=== PATIENT | female | born 1945 | race Caucasian/White ===

== ENCOUNTER → 2018-01-21 12:27 | Outpatient (CLI) | payer MEDICARE, SELFPAY ==
--- NOTE | 2018-01-21 12:31 | RAD_ITS ---
STUDY: X-RAY CHEST REASON FOR EXAM: Female, 72 years old. Anterior right chest breast discomfort. TECHNIQUE: PA and lateral views of the chest. COMPARISON: None. FINDINGS: The lungs are clear and expanded. There is no demonstrated pleural abnormality. Normal size heart. Normal mediastinum and alicia. Normal visualized pulmonary arteries. Normal visualized aortic arch and descending thoracic aorta. Normal visualized thoracic spine. Normal visualized ribs, clavicles, and shoulders. There is no demonstrated abnormality of the visualized soft tissue structures of the upper abdomen. RAD/Chest PA and Lateral IMPRESSION: No demonstrated acute cardiopulmonary process. Electronically Signed: Claire Monahan MD at 15:54 EDT Tel , Service support ,
== END ==
PROVIDERS: Family Provider Family Medicine; PCP Family Medicine; Visit Provider Nurse Practitioner Family
DX: R07.81 Pleurodynia (principal); R06.00 Dyspnea, unspecified
CPT/HCPCS: 71046

== ENCOUNTER → 2018-12-01 09:24 | Outpatient (CLI) | payer MEDICARE, SELFPAY ==
[2018-11-06 15:06] VITALS: BMI 27.7
--- NOTE | 2018-12-01 09:35 | RAD_ITS ---
STUDY: X-RAY - LEFT HAND REASON FOR EXAM: Female, 73 years old. Pain. TECHNIQUE: 2 view(s) of the hand. COMPARISON: None. FINDINGS: Normal radiocarpal articulation. Normal distal radioulnar joint. Normal visualized carpal bones. Normal carpal articulations Normal carpometacarpal articulation of the thumb. Normal second through fifth carpometacarpal joints. Normal metacarpi. Normal metacarpophalangeal joint of the thumb. Normal interphalangeal joint of the thumb. Normal proximal and distal phalanges of the thumb. Normal metacarpophalangeal joints of the second through fifth fingers. There is diffuse articular joint space narrowing of the proximal and distal interphalangeal joints of the second through fifth fingers, but without erosive changes or periarticular soft tissue swelling. Normal phalanges of the second through fifth fingers. The soft tissue structures are unremarkable. RAD/Hand 2 Views IMPRESSION: Joint space narrowing of the proximal and distal interphalangeal joint suggestive of osteoarthritis. Electronically Signed: Andrew Gee MD at 14:34 EST , Service support ,
--- NOTE | 2018-12-01 09:37 | RAD_ITS ---
STUDY: X-RAY - RIGHT HAND REASON FOR EXAM: Female, 73 years old. Pain. No known injury. TECHNIQUE: AP and lateral view(s) of the hand. COMPARISON: None. FINDINGS: Normal radiocarpal articulation. Normal distal radioulnar joint. Normal visualized carpal bones. Normal carpal articulations Normal carpometacarpal articulation of the thumb. Normal second through fifth carpometacarpal joints. Normal metacarpi. Normal metacarpophalangeal joint of the thumb. Normal interphalangeal joint of the thumb. Normal proximal and distal phalanges of the thumb. Normal metacarpophalangeal joints of the second through fifth fingers. There is diffuse articular joint space narrowing of the proximal and distal interphalangeal joints of the second through fifth fingers, but without erosive changes or periarticular soft tissue swelling. Normal phalanges of the second through fifth fingers. The soft tissue structures are unremarkable. RAD/Hand 2 Views IMPRESSION: Joint space narrowing of the proximal and distal interphalangeal joint suggestive of osteoarthritis. Electronically Signed: Andrew Gee MD at 14:34 EST , Service support ,
[2018-12-01 12:52] LABS: Cholesterol 193 mg/dL (200); High Density Lipoprotein 61 mg/dL; Triglycerides 80 mg/dL; Very Low Density Lipoprotein 16 mg/dL (5-40)
== END ==
PROVIDERS: Family Provider Family Medicine; PCP Family Medicine; Referring Provider Family Medicine; Visit Provider Family Medicine
DX: E78.5 Hyperlipidemia, unspecified (principal); M79.645 Pain in left finger(s); M79.644 Pain in right finger(s)
CPT/HCPCS: 36415; 73120; 80061

== ENCOUNTER 2019-03-12 13:00 | Outpatient (RCR) | payer MEDICARE, SELFPAY ==
[2019-02-24 15:37] VITALS: BMI 26.9
--- NOTE | 2019-02-27 13:45 | HP.PTEVAL_ITS ---
Patient's Visit Information DARA QUESADA is a 74 year old F referred to Physical Therapy by Aguila Gonzalez DO with a diagnosis of BPPV. Date of Evaluation: 02/27/19 Physical Therapist: Rey Dumont DPT, OCS, CSCS - Visit Plan Frequency: 1x/Week Duration: 4-6 Weeks Plan: weekly as needed x 2-4 for ensure symptoms resolving while weans meclizine, psoitional if needed adn progress habituation/return to head movement ex. - Subjective Findings: Dizzy since last Saturday. Meclizine kicked in Saturday. Worked at [employer] Saturday adn was fine. Went home 4:00ish and got in tub and washed hair and dried hair and felt a little funny dizzy. Leaned over to dry hair and fell over forward. Room was spinning. got her into bed then ceiling fan moved. nauseous. Happened with movement for 2 days and saw doctor on Saturday slightly better but not great. Sleeps OK, not spinning in bed anymore. Feeels a little light headed overall but has been in bed all weak. No appetite. Basic ADLs are OK but careful. Washed hair today. Stilla voiding going out. Has avoided working in [employer]. 80% better overall. - Objective Walks normal but hesitant to move head, trasnfers normal. c/s aROM WNL and painfree. Balance is pretty good for age but hesitant. Oculomotor is unremarkable: no nystagmus with gaze or head shake. pursuit and saccades are normal. - head thrust. normal convergence. - skew eye deviation. MSQ is normal [id number] up from L knee and head turns and nods whcih give quick 2 seconds dizzy of 3/10 - Balance Scores Functional Gait Assessment Score: 26 % Disability: 13.3400 CATSIB Score (Max score 120 seconds): 95 - Goals Goal 1:: Abolish dizzy ness Goal Time Frame: 2-4 Weeks Goal 2:: Pateint back to 100% activities without symptoms. Goal Time Frame: 4-6 Weeks Goal 3:: Grocery shop and flower garden normally Goal Time Frame: 2-4 Weeks - Rehabilitation Potential Physical Therapy Diagnosis: resolving BPPV Rehabilitation Potential: Fair - Anticipated Interventions Patient/Client Instruction: Educate patient on: Condition, Plan of Care For the Purpose of:: To increase tolerance to activity/condition/position Comment: vestibular exercises adn return to function/confidence. For the Purpose of:: To increase tolerance to activity/condition/position Thank you for the opportunity to evaluate your patient. For Medicare and Medicare HMO plans, please review the plan of care and approve it. It will need to be FAXED BACK to us at [phone] for Medicare purposes. For Medicare only, by signing this I certify the plan of care. Please let me know if there are questions or concerns regarding this plan of care. Physician Signature: Date:
--- NOTE | 2019-03-12 12:57 | HP.PTDCSUM ---
HP - PT D/C Summary It has been my pleasure to treat DARA QUESADA under orders from Aguila Gonzalez DO, for the diagnosis of BPPV for a total of 3 visit(s). Discharge Date: 03/12/19 Please see the following information for a summary of their discharge status. - Subjective Subjective: Getting better. Not as goofy as I used to be. Saw dr. Gonzalez at concert and feeling adn looking better. No more meclizine. Much better overall. Worked out in garden today. Slight dizzyness opening eyes in shower. Doing eye exercises without a problem. No dizzy spells. activities are normal. - Overall Improvement % Improvement: 100 - Objective Objective/Function: No dizzyness created today with VOR, MSQ, and - B hallpike adn roll tests. Walks wella dn feeling good. - Goals Goal 1:: Abolish dizzy ness Goal Progress: Progressing Goal 2:: Pateint back to 100% activities without symptoms. Goal Progress: Goal Met Goal 3:: Grocery shop and flower garden normally Goal Progress: Goal Met - Plan Plan: D/c - D/C Information Discharge Comments: Doing well, no problems. Will contact doctor if dizzyness returns. If there are questions or concerns regarding this patient's physical therapy, please feel free to call me at [phone]. Thank you for the referral of this patient. Sincerely, Rey Dumont, DPT, OCS, CSCS
== END 2019-03-12 19:00 | disposition home or self-care (01) ==
LOC: PT 13:00
PROVIDERS: Family Provider Family Medicine; PCP Family Medicine; Referring Provider Family Medicine; Visit Provider Family Medicine
DX: H81.10 Benign paroxysmal vertigo, unspecified ear (principal)
CPT/HCPCS: 97162; 97530

== ENCOUNTER → 2020-06-23 | Outpatient (CLI) | payer MEDICARE, SELFPAY ==
[2020-06-23 09:43] VITALS: BMI 25.8
--- NOTE | 2020-06-23 10:34 | RAD_ITS ---
STUDY: X-RAY - RIGHT KNEE REASON FOR EXAM: Female, 75 years old. right knee pain, recent fall TECHNIQUE: 4 view(s) of the knee. COMPARISON: None. FINDINGS: Normal visualized distal femur. Normal visualized proximal tibia and fibula. Normal proximal tibiofibular articulation. There are mild degenerative changes with joint space narrowing of the medial knee compartment. Normal lateral femorotibial compartment. Normal patellofemoral articulation. The soft tissue structures are unremarkable. RAD/Knee 4 or More Views IMPRESSION: Mild degenerative changes or joint space narrowing of the medial knee compartment. There is no evidence of fracture, dislocation, free intra-articular calcifications, or suprapatellar effusion. Electronically Signed: Charanjit Abel MD at 22:47 EDT , Service support ,
== END | disposition home or self-care (01) ==
LOC: MTRAD 10:34
PROVIDERS: PCP Family Medicine; Referring Provider Nurse Practitioner Family; Visit Provider Nurse Practitioner Family
DX: M25.561 Pain in right knee (principal)
CPT/HCPCS: 73564

== ENCOUNTER 2020-07-06 09:00 | Outpatient (RCR) | payer MEDICARE, SELFPAY ==
[2020-06-25 10:37] VITALS: BMI 26.9
--- NOTE | 2020-06-29 09:27 | HP.PTEVAL_ITS ---
Patient's Visit Information DARA QUESADA is a 75 year old F referred to Physical Therapy by BINDU Patrick with a diagnosis of BPV. Date of Evaluation: 06/29/20 Physical Therapist: Rey Dumont DPT, OCS, CSCS - Visit Plan Frequency: 1x/Week Duration: 2-4 Weeks Plan: weekly as needed 2-4 weeks for positional treatments and progressions of acitvity. - Subjective Dizzyness returned(had this years ago) a week ago. Had knee pain and woke up in am feeling dizzy upon sitting up, room spun transiently. Had knee checked out and x ray and did OK. Later that day leaned over to squirt trash can and got very dizzy and fell. Lasted several minutes. Then went to bed. [facility] and given BD exercises adn slowly improving. 80% better. Last spinning was last night at supper doing BD exercises. Avoids activities because of this. Reads but very little else. Hpouse cleaning has not been done. Not employed. Sleeps well. Hobbies include crafting cards and stamping and work in [employer] wh[employer]alyteh she cannot do. R knee hurts and hard to get off floor anyway. Fell one time slipping on kitchen floor wetness. Cancelled trip to [place] due to dizzyness. - Pain R knee Pain Intensity (Out of 10): 2 Pain Intensity Range: 2, 7 Comment: Dr. Gonzalez for knee - Objective Walks slow and hesitant but I. Trasnfers I. cervical AROM is WNL and painfree but hesitant to move. - R Hallpike. + L hallpike slight dizzyness and slight appearing up torsional nystagmus. Treated with Hammad then nauseous and did not wish to reattempt. - Balance Scores Functional Gait Assessment Score: 23 % Disability: 23.3400 - Goals Goal 1:: Pt feel dizzyness abolished and 99% better. Goal Time Frame: 2-4 Weeks Goal 2:: Pt return to wrok in [employer] withotu hesitation Goal Time Frame: 2-4 Weeks Goal 3:: FGA to show improvement in fucntion. Goal Time Frame: 2-4 Weeks - Rehabilitation Potential Physical Therapy Diagnosis: L post canal BPPV Rehabilitation Potential: Fair - Anticipated Interventions Patient/Client Instruction: Educate patient on: Condition, Plan of Care For the Purpose of:: To increase tolerance to activity/condition/position Therapeutic Exercise to Include: Gait and locomotor training Comment: Positional For the Purpose of:: To increase tolerance to activity/condition/position Thank you for the opportunity to evaluate your patient. For Medicare and Medicare HMO plans, please review the plan of care and approve it. It will need to be FAXED BACK to us at [phone] for Medicare purposes. For Medicare only, by signing this I certify the plan of care. Please let me know if there are questions or concerns regarding this plan of ca re. Physician Signature: Date:
--- NOTE | 2020-09-13 15:24 | HP.PT.NRP ---
DARA QUESADA was seen in my office for initial evaluation on 06/29/20. The following Plan of Care was established for this patient: Initial Frequency: 1x/Week Initial Duration: 2-4 Weeks Patient/Client Instruction: Educate patient on: Condition, Plan of Care For the Purpose of:: To increase tolerance to activity/condition/position Therapeutic Exercise to Include: Gait and locomotor training For the Purpose of:: To increase tolerance to activity/condition/position This patient was last seen in our office 07/06/20. Pertinent comments regarding their Physical therapy will appear below: Pt seen two visits and was 80% better at last session. He cancelled his follow up. At this point, it has been over two months and I will discontinue from my care due to nonattendance. At this point I will be discontinuing this patient from physical therapy. I would be happy to see this patient again in the future if found appropriate by the physician. Thank you! Rey Dumont, DPT, OCS, CSCS
== END 2020-07-06 19:00 | disposition home or self-care (01) ==
LOC: PT 09:00
PROVIDERS: PCP Family Medicine; Referring Provider Physician Assistant; Visit Provider Physician Assistant
DX: H81.10 Benign paroxysmal vertigo, unspecified ear (principal)
CPT/HCPCS: 97161; 97530

== ENCOUNTER 2020-12-28 23:24 | Emergency (ER) | payer MEDICARE, SELFPAY ==
[2020-06-25 10:37] VITALS: BMI 26.9
[2020-12-28 23:25] VITALS: BP 150/95; PULSE 87; RESP 16; TEMP 36.6; O2SAT 98; BMI 26.5
--- NOTE | 2020-12-28 23:33 | ED.DCSUM_ITS ---
History of Present Illness Chief Complaint: Chest Pain Informant: Patient Narrative: 75-year-old female presenting with chest pain which is present for 7 days but constant for the last 3 days. She describes it as retrosternal and radiating to her neck and her left shoulder. She denies cardiac history. Patient states she feels a little bit lightheaded and short of breath now. Patient states she recovered from COVID-19 that she had about a month ago. She denies fever, chills. She has nausea without vomiting. She states she has no significant medical history and only takes medication for arthritis and insomnia. She states she has been having difficulty sleeping even with Ambien. - Past Medical History (1) Benign paroxysmal vertigo Status: Chronic (2) Hyperlipemia Status: Chronic (3) Osteopenia Status: Chronic (4) Arthritis Status: Chronic Past Medical History - Allergies and Home Meds Allergies/Adverse Reactions: Allergies aspirin Allergy (Severe, Verified 12/28/20 23:29) Stomach Pain atorvastatin [From Lipitor] Allergy (Severe, Verified 12/28/20 23:29) Joint Pain chlorpheniramine [From Isoclor] Allergy (Severe, Verified 12/28/20 23:29) Heart Races codeine Allergy (Severe, Verified 12/28/20 23:29) Heart Races esomeprazole [From Nexium] Allergy (Severe, Verified 12/28/20 23:29) Joint Pain guaifenesin [From Isoclor] Allergy (Severe, Verified 12/28/20 23:29) Heart Races ibuprofen [From Motrin] Allergy (Severe, Verified 12/28/20 23:29) Heart Races morphine Allergy (Severe, Verified 12/28/20 23:29) Rash naproxen [From Naprosyn] Allergy (Severe, Verified 12/28/20 23:29) Stomach Pain prednisone Allergy (Severe, Verified 12/28/20 23:29) stomach pain propoxyphene [From Darvon] Allergy (Severe, Verified 12/28/20 23:29) Other Heart Races pseudoephedrine [From Isoclor] Allergy (Severe, Verified 12/28/20 23:29) Heart Races sulindac [From Clinoril] Allergy (Severe, Verified 12/28/20 23:29) Rash Penicillins Allergy (Intermediate, Verified 12/28/20 23:29) Rash Sulfa (Sulfonamide Antibiotics) Allergy (Intermediate, Verified 12/28/20 23:29) Rash Keflex Allergy (Severe, Uncoded 12/28/20 23:29) heart races Primary Care Physician: Aguila Gonzalez DO [Primary Care Provider] - Prior records reviewed: Yes Past Medical History: - - Reviewed in problem list Lives: Spouse/ Significant Other Smoking Status: Never smoker Alcohol: None Drugs: None Review of Systems General: Denies: Chills, Fever, Sweats Eyes: Denies: Visual changes - bilaterally, Diplopia ENT: Denies: Rhinorrhea, Sore throat Cardiovascular: Reports: Chest pain. Denies: Palpitations, Heart racing Respiratory: Reports: Dyspnea, Cough Gastrointestinal: Reports: Nausea. Denies: Abdominal pain, Vomiting Genitourinary: Denies: Dysuria, Hematuria, Frequency Musculoskeletal: Denies: Back pain, Extremity Pain Skin: Denies: Rash, Wounds Neurological: Denies: Headache, Weakness, Numbness Physical Exam Vital Signs/Narrative: Vital Signs Temp Pulse Resp BP Pulse Ox 12/28/20 23:25 97.9 F 87 16 150/95 H 98 Inital Vital Signs reviewed: Yes General: Well nourished, No Acute Distress Head: Atraumatic Eyes: Perrl, EOMI, Pale conjunctiva ENT: Moist mucous membranes, No rhinorrhea Cardiovascular: Regular rate, Regular rhythm Abdomen: Soft, Nontender, Nondistended Extremities: Nontender, No edema Skin: Normal color, No rash. Negative for: Cyanosis, Diaphoresis Neurological: Alert, Oriented x3, Cranial nerves II-XII grossly intact Psychological: Normal affect, Normal Mood Diagnostic/Tx/Re-eval Clinical Impression(s) from Imaging Studies Chest X-Ray 12/28/20 23:33 IMPRESSION: Normal x-ray examination of the chest. Electronically Signed: Dylon Hamilton DO at 0:09 EST Tel , Service support , Chest CTA 12/29/20 00:14 IMPRESSION: Normal CTA chest examination, without a demonstrated pulmonary embolism or arterial dissection. Lungs are clear. Mild COPD. Electronically Signed: Dylon Hamilton DO at 0:58 EST Tel , Service support , Laboratory Data 12/28/20 12/28/20 12/28/20 23:45 23:45 23:45 WBC 6.8 RBC 4.28 Hgb 13.4 Hct 39.7 MCV 92.8 MCH 31.3 MCHC 33.8 RDW Std Deviation 42.3 RDW Coeff of Vanda 12.3 Plt Count 254 MPV 9.2 Immature Gran % (Auto) 0.600 Neut % (Auto) 46.7 L Lymph % (Auto) 42.4 H [place] % (Auto) 8.2 Eos % (Auto) 1.5 Baso % (Auto) 0.6 Absolute Neuts (auto) 3.2 Absolute Lymphs (auto) 2.88 Nucleated RBC % 0 D-Dimer Quant (PE/DVT) 0.84 H* Sodium 141 Potassium 3.6 Chloride 109 H Carbon Dioxide 27.0 Anion Gap 5 BUN 14 Creatinine 0.95 Estim Creat Clear Calc 48.64 Est GFR (MDRD) Af Amer 74 Est GFR (MDRD) Non-Af 61 BUN/Creatinine Ratio 14.8 Glucose 99 Calcium 9.0 Troponin I < 0.015 - Medical Decision Making 75-year-old female presenting with chest pain which is been constant for 3 days. She notes that it started about 7 days ago. Today she feels like she has shortness of breath. Patient states she had Covid about a month ago. Denies cardiac history. Patient had EKG performed on arrival which is sinus rhythm with slight sinus arrhythmia without ST elevations or depressions as interpreted by myself. Chest x-ray is interpreted by myself shows no acute cardiopulmonary process. Patient's troponin is negative. Given that she has had 3 days of constant pain I do not believe this is cardiac. She did have an elevated D- dimer at 0.84 it had follow-up CTA of the chest which did not identify any pulmonary emboli, acute infection, dissection. Patient CBC shows a white blood cell count of 6.6, hemoglobin 13.4, platelets 254. GFR and electrolytes unremarkable. Patient has multiple medicine allergies but states that she wants to try Naprosyn. She states has had this in the past and had stomach pain. She does not want to try anything narcotic. Patient will be discharged home with a prescription for Naprosyn. Chest pain 1. Chest pain ED Disposition - Plan for ED Patient: Disposition: Home or Assisted Living Instructions: ED Chest Pain, Uncertain Cause Prescriptions: Naproxen [Naprosyn] 500 mg PO BID PRN #20 tab Prescription Printed Referrals: Aguila Gonzalez DO [Primary Care Provider] -
--- NOTE | 2020-12-28 23:33 | EKG12_ITS ---
Test Reason : DIZZY Blood Pressure : / mmHG Vent. Rate : 083 BPM Atrial Rate : 083 BPM P-R Int : 156 ms QRS Dur : 084 ms QT Int : 382 ms P-R-T Axes : 056 023 050 degrees QTc Int : 448 ms Normal sinus rhythm with sinus arrhythmia Normal ECG Confirmed by CAITLIN FYR, SETH ([id number]), editor greeting card ALONA WEST ([id number]) on 01/02/2021 2:35:16 PM Referred By: JERRELL Confirmed By:SETH TUCKER MD
--- NOTE | 2020-12-28 23:33 | RAD_ITS ---
STUDY: X-RAY CHEST REASON FOR EXAM: Female, 75 years old. chest pain TECHNIQUE: Single AP portable view of the chest. COMPARISON: 01/21/2018 FINDINGS: The lungs are clear and expanded. There is no demonstrated pleural abnormality. Normal size heart. Normal mediastinum and alicia. Normal visualized pulmonary arteries. Normal visualized aortic arch and descending thoracic aorta. Normal visualized thoracic spine. Normal visualized ribs, clavicles, and shoulders. There is no demonstrated abnormality of the visualized soft tissue structures of the upper abdomen. RAD/Chest 1 View (Portable) IMPRESSION: Normal x-ray examination of the chest. Electronically Signed: Dylon Hamilton DO at 0:09 EST Tel , Service support ,
[2020-12-28 23:50] VITALS: BP 155/94; PULSE 73; RESP 18; O2SAT 98
[2020-12-28 23:52] LABS: Absolute Lymphocyte Count 2.88 X10^3/uL (0.83-4.51); Absolute Neutrophil Count 3.2 X10^3/uL (2.0-7.7); Basophil# 0.04 X10^3/uL; Basophil% 0.6 % (0-1); Eosinophils% 1.5 % (0-5); Hematocrit 39.7 % (37-47); Hemoglobin 13.4 g/dL (12.0-15.0); Lymphocyte # 2.88 X10^3/ul (4.0); Lymphocyte % 42.4 % (19-41); Mean Corp Hgb Conc 33.8 g/dL (32-36); Mean Corpuscular Hgb 31.3 pg (27.0-32.0); Mean Corpuscular Volume 92.8 fL (81-99); Mean Platelet Vol. 9.2 fl (6.2-12.0); Monocyte# 0.56 X10^3/uL; Monocyte% 8.2 % (0-10); NRBC Flagged by Analyzer 0 % (0-5); Neutrophil # 3.18 X10^3/uL (2.7-7.7); Neutrophil % 46.7 % (47-70); Platelet Count 254 K/mm3 (150-450); RBC Distribution Width CV 12.3 % (11.6-14.6); RBC Distribution Width SD 42.3 fl (35.1-43.9); Red Blood Count 4.28 M/mm3 (4.2-5.4); White Blood Count 6.8 K/mm3 (4.4-11.0)
[2020-12-29 00:09] LABS: Anion Gap 5 (5-15); BUN 14 mg/dL (7-18); BUN/Creat Ratio 14.8 RATIO (10-20); Chloride 109 mmol/L (98-107); Creatinine, Serum 0.95 mg/dL (0.55-1.02); EST Glomerular Filtration Rate 61 mL/min (>60); Est Glom Filt Rate - Afr Amer 74 mL/min (>60); Estimated Creatinine Clearance 48.64 ml/min; Glucose 99 mg/dL (74-106); Potassium 3.6 mmol/L (3.5-5.1); Sodium Level 141 mmol/L (136-145)
[2020-12-29 00:12] LABS: D-Dimer Quantitative (DVT/PE) 0.84 FEU/ug/m (0.27-0.49)
--- NOTE | 2020-12-29 00:14 | CT_ITS ---
STUDY: CTA CHEST REASON FOR EXAM: Female, 75 years old. chest pain RADIATION DOSAGE (If Supplied By Facility): CTDIvol = ( 13.68 ) mGy, DLP = ( 304.25 ) mGycm TECHNIQUE: The examination was performed with the intravenous administration of IV 75mL Isovue-370. Post-processing of the angiographic images was performed, with multiplanar reformation and 3D reconstruction. Individualized dose optimization techniques were used for this CT. COMPARISON: None. FINDINGS: Normal enhancement of the main pulmonary artery and right and left pulmonary arteries. Normal enhancement of the bilateral peripheral pulmonary arteries. There is no demonstrated pulmonary embolism. Normal thoracic aorta and visualized great vessels. There is no demonstrated aortic dissection. Normal heart and pericardium. Normal mediastinum. Normal hilar regions. Normal visualized trachea and bronchi. The lungs are hyper expanded, with flattening of the hemidiaphragms. Normal pulmonary parenchyma. Normal pleura. Normal chest wall structures. Normal osseous structures. Normal visualized upper abdomen. CT/CTA Chest W/WO Contrast IMPRESSION: Normal CTA chest examination, without a demonstrated pulmonary embolism or arterial dissection. Lungs are clear. Mild COPD. Electronically Signed: Dylon Hamilton DO at 0:58 EST Tel , Service support ,
[2020-12-29 02:19] VITALS: BP 159/85; PULSE 61; RESP 16; O2SAT 96
[2020-12-29 03:04] VITALS: BP 147/69; PULSE 64; RESP 16
[2020-12-29 03:05] VITALS: BP 147/69; PULSE 64; RESP 16
== END 2020-12-29 03:05 | disposition home or self-care (01) ==
PROVIDERS: Emergency Provider Student in an Organized Health Care Education/Training Program; PCP Family Medicine
DX: R07.9 Chest pain, unspecified (principal); E78.5 Hyperlipidemia, unspecified; M19.90 Unspecified osteoarthritis, unspecified site; Z86.16 Personal history of COVID-19
CPT/HCPCS: 71045; 71275; 80048; 84484; 85025; 85379; 93005; 99284; Q9967; A4216

== ENCOUNTER → 2021-01-03 14:24 | Outpatient (CLI) | payer MEDICARE, SELFPAY ==
[2021-01-03 15:50] LABS: ALB/GLOB Ratio 1.1 RATIO (0.9-2.4); AST(SGOT) 12 U/L (15-37); Alanine Aminotransfer ALT/SGPT 21 U/L (13-56); Albumin, Serum 3.7 g/dL (3.2-5.0); Alkaline Phosphatase 68 U/L (45-117); Anion Gap 5 (5-15); BUN 18 mg/dL (7-18); BUN/Creat Ratio 19.8 RATIO (10-20); Calcium,Total 9.3 mg/dL (8.5-10.1); Chloride 104 mmol/L (98-107); Creatinine, Serum 0.91 mg/dL (0.55-1.02); EST Glomerular Filtration Rate 64 mL/min (>60); Est Glom Filt Rate - Afr Amer 78 mL/min (>60); Globulin 3.4 g/dL (2.2-4.2); Glucose 99 mg/dL (74-106); Protein, Total 7.1 g/dL (6.4-8.2); Sodium Level 139 mmol/L (136-145)
[2021-01-03 15:52] LABS: Hemoglobin 14.1 g/dL (12.0-15.0); Mean Corp Hgb Conc 33.6 g/dL (32-36); Mean Corpuscular Hgb 31.5 pg (27.0-32.0); Platelet Count 278 K/mm3 (150-450); RBC Distribution Width CV 12.3 % (11.6-14.6); RBC Distribution Width SD 42.7 fl (35.1-43.9); Red Blood Count 4.47 M/mm3 (4.2-5.4); White Blood Count 7.6 K/mm3 (4.4-11.0)
[2021-01-03 15:53] LABS: Erythrocyte Sedimentation Rate 6 mm/hr (0-30)
== END ==
PROVIDERS: PCP Family Medicine; Referring Provider Family Medicine; Visit Provider Family Medicine
DX: H81.10 Benign paroxysmal vertigo, unspecified ear (principal); M25.50 Pain in unspecified joint; R60.9 Edema, unspecified
CPT/HCPCS: 36415; 80053; 85027; 85652

== ENCOUNTER → 2022-10-08 | Outpatient (CLI) | payer MEDICARE, SELFPAY ==
--- NOTE | 2022-10-08 14:07 | CT_ITS ---
STUDY: CT MAXILLOFACIAL SINUSES REASON FOR EXAM: Female, 77 years old. Facial pain and swelling after fall RADIATION DOSAGE (If Supplied By Facility): CTDIvol = ( 29.38 ) mGy, DLP = ( 562.15 ) mGycm TECHNIQUE: The patient was scanned in a multi detector CT scanner. High resolution axial imaging was performed without the administration of intravenous contrast material. Sagittal and coronal images were reconstructed. Individualized dose optimization techniques were used for this CT. COMPARISON: None. FINDINGS: FRONTAL SINUSES: Normal aeration, without mucosal inflammatory disease. ETHMOIDAL SINUSES: Normal aeration, without mucosal inflammatory disease. MAXILLARY SINUSES: Normal aeration, without mucosal inflammatory disease. SPHENOIDAL SINUSES: There is a 4 mm sphenoid sinus mucosal retention cyst. There is patency of the bilateral maxillary infundibuli with normal uncinate processes, ethmoid bullae, and hiatus semilunaris. Normal bilateral middle turbinates. Normal bilateral inferior turbinates. There is a right-sided nasal spur with minimal deviation. There is patency of the bilateral nasal airways. The visualized bilateral orbital contents are normal. There is visualized degenerative change of the cervical spine otherwise normal-appearing osseous structures.. CT/Sinus/Facial Bone IMPRESSION: Her millimeter sphenoid sinus mucosal retention cyst, otherwise Normal CT examination of the maxillofacial sinuses. Electronically Signed: Claire Monahan MD at 15:16 EST ,
--- NOTE | 2022-10-08 14:07 | CT_ITS ---
STUDY: CT BRAIN WITH AND WITHOUT CONTRAST REASON FOR EXAM: Female, 77 years old. Headaches after head trauma/fall RADIATION DOSAGE (If Supplied By Facility): CTDIvol = ( 44.99 ) mGy, DLP = ( 1580.97 ) mGycm TECHNIQUE: Transaxial CT imaging of the brain was performed pre and post contrast administration. The examination was performed with intravenous administration of 50 CC ISOVUE 300. Individualized dose optimization techniques were used for this CT. COMPARISON: None. FINDINGS: Normal soft tissue structures. Normal calvarium. There is mild cerebral atrophy with widening of the extra-axial spaces and ventricular dilatation. There are few areas of decreased attenuation within the white matter tracts of the supratentorial brain, consistent with microvascular disease changes. Normal basal ganglia and thalami. Normal brainstem. Visualized [place]-cisterna magna. Normal cerebellum. Contrast images demonstrate a cystic structure within the left side transverse sinus suggesting a probable focus of arachnoid cyst. There is no intracranial hemorrhage. There are no findings of an acute ischemic infarction. Normal visualized paranasal sinuses. CT/Brain/Head W/WO Contrast IMPRESSION: Atrophy no visualized acute hemorrhage infarct or edema or evidence of enhancing mass or extra-axial fluid collection. Electronically Signed: Claire Monahan MD at 15:01 EST Reading Location ID and State: [facility] / [place] Tel , Service support ,
[2022-10-08 14:56] LABS: CREATININE FINGERSTICK < 0.9 mg/dL (0.55-1.02); EGFR FINGERSTICK > 60.0000 mL/min (>60)
== END | disposition home or self-care (01) ==
PROVIDERS: PCP Family Medicine; Referring Provider Physician Assistant; Visit Provider Physician Assistant
DX: R51.9 Headache, unspecified (principal); R22.0 Localized swelling, mass and lump, head
CPT/HCPCS: 70470; 70486

== ENCOUNTER → 2022-11-28 | Outpatient (CLI) | payer MEDICARE, SELFPAY ==
[2022-11-28 15:00] LABS: Absolute Lymphocyte Count 2.23 X10^3/uL (0.83-4.51); Absolute Neutrophil Count 2.7 X10^3/uL (2.0-7.7); Basophil# 0.05 X10^3/uL; Basophil% 0.9 % (0-1); Eosinophil# 0.13 X10^3/uL; Eosinophils% 2.3 % (0-5); Hematocrit 39.4 % (37-47); Hemoglobin 13.2 g/dL (12.0-15.0); Lymphocyte # 2.23 X10^3/ul (0.83-4.51); Lymphocyte % 39.9 % (19-41); Mean Corp Hgb Conc 33.5 g/dL (32-36); Mean Corpuscular Hgb 32.6 pg (27.0-32.0); Mean Corpuscular Volume 97.3 fL (81-99); Mean Platelet Vol. 9.6 fl (6.2-12.0); Monocyte# 0.48 X10^3/uL; Monocyte% 8.6 % (0-10); NRBC Flagged by Analyzer 0 % (0-5); Neutrophil # 2.68 X10^3/uL (2.7-7.7); Neutrophil % 47.9 % (47-70); Platelet Count 274 K/mm3 (150-450); RBC Distribution Width CV 12.3 % (11.6-14.6); Red Blood Count 4.05 M/mm3 (4.2-5.4); White Blood Count 5.6 K/mm3 (4.4-11.0)
[2022-11-28 16:14] LABS: ALB/GLOB Ratio 1.1 RATIO (0.9-2.4); AST(SGOT) 15 U/L (15-37); Alanine Aminotransfer ALT/SGPT 15 U/L (13-56); Albumin, Serum 3.5 g/dL (3.2-5.0); Alkaline Phosphatase 68 U/L (45-117); Anion Gap 8 (5-15); BUN 14 mg/dL (7-18); BUN/Creat Ratio 15.1 RATIO (10-20); Calcium,Total 9.1 mg/dL (8.5-10.1); Chloride 107 mmol/L (98-107); Cholesterol 221 mg/dL (200); Creatinine, Serum 0.93 mg/dL (0.55-1.02); EST Glomerular Filtration Rate 62 mL/min (>60); Est Glom Filt Rate - Afr Amer 75 mL/min (>60); Globulin 3.2 g/dL (2.2-4.2); Glucose 99 mg/dL (74-106); High Density Lipoprotein 60 mg/dL; Potassium 3.9 mmol/L (3.5-5.1); Protein, Total 6.7 g/dL (6.4-8.2); Sodium Level 142 mmol/L (136-145); Triglycerides 170 mg/dL; Very Low Density Lipoprotein 34 mg/dL (5-40)
== END | disposition home or self-care (01) ==
PROVIDERS: PCP Family Medicine; Referring Provider Family Medicine; Visit Provider Family Medicine
DX: Z00.00 Encounter for general adult medical examination without abnormal findings (principal); H81.10 Benign paroxysmal vertigo, unspecified ear; E78.5 Hyperlipidemia, unspecified
CPT/HCPCS: 36415; 80053; 80061; 85025

== ENCOUNTER → 2023-01-08 | Outpatient (CLI) | payer MEDICARE, SELFPAY ==
--- NOTE | 2023-01-08 12:53 | BI_ITS ---
MAMMOGRAPHY - BILATERAL SCREENING 3-D TOMOSYNTHESIS REASON FOR EXAM: Female, 77 years old. Routine screening PERTINENT HISTORY: No significant family history. TECHNIQUE: 2-D mammograms and 3-D Tomosynthesis of the breast (s) were performed. CAD was performed. COMPARISON: 10/09/2019 FINDINGS: The breast composition is heterogeneously dense that can obscure small breast masses. Scattered benign calcifications are seen. No dense spiculated masses or suspicious microcalcifications are identified. No architectural distortion is identified. There is no skin thickening or retraction. There has been no significant change since the prior study. BI/SCRN MAMM (CAD)W/TAYLER BILAT IMPRESSION: No mammographic signs of malignancy. Routine yearly mammograms recommended. ASSESSMENT CATEGORY: BIRADS Category 2: Benign. A letter regarding these results will be sent to the patient by the facility within 30 days. FOLLOW UP RECOMMENDATION: Yearly follow up mammogram recommended. (A) Approximately 10% of breast cancers are not detected by mammography. A normal mammogram should not delay biopsy of a clinically suspicious abnormality. Electronically Signed: Gaetano Schulte MD at 14:25 EDT ,
--- NOTE | 2023-01-08 13:00 | BD_ITS ---
STUDY: DUAL ENERGY X-RAY ABSORPTIOMETRY / DXA REASON FOR EXAM: Female, 77 years old. Screening TECHNIQUE: Bone Mineral Density (BMD) measurements of lumbar spine and bilateral hips were obtained. COMPARISON: None. FINDINGS: Lumbar Spine (L1-L4): g/cm2 (0.770) / T-score (-2.3) / Z-score (0.2) Findings are suggestive of osteopenia with a high fracture risk. Left Femur Total: g/cm2 (0.805) / T-score (-1.1) / Z-score (0.8) Left Femoral Neck: g/cm2 (0.688) / T-score (-1.5) / Z-score (0.7) Right Femur Total: g/cm2 (0.805) / T-score (-1.1) / Z-score (0.8) Right Femoral Neck: g/cm2 (0.694) / T-score (-1.4) / Z-score (0.8) BD/Dexa Bone Density Study IMPRESSION: The patient is considered osteopenic as outlined below according to World Jani Organization (WHO) criteria with a high fracture risk. Reference Information: The T-score is the number of standard deviations above or below the standard which is normal for young adults at their peak bone mineral density. The World Health Organization (WHO) interprets the T-scores as follows: Above -1 Normal bone density Between -1 and -2.5 Osteopenia Equal to / or below -2.5 Osteoporosis As a practical clinical guideline, osteopenia may be graded as follows: Mild -1 through -1.5 Moderate -1.6 through -2.0 Severe -2.1 through -2.4 The Z-score is the number of standard deviations above or below age-matched controls. A Z-score of less than -1.5 would be considered abnormal. References: 1. NIH Osteoporosis and Related Bone Diseases www osteo.org 2. International Society for Clinical Densitometry www iscd.org 3. National Osteoporosis Foundation www nof.org Electronically Signed: Andrew Gee MD at 11:02 EDT ,
== END | disposition home or self-care (01) ==
LOC: OPBD 12:50
PROVIDERS: PCP Family Medicine; Visit Provider Family Medicine
DX: Z12.31 Encounter for screening mammogram for malignant neoplasm of breast (principal); Z78.0 Asymptomatic menopausal state
CPT/HCPCS: 77063; 77067; 77080

== ENCOUNTER → 2023-12-03 | Outpatient (CLI) | payer MEDICARE, SELFPAY ==
[2023-12-03 12:16] LABS: Absolute Lymphocyte Count 2.04 X10^3/uL (0.83-4.51); Absolute Neutrophil Count 2.5 X10^3/uL (2.0-7.7); Basophil# 0.05 X10^3/uL; Basophil% 0.9 % (0-1); Eosinophil# 0.14 X10^3/uL; Eosinophils% 2.5 % (0-5); Hematocrit 38.9 % (37-47); Hemoglobin 12.7 g/dL (12.0-15.0); Lymphocyte # 2.04 X10^3/ul (0.83-4.51); Lymphocyte % 36.8 % (19-41); Mean Corp Hgb Conc 32.6 g/dL (32-36); Mean Corpuscular Hgb 31.4 pg (27.0-32.0); Mean Platelet Vol. 10.3 fl (6.2-12.0); Monocyte# 0.74 X10^3/uL; Monocyte% 13.4 % (0-10); NRBC Flagged by Analyzer 0 % (0-5); Neutrophil # 2.54 X10^3/uL (2.7-7.7); Neutrophil % 45.9 % (47-70); Platelet Count 256 K/mm3 (150-450); RBC Distribution Width CV 12.5 % (11.6-14.6); RBC Distribution Width SD 44.4 fl (35.1-43.9); Red Blood Count 4.05 M/mm3 (4.2-5.4); White Blood Count 5.5 K/mm3 (4.4-11.0)
--- OUTSIDE RECORDS SUMMARY | 2023-12-03 12:30 | XMS RPT_ITS | CCD ---
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 Role Phone KEYONNA LIRIANO DO Primary Care Physician Problems Problem Classification Problem Date Documented Da te Episodic/Chronic E Codes: Fall (1 source) Fall on same level; Translations: [Fall on same level, unspecified, initial encounter] Episodic Fracture of lower limb (1 source) Closed fracture of lateral malleolus; Translations: [Displaced fracture of lateral malleolus of right fibula, initial encounter for closed fracture] Episodic Results Test Name Value Interpretation Reference Range Facil ity Encounters Encounter Date Encounter Type Care Provider Facility Start: 03-01-2022 End: 04-03-[address] JULIANNE MCKENZIE DO [facility] Social History Date Type Detail Facility Tobacco smoking status No Smoking Status Entered [facility] Sex Assigned At [facility] Functional Status Date Assessment Result Facility 03-01-2022 Functional Status Objective: Vitals: HR: 94 O2 sat: 98% BP: 124/82 Gait: Antalgic gait with flat foot gait pattern on the R Weight bearing status: WBAT: Joint Mobility: R foot toe ROM grossly restricted as compared bilaterally. Demonstrates limited toe dexterity. Effusion: min to no deann effusion. Mild effusion R foot toes grossly. Foot: Mild callus formation is observed on the plantar aspect of the R foot. No excess warmth, redness or signs if infection present. [facility] Evaluation + Plan note Note Date & Type Note Facility Evaluation + Plan note No data available for this section [facility] Hospital Discharge instructions Note Date & Type Note Facility Hospital Discharge instructions No data available for this section [facility] Progress note Note Date & Type Note Facility Progress note No data available for this section [facility] Summary Purpose Family History No Family History Records Found Advance Directives No Advanced Directives Records Found Additional Source Comments INFORMATION SOURCE (unrecogn ized section and content) Care Team (unrecognized sect ion and content) Personnel Name: KEYONNA LIRIANO DO Address: [facility] [address] FOR RECORDS PERTAINING TO PATIENTS WHO ARE OR HAVE BEEN ENROLLED IN A CHEMICAL DEPENDENCY/SUBSTANCEABUSE PROGRAM, SOME INFORMATION MAY BE OMITTED. This clinical summary was aggregated from multiple sources. Caution should be exercised in using it in the provision of clinical care. This summary normalizes information from multiple sources, and as a consequence, information in this document may materially change the coding, format and clinical context of patient data. In addition, data may be omitted in some cases. CLINICAL DECISIONS SHOULD BE BASED ON THE PRIMARY CLINICAL RECORDS. [facility] [address] [facility]. provides no warranty or guarantee of the accuracy or completeness of information in this document.
[2023-12-03 12:50] LABS: ALB/GLOB Ratio 1.1 RATIO (0.9-2.4); AST(SGOT) 14 U/L (15-37); Alanine Aminotransfer ALT/SGPT 21 U/L (13-56); Albumin, Serum 3.5 g/dL (3.2-5.0); Alkaline Phosphatase 63 U/L (45-117); Anion Gap 2 (5-15); BUN 17 mg/dL (7-18); BUN/Creat Ratio 20.3 RATIO (10-20); Calcium,Total 9.3 mg/dL (8.5-10.1); Chloride 105 mmol/L (98-107); Creatinine, Serum 0.84 mg/dL (0.55-1.02); EST Glomerular Filtration Rate 70 mL/min (>60); Est Glom Filt Rate - Afr Amer 85 mL/min (>60); Globulin 3.2 g/dL (2.2-4.2); Glucose 99 mg/dL (74-106); Potassium 3.9 mmol/L (3.5-5.1); Protein, Total 6.7 g/dL (6.4-8.2); Sodium Level 135 mmol/L (136-145)
== END | disposition home or self-care (01) ==
LOC: BIMLAB 10:38
PROVIDERS: PCP Family Medicine; Referring Provider Family Medicine; Visit Provider Family Medicine
DX: Z00.00 Encounter for general adult medical examination without abnormal findings (principal); H81.10 Benign paroxysmal vertigo, unspecified ear
CPT/HCPCS: 36415; 80053; 85025

== ENCOUNTER → 2024-01-14 | Outpatient (CLI) | payer MEDICARE, SELFPAY ==
--- NOTE | 2024-01-14 12:08 | BI_ITS ---
MAMMOGRAPHY - BILATERAL SCREENING REASON FOR EXAM: Female, 78 years old. Routine annual screening examination. PERTINENT HISTORY: Non-contributory. TECHNIQUE: Digital bilateral breast tayler (3D mammographic acquisition) in the CC and MLO projections. 2-D mediolateral oblique (MLO) and craniocaudad (CC) views of both breasts were obtained. CAD: Full Field Digital Mammography with Computer Added Detection was performed. COMPARISON: Comparison is made with prior study dated January 08, 2023. FINDINGS: Breast Composition: The breasts are heterogeneously dense, which may obscure small masses. There are no dominant masses or suspicious calcifications. Stable benign-appearing bilateral axillary lymph nodes. No other significant abnormalities are identified. There has been no significant change since the prior study. BI/SCRN MAMM (CAD)W/TAYLER BILAT IMPRESSION: Stable bilateral screening mammogram. Yearly follow-up mammogram recommended. (A) ASSESSMENT CATEGORY: BIRADS Category 2: Benign. A letter regarding these results will be sent to the patient by the facility within 30 days. Approximately 10% of breast cancers are not detected by mammography. A normal mammogram should not delay biopsy of a clinically suspicious abnormality. [id number] Electronically Signed: Andrew Gee MD at 13:24 EDT ,
== END | disposition home or self-care (01) ==
LOC: OPBI 12:08
PROVIDERS: PCP Family Medicine; Referring Provider Family Medicine; Visit Provider Family Medicine
DX: Z12.31 Encounter for screening mammogram for malignant neoplasm of breast (principal)
CPT/HCPCS: 77063; 77067

== ENCOUNTER → 2025-04-13 | Outpatient (CLI) | payer MEDICARE, SELFPAY ==
--- NOTE | 2025-04-13 13:04 | BI_ITS ---
EXAM: SCRN MAMM (CAD)W/TAYLER BILAT DATE: 04/13/2025 CLINICAL HISTORY: F, Age 80 y/o , SCREENING BREAST CANCER RISK ASSESSMENT: Na TECHNIQUE: Bilateral screening digital breast tomosynthesis with 2D and 3D images. Computer aided detection. COMPARISON: Prior exam(s) were compared FINDINGS: TISSUE DENSITY: The breast tissue is heterogeneously dense, which may obscure small masses. Bilateral Breast Mammographic Findings: No suspicious masses, calcifications or other abnormalities are identified. BI/SCRN MAMM (CAD)W/TAYLER BILAT IMPRESSION: No mammographic evidence of malignancy in either breast. OVERALL FINAL ASSESSMENT BI-RADS 1: NEGATIVE. RECOMMEND ANNUAL MAMMOGRAPHIC SCREENING. RECOMMENDATION: Routine annual follow-up in 1 Year A letter with findings and recommendations will be mailed to the patient. Reading Location: [id number]
== END | disposition home or self-care (01) ==
LOC: OPBD 13:02
PROVIDERS: PCP Family Medicine; Referring Provider Family Medicine; Visit Provider Family Medicine
DX: Z12.31 Encounter for screening mammogram for malignant neoplasm of breast (principal)
CPT/HCPCS: 77063; 77067

== ENCOUNTER → 2025-04-21 | Outpatient (CLI) | payer MEDICARE, SELFPAY ==
--- NOTE | 2025-04-21 09:50 | BD_ITS ---
PROCEDURE: DEXA BONE DENSITY STUDY 04/21/2025 REASON FOR EXAM: OSTEOPOROSIS F, age 80 y/o . Postmenopausal. TECHNIQUE: DEXA BONE DENSITY STUDY COMPARISON: Prior study dated January 08, 2023. FINDINGS: BMD and T-SCORES Lumbar spine: 0.822 g/cm2, T-score -1.8 Levels: L1 through L4 Change from prior: Improvement of 6.7%. Left femoral neck: 0.657 g/cm2, T-score -1.7 Femoral neck comparison data not recommended for monitoring change. Left total hip: 0.790 g/cm2, T-score -1.2 Change from prior: Loss of 1.8%. Right femoral neck: 0.649 g/cm2, T-score -1.8 Femoral neck comparison data not recommended for monitoring change. Right total hip: 0.763 g/cm2, T-score -1.5 Change from prior: Loss of 5.1%. The World Health Organization has defined the following categories based on bone density: Normal bone density: T-score equal to or greater than -1.0 Osteopenia: T-score between -1.0 and -2.5 Osteoporosis: T-score equal to or less than -2.5 The patient does meet the pharmacological treatment recommendations for prevention of osteoporosis. BD/Dexa Bone Density Study IMPRESSION: OSTEOPENIA. Recommend follow-up as clinically warranted. Reading Location: [id number]
--- OUTSIDE RECORDS SUMMARY | 2025-04-21 20:35 | XMS RPT_ITS | CCD ---
Author Organization [facility] Care Team Providers Care Patient Service Representative Name Role Phone KEYONNA GONZALEZ DO Primary Care Physician Dr. Keyonna Gonzalez Primary Care Provider 1(330 ) Dr. Keyonna Gonzalez Referring Provider 1(330) BINDU Boucher Attending Provider Unavailab Dr. Keyonna Wells Attending Provider [phone] Dr. Keyonna Gonzalez Primary Care Provider 1(330 ) Dr. Keyonna Gonzalez Referring Provider [phone] BINDU Castaneda Attending Provider Dr. Keyonna Gonzalez Attending Provider [phone] Dr. Keyonna Gonzalez DO Primary Care Provider Dr. Keyonna Gonzalez DO Attending Provider 1(330 ) Dr. Keyonna Gonzalez DO Referring Provider 1(330 ) Keyonna Gonzalez Primary Care Unavailable Carlos, Keyonna Bajwa Referring Unavailable Gregorio Castaneda Attending Unavailable Carlos, Keyonna R Primary Care Unavailable Brown, Keyonna R Referring Unavailable Marisa Pollock Attending Unavailable Carlos, Keyonna R Primary Care Unavailable Brown, Keyonna R Referring Unavailable Lexie Severino Attending Unavail able Carlos, Keyonna R Primary Care Unavailable Brown, Keyonna R Referring Unavailable Brown, Keyonna R Attending Unavailable Brown, Keyonna R Primary Care Unavailable Brown, Keyonna R Referring Unavailable Brown, Keyonna R Attending Unavailable Brown, Keyonna R Primary Care Unavailable Brown, Keyonna R Referring Unavailable Brown, Keyonna R Attending Unavailable Gregorio Castaneda Attending Unavailable Brown, Keyonna R Primary Care Unavailable Brown, Keyonna R Referring Unavailable Allergies Allergy Classification Reported Allergen(s) Allergy Type Date of Onset Reaction(s) Facility (5 sources) Aspirin Drug Allergy 09-26-20 Stomach Pain [facility] (5 sources) atorvastatin Drug Allergy 09-26-20 Joint Pain [facility] (5 sources) Cephalexin Drug Allergy 09-26-20 Other [facility] Comment on above: RACING HEART (5 sources) Chlorpheniramine Drug Allergy 09-26-20 Heart Races [facility] (5 sources) Codeine Drug Allergy 09-26-20 22 Heart [facility] (5 sources) Esomeprazole Drug Allergy 09-26-20 [facility] (5 sources) guaiFENesin Drug Allergy 09-26-20 22 [facility] (5 sources) Ibuprofen Drug Allergy 09-26-20 [facility] (5 sources) Morphine Drug Allergy 09-26-20 [facility] (5 sources) Naproxen Drug Allergy 09-26-20 Stomach Pain [facility] (5 sources) Penicillins Allergy to substance 09-26-20 [facility] (5 sources) predniSONE Drug Allergy 09-26-20 stomach [facility] (5 sources) Propoxyphene Drug Allergy 09-26-20 [facility] Comment on above: Heart Races (5 sources) Pseudoephedrine Drug Allergy 09-26-20 [facility] (5 sources) Sulfonamides (Antibiotic) Allergy to substance 09-26-20 [facility] (5 sources) Sulindac Drug Allergy 09-26-20 22 [facility] (1 source) Aspirin Drug Allergy 03-23-20 [facility] Rep[facility] (1 source) atorvastatin Drug Allergy 03-23-20 [facility] (1 source) Cephalexin Drug Allergy 03-23-20 25 [facility] (1 source) Chlorpheniramine Drug Allergy 03-23-20 25 [facility] (1 source) Codeine Drug Allergy 03-23-20 25 [facility] (1 source) Esomeprazole Drug Allergy 03-23-20 25 [facility] (1 source) guaiFENesin Drug Allergy 03-23-20 25 [facility] (1 source) Ibuprofen Drug Allergy 03-23-20 [facility] (1 source) Morphine Drug Allergy 03-23-20 [facility] (1 source) Naproxen Drug Allergy 03-23-20 [facility] (1 source) Penicillins Drug allergy (disorder) 03-23-20 [facility] (1 source) predniSONE Drug Allergy 03-23-20 [facility] (1 source) Propoxyphene Drug Allergy 03-23-20 [facility] (1 source) Pseudoephedrine Drug Allergy 03-23-20 [facility] (1 source) Sulfonamides (Antibiotic) Drug allergy (disorder) 03-23-20 [facility] (1 source) Sulindac Drug Allergy 03-23-20 [facility] Repository Medications Current Medications Medication Drug Class(es) Dates Sig (Normalized) Sig (Original) 0.05 ml aflibercept 40 mg/ml injection (2 sources) Vascular Endothelial Growth Factor Inhibitor Start: 09-18-2024 Aflibercept (Eylea) 2 mg/0.05 mL solution Active 2 mg INTRAVIT every 6 weeks September 18, 2024 1:00am benzonatate 100 mg oral capsule (5 sources) Non-narcotic Antitussive Start: 07-27-2024 take 2 capsules by mouth three times daily as needed for cough Benzonatate 100 mg capsule Active 200 mg PO THREE TIMES A DAY as needed for cough July 27, 2024 12:00am Start: 09-27-2023 End: 12-03-2023 take 2 capsules by mouth three times daily as needed for cough Benzonatate 100 mg capsule Discontinued 200 mg PO THREE TIMES A DAY as needed for cough September 27, 2023 1:00am December 03, 2023 10:50am Start: 09-27-2023 End: 12-03-2023 take 200 mg by mouth three times daily Benzonatate Discontinued 200 MG PO THREE TIMES A DAY September 27, 2023 1:00am December 03, 2023 10:50am cholecalciferol 0.125 mg oral capsule (2 sources) Vitamin D Start: 06-29-2024 take 1 capsule by mouth once daily Cholecalciferol (Vitamin D3) 125 mcg (5,000 unit) capsule Active 125 ug PO DAILY June 29, 2024 12:00am Multivitamin (Multiple Vitamins) tablet (5 sources) Start: 01-21-2018 Multivitamin ( Multiple Vitamins) tablet Active 1 {tbl} PO EVERY MORNING January 21, 2018 12:00am Start: 01-21-2018 take 1 tablet by alma th once daily in the morning Multivitamin (Multiple Vitamins) tablet Active 1 TABLET PO EVERY MORNING January 21, 2018 12:00am Start: 01-21-2018 take 1 tablet by alma th once daily in the morning Multivitamin (Multiple Vitamins) tablet Active 1 TABLET PO EVERY MORNING January 20, 2018 11:00pm promethazine hydrochloride 50 mg oral tablet (7 sources) Phenothiazine Start: 09-18-2024 take 1 tablet by mouth three times daily as needed Promethazine 50 mg tablet Active 50 mg PO THREE TIMES A DAY as needed for motion sickness September 18, 2024 1:00am Start: 06-25-2020 End: 09-27-2023 take 1 tablet by mouth three times daily as needed for nausea and vomiting Promethazine 25 mg tablet Discontinued 25 mg PO THREE TIMES A DAY as needed for nausea and vomiting June 25, 2020 12:00am September 27, 2023 3:07pm tiZANidine 2 mg oral capsule (7 sources) Central alpha-2 Adrenergic Agonist Start: 06-29-2024 take 1 mg by mouth every eight hours as needed Tizanidine 2 mg capsule Active 1 mg PO Q8H as needed June 29, 2024 12:00am Start: 06-23-2020 End: 09-27-2023 take 1 tablet by mouth at bedtime as needed Tizanidine 2 mg tablet Discontinued 2 mg PO AT BEDTIME as needed for muscle spasticity June 23, 2020 12:00am September 27, 2023 3:07pm zinc gluconate 100 mg oral tablet (2 sources) Start: 06-29-2024 Zinc Gluconate 100 mg tablet Active PO June 29, 2024 12:00am Completed/Discontinued Medications Medication Drug Class(es) Dates Sig (Normalized) Sig (Original) alendronic acid 70 mg oral tablet (17 sources) Bisphosphonate Start: 01-17-2023 End: 03-18-2025 take 1 tablet by mouth every week Alendronate (Fosamax) 70 mg tablet Discontinued 70 mg PO EVERY WEEK October 30, 2023 9:30am December 03, 2023 11:33am azithromycin 250 mg oral tablet (3 sources) Macrolide Antimicrobial Start: 09-27-2023 End: 12-03-2023 take 2-5 tablets by mouth once daily Azithromycin 250 mg tablet Discontinued 0 PO .COMPLEX 6 September 27, 2023 1:00am December 03, 2023 10:50am take 500 mg today (day 1), then 250 mg for 4 days (days 2-5) PO celecoxib 200 mg oral capsule (20 sources) Nonsteroidal Anti-inflammatory Drug Start: 01-21-2018 End: 03-16-2025 take 1 capsule by mouth once daily Celecoxib 200 mg capsule Discontinued 200 mg PO DAILY December 25, 2024 4:08pm March 16, 2025 8:31am citalopram 20 mg oral tablet (20 sources) Serotonin Reuptake Inhibitor Start: 04-16-2019 End: 03-23-2025 take 1 tablet by mouth once daily Citalopram 20 mg tablet Discontinued 20 mg PO DAILY January 17, 2023 4:17pm December 03, 2023 11:33am Start: 01-21-2018 End: 11-06-2018 take 1 tablet by mouth once daily Citalopram 20 mg tablet Discontinued 20 mg PO daily January 21, 2018 12:00am November 06, 2018 4:05pm doxycycline monohydrate 100 mg oral capsule (6 sources) Tetracycline-class Drug Start: 09-18-2024 End: 09-28-2024 take 1 capsule by mouth twice daily Doxycycline Monohydrate 100 mg capsule Discontinued 100 mg PO TWICE A DAY 16 08September 18, 2024 1:00am September 27, 2024 1:00am September 28, 2024 1:08am Start: 07-18-2024 End: 07-25-2024 take 1 capsule by mouth twice daily Doxycycline Monohydrate 100 mg capsule Discontinued 100 mg PO TWICE A DAY 14 July 18, 2024 12:00am July 24, 2024 12:00am July 25, 2024 12:12am Start: 04-17-2024 End: 06-29-2024 take 1 capsule by mouth every twelve hours Doxycycline Hyclate 100 mg capsule Discontinued 100 mg PO Q12H April 17, 2024 12:00am June 29, 2024 1:22pm meclizine hydrochloride 12.5 mg oral tablet (10 sources) Antiemetic Start: 06-23-2020 End: 01-03-2021 take 1 tablet by mouth twice daily as needed for dizziness Meclizine 12.5 mg tablet Discontinued 12.5 mg PO TWICE A DAY as needed for dizziness June 23, 2020 12:00am January 03, 2021 3:03pm Start: 02-23-2019 End: 06-23-2020 take 1 tablet by mouth three times daily Meclizine 25 mg tablet Discontinued 25 mg PO THREE TIMES A DAY February 23, 2019 12:00am June 23, 2020 9:41am naproxen 500 mg oral tablet (5 sources) Nonsteroidal Anti-inflammatory Drug Start: 12-29-2020 End: 01-03-2021 take 1 tablet by mouth twice daily as needed Naproxen 500 MG tablet Discontinued 500 mg PO TWICE DAILY NEEDED December 29, 2020 1:00am January 03, 2021 3:02pm predniSONE 10 mg oral tablet (2 sources) Start: 06-29-2024 End: 07-11-2024 Prednisone 10 mg tablet Discontinued 10 mg PO .COMPLEX 30 June 29, 2024 12:00am July 10, 2024 12:00am July 11, 2024 12:09am Take 4 pills for 3 days, 3 pills for 3 days, 2 pills for 3 days, take 1 pill for 3 days 72 hr scopolamine 0.0139 mg/hr transdermal system (19 sources) Anticholinergic Start: 12-14-2021 End: 09-27-2023 Scopolamine Base 1 mg over 3 days patch 3 day Discontinued 1 NMA TD Every 3 Days as needed for motion sickness November 21, 2022 11:20am September 27, 2023 3:07pm Start: 12-14-2021 End: 09-27-2023 Scopolamine Base Discontinue d 1 PATCH TD Every 3 Days November 21, 2022 11:20am September 27, 2023 3:07pm Start: 11-06-2018 End: 02-24-2019 Scopolamine Base 1 mg over 3 days patch 3 day Discontinued 1 NMA TD Every 3 Days as needed for motion sickness November 13, 2018 9:26am February 24, 2019 3:37pm Start: 11-06-2018 End: 02-24-2019 Scopolamine Base Discontinue d 1 PATCH TD Every 3 Days 4 November 13, 2018 9:26am February 24, 2019 3:37pm sucralfate 1000 mg oral tablet (5 sources) Aluminum Complex Start: 01-03-2021 End: 09-27-2023 take 1 tablet by mouth at bedtime Sucralfate (Carafate) 1 gram tablet Discontinued 1 g PO before meals and at bedtime January 03, 2021 1:00am September 27, 2023 3:07pm traMADol hydrochloride 50 mg oral tablet (5 sources) Opioid Agonist Start: 01-21-2018 End: 02-06-2018 take 1 tablet by mouth every twelve hours as needed for pain Tramadol 50 mg tablet Discontinued 50 mg PO Q12H as needed for pain January 21, 2018 12:00am February 06, 2018 2:42pm zolpidem tartrate 10 mg oral tablet (10 sources) gamma-Aminobuty chaz Acid-ergic Agonist Start: 12-22-2020 End: 09-27-2023 take 1 tablet by mouth at bedtime Zolpidem (Ambien) 10 mg tablet Discontinued 10 mg PO AT BEDTIME December 22, 2020 1:00am September 27, 2023 3:07pm Start: 11-06-2018 End: 02-24-2019 take 1 tablet by mouth at bedtime Zolpidem (Ambien) 10 mg tablet Discontinued 10 mg PO AT BEDTIME November 06, 2018 1:00am February 24, 2019 3:37pm Problems Active Problems Problem Classification Problem Date Documented Da te Episodic/Chronic Acute bronchitis (4 sources) Acute bronchitis; Translations: [Acute bronchitis, unspecified] 09-28-2023 Episodic Adjustment disorders (6 sources) Reactive depression (situational); Translations: [Adjustment disorder with depressed mood] 11-28-2022 Chronic Conditions associated with dizziness or vertigo (7 sources) Benign paroxysmal positional vertigo; Translations: [Benign paroxysmal vertigo, unspecified ear] 12-28-2020 Episodic Disorders of lipid metabolism (7 sources) Hyperlipidemia; Translations: [Hyperlipidemia, unspecified] 12-28-2020 Chronic E Codes: Fall (3 sources) Fall on same level; Translations: [Fall on same level, unspecified, initial encounter] Episodic Fracture of lower limb (1 source) Closed fracture of lateral malleolus; Translations: [Displaced fracture of lateral malleolus of right fibula, initial encounter for closed fracture] Episodic Gastritis and duodenitis (6 sources) Bile-induced gastritis; Translations: [Other gastritis without bleeding] 01-03-2021 Episodic Headache; including migraine (2 sources) Headache; Translations: [Daily headache] Episodic Immunizations and screening for infectious disease (2 sources) Encounter for immunization; Translations: [Need for prophylactic vaccination and inoculation against influenza] Episodic Osteoarthritis (9 sources) Arthritis; Translations: [Unspecified osteoarthritis, unspecified site] Onset: 03-23-2025 01-21-2018 Chronic Osteoporosis (2 sources) Age-related osteoporosis without current pathological fracture; Translations: [Age-related osteoporosis without current pathological fracture] Onset: 03-23-2025 Chronic Other and unspecified benign neoplasm (2 sources) Melanocytic nevi, unspecified; Translations: [Benign neoplasm of skin, site unspecified] Episodic Other bone disease and musculoskeletal deformities (7 sources) Osteopenia; Translations: [Other specified disorders of bone density and structure, unspecified site] 01-21-2018 Episodic Other bone disease and musculoskeletal deformities (1 source) Other specified disorders of bone density and structure, unspecified site; Translations: [Disorder of bone and cartilage, unspecified] 11-28-2022 Episodic Other infections; including parasitic (5 sources) Late effects of other and unspecified infectious and parasitic diseases; 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-2021 Chronic Other screening for suspected conditions (not mental disorders or infectious disease) (1 source) Encounter for screening mammogram for malignant neoplasm of breast; Translations: [Encounter for screening mammogram for malignant neoplasm of breast] Onset: 04-19-2025 Episodic Other upper respiratory infections (2 sources) Sinusitis; Translations: [Chronic sinusitis, unspecified] 09-18-2024 Chronic Other upper respiratory infections (2 sources) Acute sinusitis; Translations: [Acute sinusitis, unspecified] 09-18-2024 Episodic Residual codes; unclassified (5 sources) History of clinical finding in subject; Translations: [Personal history of other specified conditions] 11-06-2018 Episodic Residual codes; unclassified (1 source) Asymptomatic menopausal state; Translations: [Asymptomatic menopausal state] Onset: 04-15-2025 Episodic Retinal detachments; defects; vascular occlusion; and retinopathy (2 sources) Degenerative disorder of macula ; Translations: [Unspecified macular degeneration] 03-24-2025 Chronic Unclassified (1 source) Low back pain, unspecified; Translations: [Low back pain, unspecified] Onset: 03-23-2025 Past or Other Problems Problem Classification Problem Date Documented Da te Episodic/Chronic Spondylosis; intervertebral disc disorders; other back problems (3 sources) Low back pain; Translations: [Lumbar back pain] Onset: 06-29-2024 09-18-2024 Episodic Unclassified (5 sources) History of normal colonoscopy 05-18-2022 Comment on above: Has had 2 ( 2002 ,16 04) Results Test Name Value Interpretation Reference Range Facility Breast imaging reportOrdered By: Brooke Farmer on 04-13-2025 Study report [facility] Imaging Services [address] [place] [address] SCRN MAMM (CAD)W/TAYLER BILAT MR#: [id number] Acct: [id number] Name: DARA QUESADA Rep #: [id number] : 1945 F 80 From: Steven Blum MD PCP: Dr. Keyonna Gonzalez DO Status: RE G CLI Study:SCRN MAMM (CAD)W/TAYLER BILAT Date of Exa m: 04/13/25 Exam# [id number] Ordering Dr: Do teresa Gonzalez DO EXAM: SCRN MAMM (CAD)W/TAYLER BILAT DATE: 04/13/2025 CLINICAL HISTORY: F, Age 80 y/o , SCREENING BREAST CANCER RISK ASSESSMENT: Na TECHNIQUE: Bilateral screening digital breast tomosynthesis with 2D and 3D images. Computeraided detection. COMPARISON: Prior exam(s) were compared FINDINGS: TISSUE DENSITY: The breast tissue is heterogeneously dense, which may obscure small masses. Bilateral Breast Mammographic Findings: No suspicious masses, calcifications or other abnormalities are identified. BI/SCRN MAMM (CAD)W/TAYLER BILAT IMPRESSION: No mammographic evidence of malignancy in either breast. OVERALL FINAL ASSESSMENT BI-RADS 1: NEGATIVE. RECOMMEND ANNUAL MAMMOGRAPHIC SCREENING. RECOMMENDATION: Routine annual follow-up in 1 Year A letter with findings and recommendations will be mailed to the patient. Reading Location: [id number] CC: Dr. Keyonna Gonzalez DO ~ Type Cutter: Signed [facility] SCRN MAMM (CAD)W/TAYLER BILATo n 04-13-2025 SCRN MAMM (CAD)W/TAYLER BILAT [facility] Imaging Services [address] [place], [place] [id number] SCRN MAMM (CAD)W/TAYLER BILAT MR#: [id number] Acct: [id number] Name: DARA QUESADA Rep #: [id number] : 1945 F 80 From: Brooke Steele i, MD PCP: Dr. Keyonna Gonzalez DO Status: REG CLI Study: SCRN MAMM (CAD)W/TAYLER BILAT Date of Exam: 03/28 05/21 Exam# [id number] Ordering Dr: Keyonna Gonzalez DO EXAM: SCRN MAMM (CAD)W/TAYLER BILAT DATE: 04/13/2025 CLINICAL HISTORY: F, Age 80 y/o , SCREENING BREAST CANCER RISK ASSESSMENT: Na TECHNIQUE: Bilateral screening digital breast tomosynthesis with 2D and 3D images. Computer aided detection. COMPARISON: Prior exam(s) were compared FINDINGS: TISSUE DENSITY: The breast tissue is heterogeneously dense, which may obscure small masses. Bilateral Breast Mammographic Findings: No suspicious masses, calcifications or other abnormalities are identified. BI/SCRN MAMM (CAD)W/TAYLER BILAT IMPRESSION: No mammographic evidence of malignancy in either breast. OVERALL FINAL ASSESSMENT BI-RADS 1: NEGATIVE. RECOMMEND ANNUAL MAMMOGRAPHIC SCREENING. RECOMMENDATION: Routine annual follow-up in 1 Year A letter with findings and recommendations will be mailed to the patient. Reading Location: [facility] CC: Dr. Keyonna Gonzalez DO Type Cutter: Signed Normal [facility] Internal Medicine Office Vis iton 03-23-2025 Internal Medicine Office Visit [facility] [place] [address] OFFICE VISIT Date of Service: 03/23/25 MR#: [id number] Acct: [id number] Name: DARA QUESADA Rep #: [id number] : 1945 Provider: Dr. Keyonna gamboa, DO Age/Sex: 80/F Location: [facility] [place] Status: Signed Intake Vital Signs 09/18/24 16:04 03/23/25 16:15 Height 5 ft 6 in 5 ft 6 in Weight: 167 lb 6 oz 166 lb 4 oz BMI 27.0 26.8 BP 126/80 H 118/78 Blood Pressure Location Lt brachial Rt brachial Position Sitting Sitting Respiration 18 16 Pulse 87 91 Pulse Source Monitor Monitor Temp 98.4 F 96.7 F L Temp Source Oral Temporal Pulse Oximetry (%) 97 95 Oxygen Delivery Method room air room air Intake Visit Reasons: fu Chief Complaint: fu Pediatric Genetic Counselor Required: No Accompanied by: Self Is patient in pain?: No Allergies aspirin Allergy (Severe, Verified 03/23/25 16:10) Stomach Pain atorvastatin (From Lipitor) Allergy (Severe, Verified 03/23/25 16:10) Joint Pain chlorpheniramine (From Isoclor) Allergy (Severe, Verified 03/23/25 16:10) Heart Races codeine Allergy (Severe, Verified 03/23/25 16:10) Heart Races esomeprazole (From Nexium) Allergy (Severe, Verified 03/23/25 16:10) Joint Pain guaifenesin (From Isoclor) Allergy (Severe, Verified 03/23/25 16:10) Heart Races ibuprofen (From Motrin) Allergy (Severe, Verified 03/23/25 16:10) Heart Races morphine Allergy (Severe, Verified 03/23/25 16:10) Rash naproxen (From Naprosyn) Allergy (Severe, Verified 03/23/25 16:10) Stomach Pain propoxyphene (From Darvon) Allergy (Severe, Verified 03/23/25 16:10) Other pseudoephedrine (From Isoclor) Allergy (Severe, Verified 03/23/25 16:10) Heart Races sulindac (From Clinoril) Allergy (Severe, Verified 03/23/25 16:10) Rash Penicillins Allergy (Intermediate, Verified 03/23/25 16:10) Rash Sulfa (Sulfonamide Antibiotics) Allergy (Intermediate, Verified 03/23/25 16:10) Rash cephalexin (From Keflex) Adverse Reaction (Severe, Verified 03/23/25 16:10) Other prednisone Adverse Reaction (Severe, Verified 03/23/25 16:10) stomach pain Medications ???Medication ???Instructions ???Recorded ???Confirmed ???Type multivitamin (Multiple Vitamins 1 tab PO QAM 01/21/18 03/23/25 His tory tablet) cholecalciferol (vitamin D3) 125 125 mcg PO DAILY 06/29/24 03/23/25 History mcg (5,000 unit) capsule tizanidine 2 mg capsule 1 mg PO Q8H PRN 06/29/24 03/23/25 History zinc gluconate 100 mg tablet PO 06/29/24 03/23/25 History benzonatate 100 mg capsule 200 mg (2 x 100 mg) PO TID PRN 03/23/25 Rx cough #30 caps aflibercept 2 mg/0.05 mL 2 mg intravitreal Q6W 09/18/24 History intravitreal solution for injection (Eylea) promethazine 50 mg tablet 50 mg PO TID PRN motion sickness 1 11/18/23 03/23/25 Rx #30 tabs celecoxib 200 mg capsule 200 mg PO DAILY #30 caps 03/16/25 03/23/25 Rx alendronate 70 mg tablet (Fosamax) 70 mg PO QWEEK #12 tabs 03/18/25 03/23/25 Rx citalopram 20 mg tablet 20 mg PO DAILY #90 tabs 03/23/25 0 03/23/25 Rx Have you fallen in the past year?: No PFSH Medical History Macular degeneration Situational depression Acute bronchitis Acute sinusitis Lumbar pain Sinus infection Vertigo Cataract Hyperlipemia Osteopenia Arthritis Surgical History History of cholecystectomy History of back surgery History of normal colonoscopy History of right knee surgery History of oophorectomy Family History Mother Arthritis Anxiety Heart disease Hypertension Hyperlipidemia CVA (cerebral vascular accident) Stomach ulcer Brother Cancer Stomach ulcer Social History Smoking Status: Former smoker alcohol intake: current alcohol intake frequency: a few times a week substance use type: does not use what type of physical activity do you participate in: none HPI HPI Chief Complaint: fu Details: DARA QUESADA, is a 80 F who presents to the office today for follow-up exam. She is having some trouble with loose stools and excessive gas. She has significant macular degeneration and is getting injections for that but she still has a lot of difficulty with her eyesight and especially with depth perception. ROS Const Constitutional: No body ache, excessive sweating, fatigue, fever(s), frequent falls, headache(s), snoring, weakness, weight change, sleep problems or change in appetite Eyes Eyes: No blurry vision, change in vision, eye pain or Light sensitivity ENT ENT: No abnormal hearing, ear or mastoid pain, tinnitus, nasal congestion, headache(s), neck pain or sore throat (more content not included)... Normal [facility] Urgent Care Visit Reporton 1 11-18-2023 Urgent Care Visit Report [facility] [address], [address] [place] [address] OFFICE VISIT Date of Service: 09/18/24 MR#: [id number] Acct: [id number] Name: DARA QUESADA Rep #: [id number] : 1945 Provider: BINDU Antonio Age/Sex: 79/F Location: [facility] [place] Status: Signed Intake Vital Signs 12/03/23 09:53 09/18/24 16:04 Height 5 ft 5.5 in 5 ft 6 in Weight: 167 lb 6 oz BMI 27.0 BP 126/80 H Blood Pressure Location Lt brachial Position Sitting Respiration 18 Pulse 87 Pulse Source Monitor Temp 98.4 F Temp Source Oral Pulse Oximetry (%) 97 Oxygen Delivery Method room air Intake Visit Reasons: DIZZY, EAR PAIN , HEADACHE Chief Complaint: Vertigo/headache Pediatric Genetic Counselor Required: No Is patient in pain?: Yes Allergies aspirin Allergy (Severe, Verified 09/18/24 16:06) Stomach Pain atorvastatin (From Lipitor) Allergy (Severe, Verified 09/18/24 16:06) Joint Pain chlorpheniramine (From Isoclor) Allergy (Severe, Verified 09/18/24 16:06) Heart Races codeine Allergy (Severe, Verified 09/18/24 16:06) Heart Races esomeprazole (From Nexium) Allergy (Severe, Verified 09/18/24 16:06) Joint Pain guaifenesin (From Isoclor) Allergy (Severe, Verified 09/18/24 16:06) Heart Races ibuprofen (From Motrin) Allergy (Severe, Verified 09/18/24 16:06) Heart Races morphine Allergy (Severe, Verified 09/18/24 16:06) Rash naproxen (From Naprosyn) Allergy (Severe, Verified 09/18/24 16:06) Stomach Pain propoxyphene (From Darvon) Allergy (Severe, Verified 09/18/24 16:06) Other pseudoephedrine (From Isoclor) Allergy (Severe, Verified 09/18/24 16:06) Heart Races sulindac (From Clinoril) Allergy (Severe, Verified 09/18/24 16:06) Rash Penicillins Allergy (Intermediate, Verified 09/18/24 16:06) Rash Sulfa (Sulfonamide Antibiotics) Allergy (Intermediate, Verified 09/18/24 16:06) Rash cephalexin (From Keflex) Adverse Reaction (Severe, Verified 09/18/24 16:06) Other prednisone Adverse Reaction (Severe, Verified 09/18/24 16:06) stomach pain Medications ???Medication ???Instructions ???Recorded ???Confirmed ???Type multivitamin (Multiple Vitamins 1 tab PO QAM 01/21/18 09/18/24 History tablet) alendronate 70 mg tablet (Fosamax) 70 mg PO QWEEK #12 tabs 12/03/23 09/18/24 Rx citalopram 20 mg tablet 20 mg PO DAILY #90 tabs 12/03/23 09/18/24 Rx celecoxib 200 mg capsule 200 mg PO DAILY #30 caps 03/12/24 09/18/24 Rx cholecalciferol (vitamin D3) 125 125 mcg PO DAILY 06/29/24 09/18/24 History mcg (5,000 unit) capsule tizanidine 2 mg capsule 1 mg PO Q8H PRN 06/29/24 09/18/24 History zinc gluconate 100 mg tablet PO 06/29/24 09/18/24 History benzonatate 100 mg capsule 200 mg (2 x 100 mg) PO TID PRN 07/27/24 09/18/24 Rx cough #30 caps aflibercept 2 mg/0.05 mL 2 mg intravitreal Q6W 09/18/24 09/18/24 History intravitreal solution for injection (Eylea) doxycycline monohydrate 100 mg 100 mg PO BID 10 days #20 caps 09/18/24 09/18/24 Rx capsule promethazine 50 mg tablet 50 mg PO TID PRN motion sickness 09/18/24 09/18/24 Rx #30 tabs Have you fallen in the past year?: Yes Nurse's Note: Headache x1 1/2 weeks and became dizzy upon turning in bed two nights ago. Has tried exercises that was previously taught in vestibular training but has not alleviated vertigo. Previously seen ENT for and attributed vertigo at that time to an infection. [facility] Medical History (Updated 09/18/24 @ 17:18 by Gregorio RUANO, PA) Macular degeneration Situational depression Acute bronchitis Acute sinusitis Lumbar pain Sinus infection Vertigo Cataract Hyperlipemia Osteopenia Arthritis Surgical History History of cholecystectomy History of back surgery History of normal colonoscopy History of right knee surgery History of oophorectomy Family History Mother Arthritis Anxiety Heart disease Hypertension Hyperlipidemia CVA (cerebral vascular accident) Stomach ulcer Brother Cancer Stomach ulcer Social History Smoking Status: Former smoker alcohol intake: current alcohol intake frequency: a few times a week substance use type: does not use what type of physical activity do you participate in: none HPI HPI Chief Complaint: Vertigo/headache Details: DARA QUESADA, is a 79 F who presents to the office today for complaint of sinus congestion, headache and dizziness. Patient states that she started with the sinus congestion and headache 1 week ago with a dizziness over the past 2 days. Patient does state having a history of vertigo with similar symptoms. She denies syncopal or near syncopal episodes. No vomiting or diarrhea. No feeling of worst headache (more content not included)... Normal [facility] Urgent Care Visit Reporton 0 07-27-2024 Urgent Care Visit Report [facility] [address], [address] [place] [address] OFFICE VISIT Date of Service: 07/27/24 MR#: [id number] Acct: [id number] Name: DARA QUESADA Rep #: [id number] : 1945 Provider: BINDU Antonio Age/Sex: 79/F Location: [facility] [place] Status: Signed Intake Vital Signs 12/03/23 09:53 07/27/24 16:30 Height 5 ft 5.5 in BP 126/82 H Blood Pressure Location Lt brachial Position Sitting Respiration 16 Pulse 82 Pulse Source NIBP Temp 98.4 F Temp Source Temporal Pulse Oximetry (%) 95 Oxygen Delivery Method room air Intake Visit Reasons: COUGH/R EAR COMPLAINT Chief Complaint: cough, right ear pain, face pain Pediatric Genetic Counselor Required: No Is patient in pain?: Yes Allergies aspirin Allergy (Severe, Verified 07/27/24 16:30) Stomach Pain atorvastatin (From Lipitor) Allergy (Severe, Verified 07/27/24 16:30) Joint Pain chlorpheniramine (From Isoclor) Allergy (Severe, Verified 07/27/24 16:30) Heart Races codeine Allergy (Severe, Verified 07/27/24 16:30) Heart Races esomeprazole (From Nexium) Allergy (Severe, Verified 07/27/24 16:30) Joint Pain guaifenesin (From Isoclor) Allergy (Severe, Verified 07/27/24 16:30) Heart Races ibuprofen (From Motrin) Allergy (Severe, Verified 07/27/24 16:30) Heart Races morphine Allergy (Severe, Verified 07/27/24 16:30) Rash naproxen (From Naprosyn) Allergy (Severe, Verified 07/27/24 16:30) Stomach Pain propoxyphene (From Darvon) Allergy (Severe, Verified 07/27/24 16:30) Other pseudoephedrine (From Isoclor) Allergy (Severe, Verified 07/27/24 16:30) Heart Races sulindac (From Clinoril) Allergy (Severe, Verified 07/27/24 16:30) Rash Penicillins Allergy (Intermediate, Verified 07/27/24 16:30) Rash Sulfa (Sulfonamide Antibiotics) Allergy (Intermediate, Verified 07/27/24 16:30) Rash cephalexin (From Keflex) Adverse Reaction (Severe, Verified 07/27/24 16:30) Other prednisone Adverse Reaction (Severe, Verified 07/27/24 16:30) stomach pain Is last menstrual period known: No Post menopausal: Yes Patient : No Have you fallen in the past year?: No Nurse's Note: cough, right ear pain, face pain x 1 week. finished Doxy for cough. states greatly improved but persists. decreased mucus since ATB. cannot take steroid due to severe abd pain PFSH Medical History Cataract Hyperlipemia Osteopenia Arthritis Surgical History History of cholecystectomy History of back surgery History of normal colonoscopy History of right knee surgery History of oophorectomy Family History Mother Arthritis Anxiety Heart disease Hypertension Hyperlipidemia CVA (cerebral vascular accident) Stomach ulcer Brother Cancer Stomach ulcer Social History Smoking Status: Former smoker alcohol intake: current alcohol intake frequency: a few times a week substance use type: does not use what type of physical activity do you participate in: none HPI HPI Chief Complaint: cough, right ear pain, face pain Details: DARA QUESADA, is a 79 F who presents to the office today for complaint of ongoing cough. Patient states that she also has slight right ear pain and sinus pressure. Patient was here recently and placed on doxycycline however states that her cough has not improved. She states that her other symptoms of fatigue, body aches have improved however the sinus pain and mucus production have not. She does state that she was unable to take the steroid as prescribed due to abdominal discomfort. She denies any recent fever, chills or sweats. No nausea, vomiting or diarrhea. No other associated symptoms or alleviating/aggravat ing factors. ROS Const Constitutional: Positive for other (ROS negative x6 except what was placed in HPI) Exam Const General: cooperative and healthy appearing [facility] Head: normal to inspection Ears: hearing grossly normal bilaterally, TM's normal bilaterally and EAC's normal Nose: nasal discharge purulent Face and sinus: sinus tenderness frontal and maxillary Mouth: oral mucosae normal Throat: abnormal tonsil bilaterally erythema and hypertrophy 1+ and postnasal drainage Resp Effort Inspection: normal respiratory effort Auscultation: Bilateral: Clear to Auscultation Cardio Rate: regular rate Neuro General: patient alert and CN's II-XI intact bilaterally Psych Appearance: grossly normal Mental Status: mental status grossly normal Results POC SARS AG POC SARS AG Positive Last Edit by Margie Oneill on 07/27/24 16:37 Coding Level of Care Code Off vis,est,level 3 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 Normal [facility] Urgent Care Visit Reporton 0 07-18-2024 Urgent Care Visit Report [facility] [address], [address] [place] [address] OFFICE VISIT Date of Service: 07/18/24 MR#: [id number] Acct: [id number] Name: DARA QUESADA Rep #: [id number] : 1945 Provider: LASHAWN Pollock Age/Sex: 79/F Location: [facility] [place] Status: Signed Intake Vital Signs 12/03/23 09:53 07/18/24 12:12 Height 5 ft 5.5 in BP 132/80 H Blood Pressure Location Lt brachial Position Sitting Respiration 18 Pulse 88 Pulse Source NIBP Temp 98.2 F Temp Source Temporal Pulse Oximetry (%) 96 Oxygen Delivery Method room air Intake Visit Reasons: Cough Chief Complaint: cough, STEEL, drainage, yellow mucus Pediatric Genetic Counselor Required: No Is patient in pain?: No Allergies aspirin Allergy (Severe, Verified 07/18/24 12:29) Stomach Pain atorvastatin (From Lipitor) Allergy (Severe, Verified 07/18/24 12:29) Joint Pain chlorpheniramine (From Isoclor) Allergy (Severe, Verified 07/18/24 12:29) Heart Races codeine Allergy (Severe, Verified 07/18/24 12:29) Heart Races esomeprazole (From Nexium) Allergy (Severe, Verified 07/18/24 12:29) Joint Pain guaifenesin (From Isoclor) Allergy (Severe, Verified 07/18/24 12:29) Heart Races ibuprofen (From Motrin) Allergy (Severe, Verified 07/18/24 12:29) Heart Races morphine Allergy (Severe, Verified 07/18/24 12:29) Rash naproxen (From Naprosyn) Allergy (Severe, Verified 07/18/24 12:29) Stomach Pain propoxyphene (From Darvon) Allergy (Severe, Verified 07/18/24 12:29) Other pseudoephedrine (From Isoclor) Allergy (Severe, Verified 07/18/24 12:29) Heart Races sulindac (From Clinoril) Allergy (Severe, Verified 07/18/24 12:29) Rash Penicillins Allergy (Intermediate, Verified 07/18/24 12:29) Rash Sulfa (Sulfonamide Antibiotics) Allergy (Intermediate, Verified 07/18/24 12:29) Rash cephalexin (From Keflex) Adverse Reaction (Severe, Verified 07/18/24 12:29) Other prednisone Adverse Reaction (Severe, Verified 07/18/24 12:29) stomach pain Medications ???Medication ???Instructions ???Recorded ???Confirmed ???Type multivitamin (Multiple Vitamins 1 tab PO QAM 01/21/18 06/29/24 History tablet) alendronate 70 mg tablet (Fosamax) 70 mg PO QWEEK #12 tabs 12/03/23 06/29/24 Rx citalopram 20 mg tablet 20 mg PO DAILY #90 tabs 12/03/23 06/29/24 Rx celecoxib 200 mg capsule 200 mg PO DAILY #30 caps 03/12/24 06/29/24 Rx cholecalciferol (vitamin D3) 125 125 mcg PO DAILY 06/29/24 06/29/24 History mcg (5,000 unit) capsule tizanidine 2 mg capsule 1 mg PO Q8H PRN 06/29/24 06/29/24 History zinc gluconate 100 mg tablet PO 06/29/24 06/29/24 History doxycycline monohydrate 100 mg 100 mg PO BID 7 days #14 caps 07/18/24 07/18/24 Rx capsule Is last menstrual period known: No Post menopausal: Yes Patient : No Have you fallen in the past year?: No Nurse's Note: cough, STEEL, drainage, yellow mucus x 9 days. denies fever PFSH Medical History Cataract Hyperlipemia Osteopenia Arthritis Surgical History History of cholecystectomy History of back surgery History of normal colonoscopy History of right knee surgery History of oophorectomy Family History Mother Arthritis Anxiety Heart disease Hypertension Hyperlipidemia CVA (cerebral vascular accident) Stomach ulcer Brother Cancer Stomach ulcer Social History Smoking Status: Former smoker alcohol intake: current alcohol intake frequency: a few times a week substance use type: does not use what type of physical activity do you participate in: none HPI HPI Chief Complaint: cough, STEEL, drainage, yellow mucus Details: DARA QUESADA, is a 79 F who presents to the office today for cough -recent travel to [place] last wk -sx started 1 wk ago on -cough wet and dry- phlegm yellow to green -ears feel clogged, no runny nose or congestion -headache -denies sob, cp or myalgias -no fever or chills -tried so far Nyquil, benadryl, nightime and daytime gel caps -lots of water -tx prednisone- day for back spasms ROS Const Constitutional: Positive for other (ROS negative x6 except what was placed in HPI) Exam Const General: cooperative, comfortable and no acute distress Orientation: alert, awake and oriented x3 HENNJ Head: normal to inspection and normocephalic Ears: hearing grossly normal bilaterally, external ears normal and TM's normal bilaterally Nose: external nose normal and other (+ congestion and rhinorrhea. Mild erythema and swelling) Face and sinus: normal facial exam, face symmetric and sinus tenderness maxillary Mouth: oral mucosae normal, li (more content not included)... Normal [facility] Office Visit Reporton 2023 Office Visit Report [facility] [address] [place] [address] OFFICE VISIT Date of Service: 06/29/24 MR#: [id number] Acct: [id number] Patient: DARA QUESADA Rep #: [id number] : 1945 Provider: BINDU Carbajal Age/Sex: 79/F Location: [facility] [place] Status: Signed Intake Vital Signs 12/03/23 09:53 06/29/24 13:20 Height 5 ft 5.5 in BP 138/72 H Blood Pressure Location Lt brachial Position Sitting Respiration 17 Pulse 53 L Pulse Source NIBP Temp 98.7 F Temp Source Temporal Pulse Oximetry (%) 98 Oxygen Delivery Method room air Intake Visit Reasons: R SIDE BACK PAIN/MUSCLE TAQUERIA Chief Complaint: right low back pain Pediatric Genetic Counselor Required: No Is patient in pain?: Yes Allergies aspirin Allergy (Severe, Verified 06/29/24 13:20) Stomach Pain atorvastatin (From Lipitor) Allergy (Severe, Verified 06/29/24 13:20) Joint Pain chlorpheniramine (From Isoclor) Allergy (Severe, Verified 06/29/24 13:20) Heart Races codeine Allergy (Severe, Verified 06/29/24 13:20) Heart Races esomeprazole (From Nexium) Allergy (Severe, Verified 06/29/24 13:20) Joint Pain guaifenesin (From Isoclor) Allergy (Severe, Verified 06/29/24 13:20) Heart Races ibuprofen (From Motrin) Allergy (Severe, Verified 06/29/24 13:20) Heart Races morphine Allergy (Severe, Verified 06/29/24 13:20) Rash naproxen (From Naprosyn) Allergy (Severe, Verified 06/29/24 13:20) Stomach Pain prednisone Allergy (Severe, Verified 06/29/24 13:20) stomach pain propoxyphene (From Darvon) Allergy (Severe, Verified 06/29/24 13:20) Other pseudoephedrine (From Isoclor) Allergy (Severe, Verified 06/29/24 13:20) Heart Races sulindac (From Clinoril) Allergy (Severe, Verified 06/29/24 13:20) Rash Penicillins Allergy (Intermediate, Verified 06/29/24 13:20) Rash Sulfa (Sulfonamide Antibiotics) Allergy (Intermediate, Verified 06/29/24 13:20) Rash cephalexin (From Keflex) Adverse Reaction (Severe, Verified 06/29/24 13:20) Other Medications ???Medication ???Instructions ???Recorded ???Confirmed ???Type multivitamin (Multiple Vitamins 1 tab PO QAM 01/21/18 06/29/24 History tablet) alendronate 70 mg tablet (Fosamax) 70 mg PO QWEEK #12 tabs 12/03/23 06/29/24 Rx citalopram 20 mg tablet 20 mg PO DAILY #90 tabs 12/03/23 06/29/24 Rx celecoxib 200 mg capsule 200 mg PO DAILY #30 caps 03/12/24 06/29/24 Rx cholecalciferol (vitamin D3) 125 125 mcg PO DAILY 06/29/24 06/29/24 History mcg (5,000 unit) capsule prednisone 10 mg tablet 10 mg PO .COMPLEX 12 days #30 tabs 06/29/24 06/29/24 Rx tizanidine 2 mg capsule 1 mg PO Q8H PRN 06/29/24 06/29/24 History zinc gluconate 100 mg tablet PO 06/29/24 06/29/24 History Is last menstrual period known: No Post menopausal: Yes Patient : No Have you fallen in the past year?: No Nurse's Note: right low back pain x 4 days worsening. hx back issues, has tried her typical regimen without relief. has been working in [employer] beds x 4 days per . denies change in B/B, denies radiation into buttock/legs PFSH Medical History Cataract Hyperlipemia Osteopenia Arthritis Surgical History History of cholecystectomy History of back surgery History of normal colonoscopy History of right knee surgery History of oophorectomy Family History Mother Arthritis Anxiety Heart disease Hypertension Hyperlipidemia CVA (cerebral vascular accident) Stomach ulcer Brother Cancer Stomach ulcer Social History Smoking Status: Former smoker alcohol intake: current alcohol intake frequency: a few times a week substance use type: does not use what type of physical activity do you participate in: none HPI HPI Chief Complaint: right low back pain Details: DARA QUESADA, is a 79 F who presents to the office today for right low back pain that is spasming for approximately 1 week. Patient has been outside doing yard work and back pain has worsened. She thinks she pulled something while moving a piece of furniture a few days ago. She has tried [id number] medication without any relief. She has been using a TENS unit without any relief. ROS Const Constitutional: Positive for other (ROS negative x 6 except what is described above) Exam Const General: cooperative, no acute distress and well developed Orientation: alert, awake and oriented x3 HENMT Head: normocephalic and atraumatic Mouth: moist mucous membranes Eyes General: appearance normal, both eyes and all related structures Conjunctivae: conjunctivae normal Pupils: PERRL EOM: EOM intact bilaterally Neck Neck: normal visual inspection and no lymphadenopathy (more content not included)... Normal [facility] Absolute lymphocyte countOrd ered By: Keyonna Gonzalez on 12-03-2023 Lymphocytes Auto (Unsp spec) [#/Vol] 2.04 10*3/uL 0.83-4.51 [facility] Automated lymphocyte count a s percentage of total leukocytesOrdered By: Keyonna Gonzalez on 12-03-2023 Lymphocytes/100 WBC Auto (Unsp spec) 36.8 % 19-41 [facility] Basophil percentageOrdered B y: Keyonna Gonzalez on 12-03-2023 Basophils/100 WBC (Bld) 0.9 % 0-1 [facility] Bilirubin [Mass/Vol] 0.60 mg/dL 0.20-1.00 [facility] Comment on above: For patients on eltr ombopag therapy, use of Dimension [place] TBIL is not recommended. Chloride [Moles/Vol] 105 mmol/L 98-107 [facility] Eosinophils/100 WBC (Bld) 2.5 % 0-5 [facility] Glucose [Mass/Vol] 99 mg/dL 74-106 [facility] Hemoglobin (Bld) [Mass/Vol] 12.7 g/dL 12.0-15.0 [facility] Monocytes/100 WBC (Bld) 13.4 % 0-10 [facility] Neutrophils (Bld) [#/Vol] 2.5 10*3/uL 2.0-7.7 [facility] Neutrophils/100 WBC (Bld) 45.9 % 47-70 [facility] Potassium [Moles/Vol] 3.9 mmol/L 3.5-5.1 [facility] Protein [Mass/Vol] 6.7 g/dL 6.4-8.2 [facility] Sodium [Moles/Vol] 135 mmol/L 136-145 [facility] WBC (Bld) [#/Vol] 5.5 10*3/uL 4.4-11.0 [facility] Determination of erythrocyte mean corpuscular volume (MCV)Ordered By: Keyonna Gonzalez on 12-03-2023 MCV (RBC) [Entitic vol] 96.0 fL 81-99 [facility] Erythrocyte distribution wid th ratioOrdered By: Keyonna Gonzalez on 12-03-2023 Erythrocyte distribution width (RBC) [Ratio] 12.5 % 11.6-14.6 [facility] Erythrocyte distribution wid th standard deviationOrdered By: Keyonna Gonzalez on 12-03-2023 Erythrocyte distribution width (RBC) [Entitic vol] 44.4 fL 35.1-43.9 [facility] Hematocrit Auto (Bld) [Volum e fraction]Ordered By: Keyonna Gonzalez on 12-03-2023 Hematocrit (Bld) [Volume fraction] 38.9 % 37-47 [facility] Immature granulocytes/100 WB C Auto (Bld)Ordered By: Keyonna Gonzalez on 12-03-2023 Immature granulocytes/100 WBC (Bld) 0.500 % 0.0-0.9 [facility] Comment on above: IG% - Immature Granu locytes (promyelocytes, myelocytes and metamyelocytes) > 1% indicates that a LEFT SHIFT is Present. Laboratory - Chemistry and C hemistry - challengeOrdered By: Keyonna Gonzalez on 12-03-2023 Albumin/Globulin [Mass ratio] 1.1 {ratio} 0.9-2.4 [facility] ALP [Catalytic activity/Vol] 63 U/L 45-117 [facility] ALT [Catalytic activity/Vol] 21 U/L 13-56 [facility] CO2 [Moles/Vol] 28.0 mmol/L 21.0-32.0 [facility] Globulin (S) [Mass/Vol] 3.2 g/dL 2.2-4.2 [facility] Urea nitrogen/Creatinine [Mass ratio] 20.3 mg/mg 10-20 [facility] Laboratory - Hematology and Cell countsOrdered By: Keyonna Gonzalez on 12-03-2023 MCH (RBC) [Entitic mass] 31.4 pg 27.0-32.0 [facility] MCHC (RBC) [Mass/Vol] 32.6 g/dL 32-36 [facility] Nucleated RBC/100 WBC (Bld) [Ratio] 0 % 0-5 [facility] Platelet mean volume (Bld) [Entitic vol] 10.3 fL 6.2-12.0 [facility] Platelets (Bld) [#/Vol] 256 10*3/uL 150-450 [facility] No Panel InformationOrdered By: Keyonna Gonzalez on 12-03-2023 Estimated GFR (MDRD) Amer 85 mL/min >60 [facility] Comment on above: GFR Calc Estimated GFR (MDRD) Non-Af Amer 70 mL/min >60 [facility] Comment on above: Non- GFR Calc RBC Auto (Bld) [#/Vol]Ordere d By: Keyonna Gonzalez on 12-03-2023 RBC (Bld) [#/Vol] 4.05 10*6/uL 4.2-5.4 [facility] Serum or plasma calcium cam urement (mass/volume)Ordered By: Keyonna Gonzalez on 12-03-2023 Calcium [Mass/Vol] 9.3 mg/dL 8.5-10.1 [facility] Serum or plasma creatinine m easurement (mass/volume)Ordered By: Keyonna Gonzalez on 12-03-2023 Creatinine [Mass/Vol] 0.84 mg/dL 0.55-1.02 [facility] Comment on above: The validity of the calculated GFR & GFRAA in patients over 70 years has not been determined. Clinical correlation is essential. Serum or plasma urea nitroge n measurement (mass/volume)Ordered By: Keyonna Gonzalez on 12-03-2023 Urea nitrogen [Mass/Vol] 17 mg/dL 7-18 [facility] Thin prep Papanicolaou smear with manual screeningOrdered By: Keyonna Gonzalez on 12-03-2023 Thin prep Papanicolaou smear with manual screening 3.5 g/dL 3.2-5.0 [facility] Thin prep Papanicolaou smear with manual screening 14 U/L 15-37 [facility] Thin prep Papanicolaou smear with manual screening 2 5-15 [facility] Absolute lymphocyte countOrd ered By: Dr. Gonzalez on 11-28-2022 Lymphocytes Auto (Unsp spec) [#/Vol] 2.23 10*3/uL 0.83-4.51 [facility] Basophil percentageOrdered B y: Dr. Gonzalez on 11-28-2022 Basophils/100 WBC (Bld) 0.9 % 0-1 [facility] Bilirubin [Mass/Vol] 0.60 mg/dL 0.20-1.00 [facility] Comment on above: For patients on eltr ombopag therapy, use of Dimension [place] TBIL is not recommended. Chloride [Moles/Vol] 107 mmol/L 98-107 [facility] Cholesterol [Mass/Vol] 221 mg/dL <200 [facility] Comment on above: <200 mg/dL Desirable 200-240 mg/dL Borderline >240 mg/dL High Risk Eosinophils/100 WBC (Bld) 2.3 % 0-5 [facility] Glucose [Mass/Vol] 99 mg/dL 74-106 [facility] Neutrophils (Bld) [#/Vol] 2.7 10*3/uL 2.0-7.7 [facility] [facility] Neutrophils/100 WBC (Bld) 47.9 % 47-70 [facility] Potassium [Moles/Vol] 3.9 mmol/L 3.5-5.1 [facility] Protein [Mass/Vol] 6.7 g/dL 6.4-8.2 [facility] Sodium [Moles/Vol] 142 mmol/L 136-145 [facility] Triglyceride [Mass/Vol] 170 mg/dL <199 [facility] Comment on above: The drugs N-Acetylcy steine and Metamizole may falsely depress this assay.Serum Triglycerides Reference Interval Normal <150 mg/dL Borderline high 150 - 199 mg/dL High 200 - 499 mg/dL Very High > or = 500 mg/dL WBC (Bld) [#/Vol] 5.6 10*3/uL 4.4-11.0 [facility] Blood erythrocytes count (nu mber/volume)Ordered By: Dr. Gonzalez on 11-28-2022 RBC (Bld) [#/Vol] 4.05 10*6/uL 4.2-5.4 [facility] Blood hemoglobin measurement (mass/volume)Ordered By: Dr. Gonzalez on 11-28-2022 Hemoglobin (Bld) [Mass/Vol] 13.2 g/dL 12.0-15.0 [facility] Blood lymphocytes/100 leukoc ytesOrdered By: Dr. Gonzalez on 11-28-2022 Lymphocytes/100 WBC (Bld) 39.9 % 19-41 [facility] Blood monocytes/100 leukocyt esOrdered By: Dr. Gonzalez on 11-28-2022 Monocytes/100 WBC (Bld) 8.6 % 0-10 [facility] Blood platelet mean volumeOr dered By: Dr. Gonzlaez on 11-28-2022 Platelet mean volume (Bld) [Entitic vol] 9.6 fL 6.2-12.0 [facility] Determination of erythrocyte mean corpuscular volume (MCV)Ordered By: Dr. Gonzalez on 11-28-2022 MCV (RBC) [Entitic vol] 97.3 fL 81-99 [facility] Hematocrit Auto (Bld) [Volum e fraction]Ordered By: Dr. Gonzalez on 11-28-2022 Hematocrit (Bld) [Volume fraction] 39.4 % 37-47 [facility] Laboratory - Chemistry and C hemistry - challengeOrdered By: Dr. Gonzalez on 11-28-2022 ALP [Catalytic activity/Vol] 68 U/L 45-117 [facility] ALT [Catalytic activity/Vol] 15 U/L 13-56 [facility] CO2 [Moles/Vol] 27.0 mmol/L 21.0-32.0 [facility] Globulin (S) [Mass/Vol] 3.2 g/dL 2.2-4.2 [facility] Urea nitrogen/Creatinine [Mass ratio] 15.1 mg/mg 10-20 [facility] Laboratory - Hematology and Cell countsOrdered By: Dr. Gonzalez on 11-28-2022 Erythrocyte distribution width (RBC) [Entitic vol] 44.0 fL 35.1-43.9 [facility] Erythrocyte distribution width (RBC) [Ratio] 12.3 % 11.6-14.6 [facility] Immature granulocytes/100 WBC (Bld) 0.400 % 0.0-0.9 [facility] Comment on above: IG% - Immature Granu locytes (promyelocytes, myelocytes and metamyelocytes) > 1% indicates that a LEFT SHIFT is Present. MCH (RBC) [Entitic mass] 32.6 pg 27.0-32.0 [facility] Nucleated RBC/100 WBC (Bld) [Ratio] 0 % 0-5 [facility] MCHC Auto (RBC) [Mass/Vol]Or dered By: Dr. Gonzalez on 11-28-2022 MCHC (RBC) [Mass/Vol] 33.5 g/dL 32-36 [facility] No Panel InformationOrdered By: Dr. Gonzalez on 11-28-2022 Estimated GFR (MDRD) Amer 75 mL/min >60 [facility] Comment on above: GFR Calc Estimated GFR (MDRD) Non-Af Amer 62 mL/min >60 [facility] Comment on above: Non- GFR Calc Platelets bldOrdered By: Dr. Gonzalez on 11-28-2022 Platelets (Bld) [#/Vol] 274 10*3/uL 150-450 [facility] Serum or plasma albumin cam urement (mass/volume)Ordered By: Dr. Gonzalez on 11-28-2022 Albumin [Mass/Vol] 3.5 g/dL 3.2-5.0 [facility] Serum or plasma albumin/glob ulin mass ratioOrdered By: Dr. Gonzalez on 11-28-2022 Albumin/Globulin [Mass ratio] 1.1 {ratio} 0.9-2.4 [facility] Serum or plasma calcium cam urement (mass/volume)Ordered By: Dr. Gonzalez on 11-28-2022 Calcium [Mass/Vol] 9.1 mg/dL 8.5-10.1 [facility] Serum or plasma cholesterol in HDL measurement (mass/volume)Ordered By: Dr. Gonzalez on 11-28-2022 Cholesterol in HDL [Mass/Vol] 60 mg/dL >40 [facility] Comment on above: The drugs N-Acetylcy steine and Metamizole may falsely depress this assay. Reference Range HDL <40 mg/dL Low HDL Cholesterol HDL >or= 60 mg/dL High HDL Cholesterol Serum or plasma cholesterol in VLDL measurement (mass/volume)Ordered By: Dr. Gonzalez on 11-28-2022 Cholesterol in VLDL [Mass/Vol] 34 mg/dL 5-40 [facility] Serum or plasma creatinine m easurement (mass/volume)Ordered By: Dr. Gonzalez on 11-28-2022 Creatinine [Mass/Vol] 0.93 mg/dL 0.55-1.02 [facility] Comment on above: The validity of the calculated GFR & GFRAA in patients over 70 years has not been determined. Clinical correlation is essential. Serum or plasma low density lipoprotein (LDL) cholesterol measurement (mass/volume)Ordered By: Dr. Gonzalez on 11-28-2022 Cholesterol in LDL [Mass/Vol] 127 mg/dL 0-130 [facility] Serum or plasma urea nitroge n measurement (mass/volume)Ordered By: Dr. Gonzalez on 11-28-2022 Urea nitrogen [Mass/Vol] 14 mg/dL 7-18 [facility] Thin prep Papanicolaou smear with manual screeningOrdered By: Dr. Gonzalez on 11-28-2022 Thin prep Papanicolaou smear with manual screening 15 U/L 15-37 [facility] Thin prep Papanicolaou smear with manual screening 8 5-15 [facility] Basophil percentageOrdered B y: Araceli Boucher on 10-08-2022 Basophil percentage < 0.9 mg/dL 0.55-1.02 [facility] No Panel InformationOrdered By: Araceli Boucher on 10-08-2022 Bedside Estimated GFR (eGFR) > 60.0000 mL/min >60 [facility] BD BONE DENSITY DEXA AXIAL S KELETONon 10-09-2019 BD BONE DENSITY DEXA AXIAL SKELETON ORIGINAL BONE DENSITOMETRY 10/09/2019 10:40 AM CLINICAL STATEMENT: SCREENING 74 years Female. COMPARISON: None T Score Left Femoral Neck: -1.4 BMD (g/cm2) Left Femoral Neck: 0.697 T Score Left Hip: -1.4 BMD (g/cm2) Left Hip: 0.773 T Score Lumbar Spine L1-L4: na BMD (g/cm2) Lumbar Spine L1-L4: na T Score Right Femoral Neck: na BMD (g/cm2) Right Femoral Neck: na T Score Right Hip: na BMD (g/cm2) Right Hip: na T Score 33% Left Radius: -0.5 BMD (g/cm2) Left 33% Radius: 0.654 T Score 33% Right Radius: na BMD (g/cm2) Right 33% Radius: na COMMENTS: CONCLUSION: The patient is considered osteopenic based on the following: Left femoral neck T score of -1.4. and Left total hip T score of -1.4. and Lumbar spine T score of na. BMD Change from previous Hip: -6.4 % BMD Change from previous Left Radius: -4.6 % *By the World Health Organization standards: Osteopenia is present when the bone mineral density is greater than 1 standard deviation (SD) but less than 2.5 SDs below a young normal sex matched population. Osteoporosis is present when the bone mineral density is equal to or greater than 2.5 SDs below a young normal sex matched population. Interpreted By: Neel Mcnamara Preliminary Report By: Neel Mcnamara Electronically Signed By: Neel Mcnamara Dictated Date: 10/09/2019 12:28:53 PM Prelim Date: 10/09/2019 12:28:53 PM Sign Date: 10/09/2019 12:35:39 PM Ordering Provider:Phoebe Cooper [facility] ([place]) MA MAMMOGRAM SCREENING BILAT ERAL W/TOMOon 10-09-2019 MA MAMMOGRAM SCREENING BILATERAL W/TAYLER ORIGINAL FROM: [facility] [address] [place], [place] [address] PROCEDURE FOR: DARA QUESADA [address] [place] [id number] Home: PID#: [id number] Exam#: [id number] : 1945 Age: 74 TO: PHOEBE CEBALLOS MD [address] [facility] [address] [place] [address] #[id number] BILATERAL DIGITAL SCREENING MAMMOGRAM 3D/2D WITH CAD WITH MEDIOLATERAL OBLIQUE CRANIOCAUDAL: 10/09/2019 Comparison is made to exams dated: 10/03/2016 mammogram and 05/13/2014 mammogram - [facility]. The tissue of both breasts is heterogeneously dense. Current study was also evaluated with a Computer Aided Detection (CAD) system. No significant masses, calcifications, or other findings are seen in either breast. There has been no significant interval change. IMPRESSION: NEGATIVE There is no mammographic evidence of malignancy. A 1 year screening mammogram is recommended.( 020) Carlos Arthur M.D., Afia. tbp/penrad: 9 16:18:41 copy to: KEYONNA GONZALEZ DO, ph: [phone], fax: [phone] [employer] Agent(s): RT LUI (R) (M) (CT), [facility] letter sent: Normal BI-RADS 1&2 Mammogram BI-RADS: 1 Negative Normal [facility] ([place]) Vital Signs Date Time Vital Sign Value Performing Clinician Faci lity 03-23-2025 16:15-0400 Body height 167.[address] Keyonna Gonzalez DO Work Phone: [facility] 03-23-2025 16:15-0400 Body mass index (BMI) [Ratio] 26.8 kg/m2 Dr. Keyonna Gonzalez DO Work Phone: [facility] 03-23-2025 16:15-0400 Body temperature 96.7 [degF] Dr. Keyonna Gonzalez DO Work Phone: [facility] 03-23-2025 16:15-0400 Body weight 75.[address] Keyonna Gonzalez DO Work Phone: [facility] 03-23-2025 16:15-0400 Diastolic blood pressure 78 mm[Hg] Dr. Keyonna Gonzalez DO Work Phone: [facility] 03-23-2025 16:15-0400 Heart rate 91 /min Dr. Keyonna Gonzalez DO Work Phone: [facility] 03-23-2025 16:15-0400 Respiratory rate 16 /min Dr. Keyonna Gonzalez DO Work Phone: [facility] 03-23-2025 16:15-0400 SaO2% (BldA) [Mass fraction] 95 % Dr. Keyonna Gonzalez DO Work Phone: [facility] 03-23-2025 16:15-0400 Systolic blood pressure 118 mm[Hg] Dr. Keyonna Gonzalez DO Work Phone: [facility] 12-03-2023 09:53-0500 Body height 166.[address] Keyonna Gonzalez Work Phone: [facility] 12-03-2023 09:53-0500 Body mass index (BMI) [Ratio] 28.5 kg/m2 Dr. Keyonna Gonzalez Work Phone: [facility] 12-03-2023 09:53-0500 Body temperature 97.9 [degF] Dr. Keyonna Gonzalez Work Phone: [facility] 12-03-2023 09:53-0500 Body weight 78.[address] Keyonna Gonzalez Work Phone: [facility] 12-03-2023 09:53-0500 Diastolic blood pressure 82 mm[Hg] Dr. Keyonna Gonzalez Work Phone: [facility] 12-03-2023 09:53-0500 Heart rate 83 /min Dr. Keyonna Gonzalez Work Phone: [facility] 12-03-2023 09:53-0500 Respiratory rate 16 /min Dr. Keyonna Gonzalez Work Phone: [facility] 12-03-2023 09:53-0500 SaO2% (BldA) [Mass fraction] 98 % Dr. Keyonna Gonzalez Work Phone: [facility] 12-03-2023 09:53-0500 Systolic blood pressure 128 mm[Hg] Dr. Keyonna Gonzalez Work Phone: [facility] 09-27-2023 14:22-0500 Body mass index (BMI) [Ratio] 27.6 kg/m2 Dr. Keyonna Gonzalez Work Phone: [facility] 09-27-2023 14:22-0500 Body temperature 98.6 [degF] Dr. Keyonna Gonzalez Work Phone: [facility] 09-27-2023 14:22-0500 Body weight 76.[address] Keyonna Gonzalez Work Phone: [facility] 09-27-2023 14:22-0500 Diastolic blood pressure 83 mm[Hg] Dr. Keyonna Gonzalez Work Phone: [facility] 09-27-2023 14:22-0500 Heart rate 79 /min Dr. Keyonna Gonzalez Work Phone: [facility] 09-27-2023 14:22-0500 Respiratory rate 16 /min Dr. Keyonna Gonzalez Work Phone: [facility] 09-27-2023 14:22-0500 SaO2% (BldA) [Mass fraction] 94 % Dr. Keyonna Gonzalez Work Phone: [facility] 09-27-2023 14:22-0500 Systolic blood pressure 139 mm[Hg] Dr. Keyonna Gonzalez Work Phone: [facility] 11-28-2022 13:26-0500 Body height 167.[address] Keyonna Gonzalez Work Phone: [facility] 11-28-2022 13:26-0500 Body mass index (BMI) [Ratio] 28 kg/m2 Dr. Keyonna Gonzalez Work Phone: [facility] 11-28-2022 13:26-0500 Body temperature 96.3 [degF] Dr. Keyonna Gonzalez Work Phone: [facility] 11-28-2022 13:26-0500 Body weight 78.[address] Keyonna Gonzalez Work Phone: [facility] 11-28-2022 13:26-0500 Diastolic blood pressure 70 mm[Hg] Dr. Keyonna Gonzalez Work Phone: [facility] 11-28-2022 13:26-0500 Heart rate 86 /min Dr. Keyonna Gonzalez Work Phone: [facility] 11-28-2022 13:26-0500 Respiratory rate 16 /min Dr. Keyonna Gonzalez Work Phone: [facility] 11-28-2022 13:26-0500 SaO2% (BldA) [Mass fraction] 95 % Dr. Keyonna Gonzalez Work Phone: [facility] 11-28-2022 13:26-0500 Systolic blood pressure 110 mm[Hg] Dr. Keyonna Gonzalez Work Phone: [facility] 09-26-2022 12:57-0500 Body height 167.[address] Keyonna Gonzalez Work Phone: [facility] Work Phone: 09-26-2022 12:57-0500 Body mass index (BMI) [Ratio] 28 kg/m2 Dr. Keyonna Gonzalez Work Phone: [facility] 09-26-2022 12:57-0500 Body temperature 96.7 [degF] Dr. Keyonna Gonzalez Work Phone: [facility] 09-26-2022 12:57-0500 Body weight 78.[address] Keyonna Gonzalez Work Phone: [facility] 09-26-2022 12:57-0500 Diastolic blood pressure 92 mm[Hg] Dr. Keyonna Gonzalez Work Phone: [facility] 09-26-2022 12:57-0500 Heart rate 74 /min Dr. Keyonna Gonzalez Work Phone: [facility] 09-26-2022 12:57-0500 Inhaled oxygen flow rate 97 L/min Dr. Keyonna Gonzalez Work Phone: [facility] 09-26-2022 12:57-0500 Respiratory rate 18 /min Dr. Keyonna Gonzalez Work Phone: [facility] 09-26-2022 12:57-0500 SaO2% (BldA) [Mass fraction] 97 % Dr. Keyonna Gonzalez Work Phone: [facility] 09-26-2022 12:57-0500 Systolic blood pressure 134 mm[Hg] Dr. Keyonna Gonzalez Work Phone: [facility] Encounters Encounter Date Encounter Type Care Provider Facility Start: 04-21-2025 ambulatory Keyonna Gonzalez Facilit y:[facility] Start: 04-13-2025 End: 04-13-[address] Keyonna Gonzalez DO Work Phone: [facility] Work Phone: Start: 04-13-2025 End: 04-13-[address] Keyonna Bajwa DO -Outpatient Bone Densitometry Work Phone: Start: 04-13-2025 End: 04-13-2025 ambulatory Keyonna Gonzalez Facility:[facility] Start: 03-23-2025 End: 03-23-[address] Keyonna Bajwa DO -[facility] Work Phone: Start: 03-23-2025 End: 03-23-[address] Keyonna Gonzalez DO Work Phone: [facility] Work Phone: Start: 09-18-2024 End: 09-18-2024 ambulatory Gregorio RUANO Facility:[facility] Start: 07-27-2024 End: 07-27-2024 ambulatory Keyonna Gonzalez Facility:[facility] Start: 07-18-2024 End: 07-18-2024 ambulatory Keyonna Gonzalez Facility:[facility] Start: 06-29-2024 End: 06-29-2024 ambulatory Keyonna Gonzalez Facility:[facility] Start: 01-14-2024 End: 01-14-[address] Keyonna Gonzalez Work Phone: [facility] Work Phone: Start: 01-14-2024 End: 01-14-[address] Keyonna Gonzalez Work Phone: [facility]-Outpatient Breast Imaging Work Phone: Start: 12-03-2023 End: 12-03-[address] Keyonna Gonzalez Work Phone: [facility] Work Phone: Start: 09-27-2023 End: 09-27-[address] Keyonna Gonzalez Work Phone: [facility] Work Phone: Start: 11-28-2022 End: 11-28-[address] Keyonna Gonzalez Work Phone: [facility] Work Phone: Start: 11-28-2022 End: 11-28-[address] Keyonna Gonzalez Work Phone: [facility] Start: 10-08-2022 End: 10-08-[address] Keyonna Gonzalez Work Phone: [facility] Work Phone: Start: 10-08-2022 End: 10-08-[address] Keyonna Gonzalez Work Phone: [facility] Start: 09-26-2022 End: 09-26-[address] Keyonna Gonzalez Work Phone: [facility] Internal Medicine Start: 03-01-2022 End: 04-03-[address] JULIANNE MCKENZIE DO [facility] Procedures Date Procedure Procedure Detail Performing Clinician Start: 04-13-2025 Screening mammography Kilo Gonzalez DO Work Phone: Start: 01-14-2024 Screening mammography Kilo Gonzalez Work Phone: Start: 10-08-[address] Kasia Gonzalez Work Phone: Start: 10-08-2022 CT of head without contrast Dr. Keyonna Gonzalez Work Phone: Plan of Treatment Date Care Activity Detail Author Start: 04-21-2025 DXA Bone [Mass/Area] Bone density [facility] Start: 09-26-2022 Patient referral [facility] Work Phone: CBC W Auto Different ial panel - Blood [facility] Comprehensive metabo lic 2000 panel - Serum or Plasma [facility] DXA Bone [Mass/Area] Bone density [facility] DXA Bone [Mass/Area] Bone density [facility] MG Breast - bilateral Screening [facility] MG Breast - bilateral Screening [facility] Patient referral [facility] Work Phone: Immunizations Immunization Date Immunization Notes Care Provider Fa cility 11-21-2022 Ector (Moderna) Dr. Keyonna Gonzalez Work Phone: [facility] 09-26-2022 influenza, injectabl e, quadrivalent, preservative free Dr. Keyonna Gonzalez Work Phone: [facility] 09-26-2022 influenza, seasonal, injectable Dr. Keyonna Gonzalez Work Phone: [facility] 09-04-2021 Ector (Moderna) Dr. Keyonna Gonzalez Work Phone: [facility] 09-04-2021 influenza, injectabl e, quadrivalent, preservative free Dr. Keyonna Gonzalez Work Phone: [facility] 09-04-2021 influenza, seasonal, injectable Dr. Keyonna Gonzalez Work Phone: [facility] 02-21-2021 Ector (Moderna) Dr. Keyonna Gonzalez Work Phone: [facility] 01-24-2021 Covid (Moderna) Dr. Keyonna Gonzalez Work Phone: [facility] 09-01-2020 influenza, injectabl e, quadrivalent, preservative free Dr. Keyonna Gonzalez Work Phone: [facility] 09-01-2020 influenza, seasonal, injectable Dr. Keyonna Gonzalez Work Phone: [facility] 09-21-2019 influenza, injectabl e, quadrivalent, preservative free Dr. Keyonna Gonzalez Work Phone: [facility] 09-21-2019 influenza, seasonal, injectable Dr. Keyonna Gonzalez Work Phone: [facility] 09-21-2019 pneumococcal polysaccharide vaccine, [address] Keyonna Gonzalez Work Phone: [facility] 08-29-2018 influenza, injectabl e, quadrivalent, preservative free Dr. Keyonna Gonzalez Work Phone: [facility] 08-29-2018 influenza, seasonal, injectable Dr. Keyonna Gonzalez Work Phone: [facility] 08-29-2018 pneumococcal conjuga te vaccine, [address] Keyonna Gonzalez Work Phone: [facility] Payers Date Payer Category Payer Private Health Insurance [facility] [id number] 2024 Self-pay [id number] Medicare MEDICARE PART A B [id number] Unknown [facility] [id number] Unknown [id number] Unknown [id number] Unknown [id number] Unknown [id number] Unknown [id number] Unknown [id number] Unknown [id number] Social History Date Type Detail Facility Tobacco smoking status No Smoking Status Entered [facility] Start: 1945 Sex Assigned At Female A [facility] Start: 09-26-2022 End: 12-03-2023 Tobacco smoking status NCIS Unknown if ever smoked [facility] Start: 12-28-2020 None [facility] Start: 12-28-2020 Spouse/ Signif icant Other [facility] Start: 12-03-2023 Tobacco smoking status NHIS Ex-smoker (finding) [facility] Functional Status Date Assessment Result Facility 03-01-2022 [...] warmth, redness or signs if infection present. [facility] Evaluation note 03-23-2025 Note Date & Type Note Facility 03-23-2025 Evaluation note Diagnosis Onset Date Resolution Macular degeneration of both eyes acute March 23, 2025 4 :05pm Reflux gastritis acute February 4:05pm Arthritis chronic March 23, 2025 4:05pm Hyperlipemia chronic March 23 4:05pm Osteopenia chronic March 23, 2025 4:05pm [facility] Work Phone: Evaluation + Plan note Note Date & Type Note Facility Evaluation + Plan note No data available for this section [facility] Evaluation note Note Date & Type Note Facility Evaluation note Diagnosis Onset Date Change in mole noneactive Influenza vaccine administered noneactive Headache noneactive Fall noneactive [facility] Work Phone: Evaluation note Note Date & Type Note Facility Evaluation note Diagnosis Onset Date Change in mole noneactive Influenza vaccine administered noneactive Headache noneactive Fall noneactive Physical exam, annual acute Situational depression acute Osteopenia chronic [facility] Work Phone: Evaluation note Note Date & Type Note Facility Evaluation note Diagnosis Onset Date Acute bronchitis acute Physical exam, annual acute Situational depression acute Arthritis chronic [facility] Work Phone: Evaluation note Note Date & Type Note Facility Evaluation note Diagnosis Onset Date Resolution Arthritis chronic March 23, 2025 4:05pm Hyperlipemia chronic March 23 4:05pm Osteopenia chronic March 23, 2025 4:05pm [facility] Work Phone: Hospital Discharge instructions Note Date & Type Note Facility Hospital Discharge instructions No data available for this section [facility] Progress note Note Date & Type Note Facility Progress note No data available for this section [facility] Reason for referral (narrative) Note Date & Type Note Facility Reason for referral (narrative) No reason for referral information available [facility] Work Phone: Summary Purpose Family History No Family History Records Found Relationship Condition Age at Onset Recorded Date/T mercy mother Arthritis Unknown Anxiety Unknown Cardiac disease Unknown Hypertension Unknown Hyperlipidemia Unknown Cerebrovascular accident (CVA) Unknown Gastric ulcer Unknown brother Malignant neoplasm Unknown Advance Directives No Advanced Directives Records Found Advance Directive Response Recorded Date/ Time Living Will Yes December 28, 2020 11:50pm Power of Trap Puller Yes December 28 11:50pm Advance Directive Response Recorded Date/ Time Living Will Yes December 29, 2020 12:50am Power of Trap Puller Yes December 29 12:50am Chief Complaint and Reason for Visit Chief Complaint POST FALL HEADACHES FACIAL PAIN HEADACHES Reason for Visit Change in mole Influenza vaccine administered Headache Fall Chief Complaint POST FALL HEADACHES FACIAL PAIN HEADACHES GENERAL CHK UP Reason for Visit Change in mole Influenza vaccine administered Headache Fall Physical exam, annual Situational depression Osteopenia Chief Complaint SORE THROAT, COUGH, HEADACHE MED FU SCREENING Reason for Visit Acute bronchitis Physical exam, annual Situational depression Arthritis Chief Complaint Admit Date fu March 23, 2025 4:05p m Reason for Visit Admit Date Arthritis March 23, 2025 4:05p m Hyperlipemia March 23, 2025 4:05p m Osteopenia March 23, 2025 4:05p m Chief Complaint Admit Date fu March 23, 2025 4:05p m SCREENING OSTEO April 13, 2025 12:5 7pm Reason for Visit Admit Date Macular degeneration of both eyes March 232024 4:05pm Reflux gastritis March 23, 2025 4:05p m Arthritis March 23, 2025 4:05p m Hyperlipemia March 23, 2025 4:05p m Osteopenia March 23, 2025 4:05p m Additional Source Comments INFORMATION SOURCE (unrecogn ized section and content) DATE CREATED AUTHOR 10/13/2019 [facility] ([place]) DATE CREATED AUTHOR AUTHOR'S ORGANIZ ATION 04/21/2025 [facility] Care Team (unrecognized sect ion and content) Team Status: Active Member Role Status Dates Dr. Keyonna Gonzalez , DO Family Provider Active Dr. Keyonna Gonzalez , DO Primary Care Provider Active Team Status: Inactive Member Role Status Dates Dr. Keyonna Gonzalez , DO Primary Care Provider, Referr ing Provider Active BINDU Dao Attending Provider Active Team Status: Inactive Member Role Status Dates Dr. Keyonna Gonzalez , DO Primary Care Pr ovider, Attending Provider, Referring Provider Active Team Status: Inactive Member Role Status Dates Dr. Keyonna Gonzalez , DO Primary Care Provider Active BINDU Dao Attending Provider, Referring Pro vider Active Team Status: Inactive Member Role Status Dates Dr. Keyonna Gonzalez , DO Primary Care Provider, Referr ing Provider Active Gregorio RUANO PA Attending Provider Active Team Status: Inactive Member Role Status Dates Dr. Keyonna Gonzalez DO Primary Care Provider Active Start: March 23, 2025 End: March 23, 2025 Dr. Keyonna Gonzalez DO Attending Provider Active Start: March 23, 2025 End: March 23, 2025 Dr. Keyonna Gonzalez DO Referring Provider Active Start: March 23, 2025 End: March 23, 2025 Team Status: Active Member Role Status Dates Dr. Keyonna Gonzalez DO Primary Care Provider Active Team Status: Inactive Member Role Status Dates Dr. Keyonna Gonzalez DO Primary Care Provider Active Start: April 13, 2025 End: April 13, 2025 Dr. Keyonna Gonzalez DO Attending Provider Active Start: April 13, 2025 End: April 13, 2025 Dr. Keyonna Gonzalez DO Referring Provider Active Start: April 13, 2025 End: April 13, 2025 Goals (unrecognized section and content) Goals may be documented in a n alternate section FOR RECORDS PERTAINING TO PATIENTS WHO ARE [...] BE BASED ON THE PRIMARY CLINICAL RECORDS. [facility] [employer] provides no warranty or guarantee of the accuracy or completeness of information in this document.
== END | disposition home or self-care (01) ==
LOC: OPBD 09:46
PROVIDERS: PCP Family Medicine; Referring Provider Family Medicine; Visit Provider Family Medicine
DX: M81.0 Age-related osteoporosis without current pathological fracture (principal)
CPT/HCPCS: 77080

== ENCOUNTER → 2025-07-12 | Outpatient (CLI) | payer MEDICARE, SELFPAY ==
[2025-07-12 13:20] LABS: Hematocrit 35.3 % (37-47); Hemoglobin 12.2 g/dL (12.0-15.0); Immature Granulocytes Count 0.030 X10^3/uL (0.0-0.0); Mean Corp Hgb Conc 34.6 g/dL (32-36); Mean Corpuscular Volume 96.4 fL (81-99); Mean Platelet Vol. 9.3 fl (6.2-12.0); NRBC Flagged by Analyzer 0 % (0-5); Platelet Count 235 K/mm3 (150-450); RBC Distribution Width CV 14.2 % (11.6-14.6); RBC Distribution Width SD 50.1 fl (35.1-43.9); Red Blood Count 3.66 M/mm3 (4.2-5.4); White Blood Count 5.7 K/mm3 (4.4-11.0)
[2025-07-12 14:02] LABS: AST(SGOT) 13 U/L (<=31); Alanine Aminotransfer ALT/SGPT 11 U/L (<=34); Albumin, Serum 3.8 g/dL (3.4-4.8); Alkaline Phosphatase 63 U/L (35-104); Anion Gap 9 (5-15); BUN 15 mg/dL (4-19); BUN/Creat Ratio 16.1 RATIO (10-20); Calcium,Total 8.9 mg/dL (7.6-11.0); Carbon Dioxide 17.8 mmol/L (21.0-32.0); Chloride 111 mmol/L (98-108); Globulin 2.5 g/dL (2.2-4.2); Glucose 88 mg/dL (70-99); Potassium 3.7 mmol/L (3.3-5.1)
== END | disposition home or self-care (01) ==
LOC: PAVLAB 13:03
PROVIDERS: PCP Family Medicine; Referring Provider Physician Assistant; Visit Provider Physician Assistant
DX: M54.50 Low back pain, unspecified (principal); M19.90 Unspecified osteoarthritis, unspecified site; R53.83 Other fatigue
CPT/HCPCS: 36415; 80053; 84443; 85025

== ENCOUNTER → 2025-07-21 | Outpatient (CLI) | payer MEDICARE, SELFPAY | END | disposition home or self-care (01) | LOC: PSN 11:48 | PROVIDERS: PCP Family Medicine; Referring Provider Physician Assistant; Visit Provider Physician Assistant | DX: R00.2 Palpitations (principal) | CPT/HCPCS: 93225; 93226 ==

== ENCOUNTER → 2025-08-13 | Outpatient (CLI) | payer MEDICARE, SELFPAY ==
--- NOTE | 2025-08-13 12:57 | ECHOCS_ITS ---
Reason For Study Reason For Study: MVP Procedure This was a 2D Doppler, Color Flow transthoracic echocardiogram. Exam performed in department. Left Ventricle Normal LV size. The left ventricular ejection fraction is 60 %. Stage 1 diastolic dysfunction. No regional wall motion abnormalities noted. Right Ventricle Normal RV size. Normal systolic function. Atria Normal left atrium. Normal right atrium. Mitral Valve Normal mitral valve. Mild (1+) eccentric mitral valve insufficiency. Tricuspid Valve Normal tricuspid valve. Mild (1+) tricuspid valve insufficiency. Pulmonary artery systolic pressure is 22 mmHg. Aortic Valve Trisinus/trileaflet aortic valve. Pulmonic Valve Normal pulmonic valve. Great Vessels Normal aortic root. The pulmonary artery is normal size. Inferior vena cava collapse with respiration. Pericardium/Pleural No pericardial effusion. MMode/2D Measurements & Calculations LVIDd: 3.9 cm IVSd: 0.96 cm Ao root diam: 2.8 cm LVIDs: 2.8 cm LVPWd: 0.84 cm RVDd: 3.3 cm FS: 27.7 % LAV(MOD-bp): 36.1 ml LVAd ap4: 25.5 cm2 LVAd ap2: 27.2 cm2 LAV(MOD-bp) Indexed: 19.4 ml/m2 LVLd ap4: 7.3 cm LVLd ap2: 7.5 cm LAV(MOD-sp2): 36.7 ml EDV(MOD-sp4): 73.1 ml EDV(MOD-sp2): 86.0 ml LAV(MOD-sp4): 31.9 ml EDV(sp4-el): 75.1 ml EDV(sp2-el): 84.1 ml LVAs ap4: 14.8 cm2 LVAs ap2: 15.8 cm2 LVLs ap4: 6.5 cm LVLs ap2: 6.8 cm ESV(MOD-sp4): 28.1 ml ESV(MOD-sp2): 32.5 ml ESV(sp4-el): 28.5 ml ESV(sp2-el): 31.1 ml EF(MOD-sp4): 61.6 % EF(MOD-sp2): 62.2 % EF(sp4-el): 62.1 % SV(MOD-sp4): 45.0 ml SV(MOD-sp2): 53.5 ml SV(sp4-el): 46.6 ml SI(MOD-sp4): 24.2 ml/m2 SI(MOD-sp2): 28.8 ml/m2 LA A4 area: 13.7 cm2 LA dimension(2D): 3.4 cm RA A4 area: 11.8 cm2 TAPSE: 2.0 cm Time Measurements MV dec time: 0.27 sec Doppler Measurements & Calculations MV E max mg: 56.1 cm/sec Lat Peak E' Mg: 4.9 cm/sec Med Peak E' Mg: 5.7 cm/sec MV A max mg: 79.2 cm/sec E/E' lat: 11.5 E/E' med: 9.9 MV E/A: 0.71 Ao V2 max: 133.6 cm/sec LV V1 max: 97.1 cm/sec MV dec slope: 213.6 cm/sec2 Ao max P.1 mmHg LV V1 max P.8 mmHg Ao V2 mean: 96.3 cm/sec LV V1 mean P.1 mmHg Ao mean P.1 mmHg LV V1 mean: 66.5 cm/sec Ao V2 VTI: 29.7 cm LV V1 VTI: 21.2 cm AV (velocity ratio): 0.72 PA V2 max: 97.2 cm/sec TR max mg: 213.4 cm/sec TR max P.3 mmHg ECHO/Echo Complete Interpretation Summary The left ventricular ejection fraction is 60 %. Normal LV size. No regional wall motion abnormalities noted. Mild (1+) eccentric mitral valve insufficiency. Stage 1 diastolic dysfunction. The global longitudinal strain is normal. The global longitudinal strain = -18. 4 % (normal). Ordering Physician: Aguila Gonzalez Referring Physician: Aguila Gonzalez Performed By: Natalya Perdue RDCS
--- OUTSIDE RECORDS SUMMARY | 2025-08-13 13:13 | XMS RPT_ITS | CCD ---
Author Organization [facility] Care Team Providers Care On Site Manager Name Role Phone KEYONNA GONZALEZ DO Primary Care Physician Dr. Keyonna Gonzalez Primary Care Provider [phone] Dr. Keyonna Gonzalez Referring Provider [phone] BINDU Boucher Attending Provider Unavailab Dr. Keyonna Wells Attending Provider Dr. Keyonna Gonzalez Primary Care Provider [phone] Dr. Keyonna Gonzalez Referring Provider BINDU Castaneda Attending Provider Dr. Keyonna Gonzalez Attending Provider Dr. Keyonna Gonzalez DO Primary Care Provider [phone] Dr. Keyonna Gonzalez DO Attending Provider [phone] Dr. Keyonna Gonzalez DO Referring Provider [phone] TOBI LUNA MD Attending KEYONNA Page Primary Care Unavailable KEYONNA GONZALEZ Primary Care Unavailable TOBI LUNA MD Attending Vamshi Kern Attending Provider Dr. Keyonna Gonzalez DO Primary Care Physician Dr. Keyonna Gonzalez DO Attending Physician [phone] Dr. Keyonna Gonzalez DO Referring Provider [phone] Vamshi Leonard Attending Physician Vamshi Leonard Referring Provider Sandy FRY, Dr. Wilkins Attending Physician Brown, Keyonna R Primary Care Unavailable Brown, Keyonna R Attending Unavailable Brown, Keyonna R Referring Unavailable Brown, Keyonna R Referring Unavailable Brown, Keyonna R Primary Care Unavailable Gregorio Castaneda Attending Unavailable Brown, Keyonna R Referring Unavailable Brown, Keyonna R Primary Care Unavailable Brown, Keyonna R Attending Unavailable Brown, Keyonna R Referring Unavailable Waymariel, Vamshi Attending Unavailable Brown, Keyonna R Primary Care Unavailable Brown, Keyonna R Referring Unavailable Brown, Keyonna R Primary Care Unavailable Brown, Keyonna R Attending Unavailable Brown, Keyonna R Referring Unavailable Brown, Keyonna R Primary Care Unavailable Brown, Keyonna R Attending Unavailable Wayt, Vamshi Attending Unavailable Wayt, Vamshi Referring Unavailable Brown, Keyonna R Primary Care Unavailable Brown, Keyonna R Primary Care Unavailable Brown, Keyonna R Attending Unavailable Brown, Keyonna R Referring Unavailable Wayt, Vamshi Attending Unavailable Wayt, Vamshi Referring Unavailable Brown, Keyonna R Primary Care Unavailable Allergies Allergy Classification Reported Allergen(s) Allergy Type Date of Onset Reaction(s) Facility (10 sources) Aspirin Drug Allergy 09-26-20 22 Stomach [facility] (10 sources) atorvastatin Drug Allergy 09-26-20 22 Joint [facility] (10 sources) Cephalexin Drug Allergy 09-26-20 Other [facility] Comment on above: RACING HEART (10 sources) Chlorpheniramine Drug Allergy 09-26-20 22 [facility] (10 sources) Codeine Drug Allergy 09-26-20 22 [facility] (10 sources) Esomeprazole Drug Allergy 09-26-20 22 [facility] (10 sources) guaiFENesin Drug Allergy 09-26-20 22 [facility] (10 sources) Ibuprofen Drug Allergy 09-26-20 22 [facility] (10 sources) Morphine Drug Allergy 09-26-20 22 [facility] (10 sources) Naproxen Drug Allergy 09-26-20 22 Stomach [facility] (10 sources) Penicillins Allergy to substance 09-26-20 [facility] (10 sources) predniSONE Drug Allergy 09-26-20 22 stomach [facility] (10 sources) Propoxyphene Drug Allergy 09-26-20 22 Other [facility] Comment on above: Heart Races (10 sources) Pseudoephedrine Drug Allergy 09-26-20 22 Heart Races [facility] (10 sources) Sulfonamides (Antibiotic) Allergy to substance 09-26-20 Rash [facility] (10 sources) Sulindac Drug Allergy 09-26-20 Rash [facility] (1 source) Aspirin Drug Allergy 07-20-20 [facility] (1 source) atorvastatin Drug Allergy 07-20-20 [facility] (1 source) Cephalexin Drug Allergy 07-20-20 [facility] (1 source) Chlorpheniramine Drug Allergy 07-20-20 [facility] (1 source) Codeine Drug Allergy 07-20-20 [facility] (1 source) Esomeprazole Drug Allergy 07-20-20 [facility] (1 source) guaiFENesin Drug Allergy 07-20-20 [facility] (1 source) Ibuprofen Drug Allergy 07-20-20 [facility] (1 source) Morphine Drug Allergy 07-20-20 [facility] (1 source) Naproxen Drug Allergy 07-20-20 [facility] (1 source) Penicillins Drug allergy (disorder) 07-20-20 [facility] (1 source) predniSONE Drug Allergy 07-20-20 [facility] (1 source) Propoxyphene Drug Allergy 07-20-20 [facility] (1 source) Pseudoephedrine Drug Allergy 07-20-20 [facility] (1 source) Sulfonamides (Antibiotic) Drug allergy (disorder) 07-20-20 [facility] (1 source) Sulindac Drug Allergy 07-20-20 [facility] Medications Current Medications Medication Drug Class(es) Dates Sig (Normalized) Sig (Original) 0.05 ml aflibercept 40 mg/ml injection (7 sources) Vascular Endothelial Growth Factor Inhibitor Start: 09-18-2024 Multivitamin (Multiple Vitamins) tablet (10 sources) Start: 01-21-2018 Start: 01-21-2018 Multivitamin ( Multiple Vitamins) tablet [...] PO EVERY MORNING January 20, 2018 11:00pm Completed/Discontinued Medications Medication Drug Class(es) Dates Sig (Normalized) Sig (Original) alendronic acid 70 mg oral tablet (20 sources) Bisphosphonate Start: 01-17-2023 End: 07-02-2025 take 1 tablet by mouth every week Alendronate (Fosamax) 70 mg tablet Discontinued 70 mg PO EVERY WEEK 12 March 18, 2025 3:34pm July 02, 2025 3:06pm azithromycin 250 mg oral tablet (8 sources) Macrolide Antimicrobial Start: 09-27-2023 End: 12-03-2023 take 2-5 tablets by mouth once daily Azithromycin 250 mg tablet Discontinued 0 PO .COMPLEX 6 0 September 27, 2023 1:00am December 03, 2023 10:50am take 500 mg today (day 1), then 250 mg for 4 days (days 2-5) PO benzonatate 100 mg oral capsule (15 sources) Non-narcotic Antitussive Start: 07-27-2024 End: 07-02-2025 take 2 capsules by mouth three times daily as needed for cough Benzonatate 100 mg capsule Discontinued 200 mg PO THREE TIMES A DAY as needed for cough 30 0 July 27, 2024 12:00am July 02, 2025 3:07pm Start: 09-27-2023 End: 12-03-2023 take 2 capsules by mouth three times daily as needed for cough Benzonatate 100 mg capsule Discontinued 200 mg PO THREE TIMES A DAY as needed for cough 30 0 September 27, 2023 1:00am December 03, 2023 10:50am Start: 09-27-2023 End: 12-03-2023 take 200 mg by mouth three times daily Benzonatate Discontinued 200 MG PO THREE TIMES A DAY September 27, 2023 1:00am December 03, 2023 10:50am brimonidine tartrate 2 mg/ml ophthalmic solution (4 sources) alpha-Adrenergic Agonist Start: 07-02-2025 End: 07-20-2025 Brimonidine 0.2 % drops Discontinued 1 NMA OPHTHALMIC THREE TIMES A DAY July 02, 2025 12:00am July 20, 2025 2:47pm administer approximately 8 hours apart; RIGHT EYE celecoxib 200 mg oral capsule (20 sources) Nonsteroidal Anti-inflammatory Drug Start: 01-21-2018 End: 07-20-2025 take 1 capsule by mouth once daily Celecoxib 200 mg capsule Discontinued 200 mg PO DAILY 30 July 13, 2025 8:16am July 20, 2025 2:48pm cholecalciferol 0.125 mg oral capsule (7 sources) Vitamin D Start: 06-29-2024 End: 07-20-2025 take 1 capsule by mouth once daily Cholecalciferol (Vitamin D3) 125 mcg (5,000 unit) capsule Discontinued 125 ug PO DAILY June 29, 2024 12:00am July 20, 2025 2:48pm citalopram 20 mg oral tablet (20 sources) [...] 21, 2018 12:00am November 06, 2018 4:05pm preservative-free dorzolamide 20 mg/ml / timolol 5 mg/ml ophthalmic solution (4 sources) Carbonic Anhydrase Inhibitor, beta-Adrenergic Tucker Start: 07-02-2025 End: 07-20-2025 Dorzolamide-Timolol (Pf) 2-0.5 % dropperette Discontinued 1 NMA OPHTHALMIC TWICE A DAY July 02, 2025 12:00am July 20, 2025 2:49pm RIGHT EYE doxycycline monohydrate 100 mg oral capsule (20 sources) Tetracycline-class Drug Start: 09-18-2024 End: 09-28-2024 take 1 capsule by mouth twice daily Doxycycline Monohydrate 100 mg capsule Discontinued 100 mg PO TWICE A DAY 20 10 September 18, 2024 1:00am September 27, 2024 1:00am September 28, 2024 1:08am Start: 07-18-2024 End: 07-25-2024 take 1 capsule by mouth twice daily Doxycycline Monohydrate 100 mg capsule Discontinued 100 mg PO TWICE A DAY 14 7 0 July 18, 2024 12:00am July 24, 2024 12:00am July 25, 2024 12:12am Start: 04-17-2024 End: 06-29-2024 take 1 capsule by mouth every twelve hours Doxycycline Hyclate 100 mg capsule Discontinued 100 mg PO Q12H 14 0 April 17, 2024 12:00am June 29, 2024 1:22pm meclizine hydrochloride 12.5 mg oral tablet (20 sources) Antiemetic Start: 06-23-2020 End: 01-03-2021 take 1 tablet by mouth twice daily as needed for dizziness Meclizine 12.5 mg tablet Discontinued 12.5 mg PO TWICE A DAY as needed for dizziness 30 June 23, 2020 12:00am January 03, 2021 3:03pm Start: 02-23-2019 End: 06-23-2020 take 1 tablet by mouth three times daily Meclizine 25 mg tablet Discontinued 25 mg PO THREE TIMES A DAY 20 February 23, 2019 12:00am June 23, 2020 9:41am naproxen 500 mg oral tablet (10 sources) Nonsteroidal Anti-inflammatory Drug Start: 12-29-2020 End: 01-03-2021 take 1 tablet by mouth twice daily as needed Naproxen 500 MG tablet Discontinued 500 mg PO TWICE DAILY NEEDED December 29, 2020 1:00am January 03, 2021 3:02pm prednisoLONE acetate 10 mg/ml ophthalmic suspension (4 sources) Corticosteroid Start: 07-02-2025 End: 07-20-2025 Prednisolone Acetate 1 % drops,suspension Discontinued 2 NMA OPHTHALMIC .EVERY HOUR July 02, 2025 12:00am July 20, 2025 2:48pm RIGHT EYE EVERY HOUR WHILE AWAKE predniSONE 10 mg oral tablet (7 sources) Start: 06-29-2024 End: 07-11-2024 Prednisone 10 mg tablet Discontinued 10 mg PO .COMPLEX 30 12 0 June 29, 2024 12:00am July 10, 2024 12:00am July 11, 2024 12:09am Take 4 pills for 3 days, 3 pills for 3 days, 2 pills for 3 days, take 1 pill for 3 days promethazine hydrochloride 50 mg oral tablet (17 sources) Phenothiazine Start: 09-18-2024 End: 07-02-2025 take 1 tablet by mouth three times daily as needed Promethazine 50 mg tablet Discontinued 50 mg PO THREE TIMES A DAY as needed for motion sickness 30 0 September 18, 2024 1:00am July 02, 2025 3:07pm Start: 06-25-2020 End: 09-27-2023 take 1 tablet by mouth three times daily as needed for nausea and vomiting Promethazine 25 mg tablet Discontinued 25 mg PO THREE TIMES A DAY as needed for nausea and vomiting 14 0 June 25, 2020 12:00am September 27, 2023 3:07pm 72 hr scopolamine 0.0139 mg/hr transdermal system (20 sources) Anticholinergic Start: 12-14-2021 End: 09-27-2023 Scopolamine Base 1 mg over 3 days patch 3 day Discontinued 1 NMA TD Every 3 Days as needed for motion sickness 4 November 21, 2022 11:20am September 27, 2023 3:07pm Start: 12-14-2021 End: 09-27-2023 Scopolamine Base Discontinue d 1 PATCH TD Every 3 Days November 21, 2022 11:20am September 27, 2023 3:07pm Start: 11-06-2018 End: 02-24-2019 Scopolamine Base 1 mg over 3 days patch 3 day Discontinued 1 NMA TD Every 3 Days as needed for motion sickness 4 November 13, 2018 9:26am February 24, 2019 3:37pm Start: 11-06-2018 End: 02-24-2019 Scopolamine Base Discontinue d 1 PATCH TD Every 3 Days November 13, 2018 9:26am February 24, 2019 3:37pm sucralfate 1000 mg oral tablet (10 sources) Aluminum Complex Start: 01-03-2021 End: 09-27-2023 take 1 tablet by mouth at bedtime Sucralfate (Carafate) 1 gram tablet Discontinued 1 g PO before meals and at bedtime 40 January 03, 2021 1:00am September 27, 2023 3:07pm tiZANidine 2 mg oral capsule (17 sources) Central alpha-2 Adrenergic Agonist Start: 06-29-2024 End: 07-02-2025 take 1 mg by mouth every eight hours as needed Tizanidine 2 mg capsule Discontinued 1 mg PO Q8H as needed June 29, 2024 12:00am July 02, 2025 3:06pm Start: 06-23-2020 End: 09-27-2023 take 1 tablet by mouth at bedtime as needed Tizanidine 2 mg tablet Discontinued 2 mg PO AT BEDTIME as needed for muscle spasticity 30 0 June 23, 2020 12:00am September 27, 2023 3:07pm traMADol hydrochloride 50 mg oral tablet (10 sources) Opioid Agonist Start: 01-21-2018 End: 02-06-2018 take 1 tablet by mouth every twelve hours as needed for pain Tramadol 50 mg tablet Discontinued 50 mg PO Q12H as needed for pain 14 0 January 21, 2018 12:00am February 06, 2018 2:42pm valACYclovir 1000 mg oral tablet (8 sources) Herpesvirus Nucleoside Analog DNA Polymerase Inhibitor, Herpes Simplex Virus Nucleoside Analog DNA Polymerase Inhibitor, Herpes Zoster Virus Nucleoside Analog DNA Polymerase Inhibitor Start: 07-02-2025 End: 07-20-2025 Valacyclovir 1 gram tablet Discontinued 1000 mg PO TWICE A DAY July 02, 2025 12:00am July 20, 2025 2:48pm Start: 07-02-2025 End: 07-20-2025 VALACYCLOVIR 300 mg Disconti nued PO TWICE A DAY July 02, 2025 12:00am July 20, 2025 2:48pm Start: 07-02-2025 VALACYCLOVIR 3 00 mg Active PO TWICE A DAY July 02, 2025 12:00am zinc gluconate 100 mg oral tablet (7 sources) Start: 06-29-2024 End: 07-02-2025 Zinc Gluconate 100 mg tablet Discontinued PO June 29, 2024 12:00am July 02, 2025 3:07pm zolpidem tartrate 10 mg oral tablet (20 sources) gamma-Aminobuty chaz Acid-ergic Agonist Start: 12-22-2020 End: 09-27-2023 take 1 tablet by mouth at bedtime Zolpidem (Ambien) 10 mg tablet Discontinued 10 mg PO AT BEDTIME 10 0 December 22, 2020 1:00am September 27, 2023 3:07pm Start: 11-06-2018 End: 02-24-2019 take 1 tablet by mouth at bedtime Zolpidem (Ambien) 10 mg tablet Discontinued 10 mg PO AT BEDTIME 10 0 November 06, 2018 1:00am February 24, 2019 3:37pm Problems Active Problems Problem Classification Problem Date Documented Da te Episodic/Chronic Acute bronchitis (9 sources) Acute bronchitis; Translations: [Acute bronchitis, unspecified] 09-28-2023 Episodic Adjustment disorders (11 sources) Reactive depression (situational); Translations: [Adjustment disorder with depressed mood] 11-28-2022 Chronic Cardiac dysrhythmias (9 sources) Palpitations; Translations: [Palpitations] Onset: 07-31-2025 07-02-2025 Episodic Conditions associated with dizziness or vertigo (17 sources) Benign paroxysmal positional vertigo; Translations: [Benign paroxysmal vertigo, unspecified ear] 12-28-2020 Episodic Disorders of lipid metabolism (14 sources) Hyperlipidemia; Translations: [Hyperlipidemia, unspecified] 12-28-2020 Chronic E Codes: Fall (3 sources) Fall on same level; Translations: [Fall on same level, unspecified, initial encounter] Episodic Fracture of lower limb (1 source) Closed fracture of lateral malleolus; Translations: [Displaced fracture of lateral malleolus of right fibula, initial encounter for closed fracture] Episodic Gastritis and duodenitis (13 sources) Bile-induced gastritis; Translations: [Other gastritis without bleeding] 01-03-2021 Episodic Headache; including migraine (2 sources) Headache; Translations: [Daily headache] Episodic Heart valve disorders (8 sources) Mitral valve prolapse; Translations: [Nonrheumatic mitral (valve) prolapse] Onset: 07-20-2025 07-20-2025 Chronic Immunizations and screening for infectious disease (2 sources) Encounter for immunization; Translations: [Need for prophylactic vaccination and inoculation against influenza] Episodic Inflammation; infection of eye (except that caused by tuberculosis or sexually transmitteddisease) (1 source) Panuveitis, right eye; 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, right eye] Onset: 05-24-2025 Chronic Malaise and fatigue (9 sources) Fatigue; Translations: [Other fatigue] Onset: 07-03-2025 07-02-2025 Episodic Osteoarthritis (16 sources) Arthritis; Translations: [Unspecified osteoarthritis, unspecified site] Onset: 03-23-2025 01-21-2018 Chronic Osteoporosis (1 source) Age-related osteoporosis without current pathological fracture; Translations: [Age-related osteoporosis without current pathological fracture] Onset: 04-24-2025 Chronic Other and unspecified benign neoplasm (2 sources) Melanocytic nevi, unspecified; Translations: [Benign neoplasm of skin, site unspecified] Episodic Other bone disease and musculoskeletal deformities (14 sources) Osteopenia; Translations: [Other specified disorders of bone density and structure, unspecified site] 01-21-2018 Episodic Other bone disease and musculoskeletal deformities (1 source) Other specified disorders of bone density and structure, unspecified site; Translations: [Disorder of bone and cartilage, unspecified] 11-28-2022 Episodic Other infections; including parasitic (10 sources) Late effects of other and unspecified infectious and parasitic diseases; 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-2021 Chronic Other nervous system disorders (6 sources) Paresthesia of skin; Translations: [Paresthesia of both hands] 07-03-2025 Episodic Other upper respiratory infections (7 sources) Sinusitis; Translations: [Chronic sinusitis, unspecified] 09-18-2024 Chronic Other upper respiratory infections (7 sources) Acute sinusitis; Translations: [Acute sinusitis, unspecified] 09-18-2024 Episodic Residual codes; unclassified (10 sources) History of clinical finding in subject; Translations: [Personal history of other specified conditions] 11-06-2018 Episodic Retinal detachments; defects; vascular occlusion; and retinopathy (9 sources) Degenerative disorder of macula ; Translations: [Unspecified macular degeneration] 03-24-2025 Chronic Spondylosis; intervertebral disc disorders; other back problems (7 sources) Low back pain; Translations: [Lumbar back pain] 09-18-2024 Episodic Unclassified (1 source) Low back pain, unspecified; Translations: [Low back pain, unspecified] Onset: 07-21-2025 Past or Other Problems Problem Classification Problem Date Documented Da te Episodic/Chronic Other screening for suspected conditions (not mental disorders or infectious disease) (1 source) Encounter for screening mammogram for malignant neoplasm of breast; Translations: [Encounter for screening mammogram for malignant neoplasm of breast] Onset: 04-19-2025 Episodic Unclassified (10 sources) History of normal colonoscopy 05-18-2022 Comment on above: Has had 2 ( 2002 ,16 04) Results Test Name Value Interpretation Reference Range Facility Internal Medicine Office Vis iton 09-23-2025 Internal Medicine Office Visit [facility] Internal Medicine [address] [place] [address] [place] [address] OFFICE VISIT Date of Service: 07/20/25 MR#: [id number] Acct: [id number] Name: DARA QUESADA Rep #: [id number] : 1945 Provider: Dr. Keyonna Vivas own, DO Age/Sex: 80/F Location: [facility] [email or web address] Status: Signed Intake Vital Signs 03/23/25 16:15 07/02/25 15:21 07/20/25 14:52 Height 5 ft 6 in 5 ft 6 in 5 ft 6 in Weight: 168 lb 8 oz BMI 27.1 BP 118/78 Blood Pressure Location Rt brachial Position Sitting Pulse 91 Pulse Source Monitor Temp 97.9 F Temp Source Temporal Pulse Oximetry (%) 96 Oxygen Delivery Method room air Intake Visit Reasons: FINGER GOING NUMB Chief Complaint: finger going numb Bb Shot Packer Required: No Accompanied by: Self Is patient in pain?: No Allergies aspirin Allergy (Severe, Verified 07/20/25 14:38) Stomach Pain atorvastatin (From Lipitor) Allergy (Severe, Verified 07/20/25 14:38) Joint Pain chlorpheniramine (From Isoclor) Allergy (Severe, Verified 07/20/25 14:38) Heart Races codeine Allergy (Severe, Verified 07/20/25 14:38) Heart Races esomeprazole (From Nexium) Allergy (Severe, Verified 07/20/25 14:38) Joint Pain guaifenesin (From Isoclor) Allergy (Severe, Verified 07/20/25 14:38) Heart Races ibuprofen (From Motrin) Allergy (Severe, Verified 07/20/25 14:38) Heart Races morphine Allergy (Severe, Verified 07/20/25 14:38) Rash naproxen (From Naprosyn) Allergy (Severe, Verified 07/20/25 14:38) Stomach Pain propoxyphene (From Darvon) Allergy (Severe, Verified 07/20/25 14:38) Other pseudoephedrine (From Isoclor) Allergy (Severe, Verified 07/20/25 14:38) Heart Races sulindac (From Clinoril) Allergy (Severe, Verified 07/20/25 14:38) Rash Penicillins Allergy (Intermediate, Verified 07/20/25 14:38) Rash Sulfa (Sulfonamide Antibiotics) Allergy (Intermediate, Verified 07/20/25 14:38) Rash cephalexin (From Keflex) Adverse Reaction (Severe, Verified 07/20/25 14:38) Other prednisone Adverse Reaction (Severe, Verified 07/20/25 14:38) stomach pain Medications ???Medication ???Instructions ???Recorded ???Confirmed ???Type multivitamin (Multiple Vitamins 1 tab PO QAM 01/21/18 07/20/25 His tory tablet) aflibercept 2 mg/0.05 mL 2 mg intravitreal Q6W 09/18/24 History intravitreal solution for injection (Eylea) citalopram 20 mg tablet 20 mg PO DAILY #90 tabs 03/23/25 0 07/20/25 Rx celecoxib 200 mg capsule 200 mg PO QDAY 07/20/25 07/20/25 H istory Have you fallen in the past year?: No Nurse's Note: patient c/o fluttering in chest, SOB, EKG was normal blood work done will be getting heart monitor to wear PFSH Medical History Macular degeneration Situational depression [...] participate in: none HPI HPI Chief Complaint: finger going numb Details: DARA QUESADA, is a 80 F who presents to the office today for palpitations and fluttering in the chest. Since she has stopped the medicine she was taking for her high eye pressure her nausea and hand and finger numbness have gone. What she is left with is this fluttery sensation in chest it comes and goes. She says she has had that since her 20s but usually was only in the spring and the fall and nobody was really able to give a name to it. ROS Const Constitutional: No body ache, excessive sweating, fatigue, fever(s), frequent falls, headache(s), snoring, weakness, weight change, sleep problems or change in appetite Eyes Eyes: No blurry vision, change in vision, eye pain or Light sensitivity ENT ENT: No abnormal hearing, ear or mastoid pain, tinnitus, nasal congestion, headache(s), neck pain or sore throat Resp Respiratory: No cough, shortness of breath, snoring or wheezing Cardio Cardiology: No chest pain at rest, chest pain with exertion, excessive sweating, shortness of breath, dyspnea on exertion, lightheadedness, orthopnea or palpitations Gastro GI: No (more content not included)... Normal [facility] Absolute lymphocyte countOrd ered By: Vamshi Rodriges on 07-12-2025 Lymphocytes Auto (Unsp spec) [#/Vol] 1.53 10*3/uL 0.83-4.51 [facility] Absolute neutrophil countOrd ered By: Vamshi Rodriges on 07-12-2025 Neutrophils (Bld) [#/Vol] 3.4 10*3/uL 2.0-7.7 [facility] Anion gap in Serum or Plasma Ordered By: Vamshi Rodriges on 07-12-2025 Anion gap [Moles/Vol] 9 mmol/L 5- [facility] Automated lymphocyte count a s percentage of total leukocytesOrdered By: Vmashi Rodriges on 07-12-2025 Lymphocytes/100 WBC Auto (Unsp spec) 26.8 % 19-41 [facility] BUN/creatinine ratioOrdered By: Vamshi Rodriges on 07-12-2025 Urea nitrogen/Creatinine [Mass ratio] 16.1 mg/mg 10- [facility] Basophil percentageOrdered B y: Vamshi Rodriges on 07-12-2025 Basophils/100 WBC (Bld) 0.7 % 0-1 [facility] Bilirubin, totalOrdered By: Vamshi Rodriges on 07-12-2025 Bilirubin [Mass/Vol] 0.32 mg/dL 0.00-1.30 [facility] CBC W/Diff, Automatedon 06-28-2024 Absolute Lymph 1.53 X10 3/uL Normal 0.83-4.51 [facility] Comment on above: Performed By: #### L 500.4050, L501.9520, L100.0100 #### [facility] [address] [place], [address] Absolute Neut 3.4 X10 3/uL Normal 2.0-7.7 [facility] Comment on above: Performed By: #### L 500.4050, [id number], L100.0100 #### [facility] [address] [place], [address] Basophils/100 WBC (Bld) 0.7 % Normal 0-1 [facility] Comment on above: Performed By: #### L 500.4050, [id number], L100.0100 #### [facility] [address] [place], [address] Eosinophils/100 WBC (Bld) 3.0 % Normal 0-5 [facility] Comment on above: Performed By: #### L 500.4050, [id number], L100.0100 #### [facility] [address] [place], [address] Erythrocyte distribution width (RBC) [Ratio] 14.2 % Normal 11.6-14.6 [facility] Comment on above: Performed By: #### L 500.4050, [id number], L100.0100 #### [facility] [address] [place], [address] Hematocrit (Bld) [Volume fraction] 35.3 % Low 37-47 [facility] Comment on above: Performed By: #### L 500.4050, L501.9520, L100.0100 #### [facility] [address] [place], [address] Hemoglobin (Bld) [Mass/Vol] 12.2 g/dL Normal 12.0-15.0 [facility] Comment on above: Performed By: #### L 500.4050, L501.9520, L100.0100 #### [facility] [address] [place], [address] IG% 0.500 Normal 0.0-0.9 [facility] Comment on above: Result Comment: IG% - Immature Granulocytes (promyelocytes, myelocytes and metamyelocytes) > 1% indicates that a LEFT SHIFT is Present. Performed By: #### L 500.4050, L501.9520, L100.0100 #### [facility] [address] [place], [address] Lymphocytes/100 WBC (Bld) 26.8 % Normal 19-41 [facility] Comment on above: Performed By: #### L 500.4050, L501.9520, L100.0100 #### [facility] [address] [place], [address] MCH (RBC) [Entitic mass] 33.3 pg High 27.0-32.0 [facility] Comment on above: Performed By: #### L 500.4050, L501.9520, L100.0100 #### [facility] [address] [place], [address] MCHC (RBC) [Mass/Vol] 34.6 g/dL Normal 32-36 [facility] Comment on above: Performed By: #### L 500.4050, L501.9520, L100.0100 #### [facility] [address] [place], [address] MCV (RBC) [Entitic vol] 96.4 fL Normal 81-99 [facility] Comment on above: Performed By: #### L 500.4050, L501.9520, L100.0100 #### [facility] [address] [place], [address] Monocytes/100 WBC (Bld) 9.5 % Normal 0-10 [facility] Comment on above: Performed By: #### L 500.4050, L501.9520, L100.0100 #### [facility] [address] [place], [address] Neutrophils/100 WBC (Bld) 59.5 % Normal 47-70 [facility] Comment on above: Performed By: #### L 500.4050, L501.9520, L100.0100 #### [facility] [address] [place], [address] Nucleated RBC (Bld) [#/Vol] 0 10*3/uL Normal 0-5 [facility] Comment on above: Performed By: #### L 500.4050, L501.9520, L100.0100 #### [facility] [address] [place], [address] Platelet mean volume (Bld) [Entitic vol] 9.3 fL Normal 6.2-12.0 [facility] Comment on above: Performed By: #### L 500.4050, L501.9520, L100.0100 #### [facility] [address] [place], [address] Platelets (Bld) [#/Vol] 235 10*3/uL Normal 150-450 [facility] Comment on above: Performed By: #### L 500.4050, L501.9520, L100.0100 #### [facility] [address] [place], [address] RBC (Bld) [#/Vol] 3.66 10*6/uL Low 4.2-5.4 [facility] Comment on above: Performed By: #### L 500.4050, L501.9520, L100.0100 #### [facility] [address] [place], [address] RDW SD 50.1 fl High 35.1-43.9 [facility] Comment on above: Performed By: #### L 500.4050, L501.9520, L100.0100 #### [facility] [address] [place] [place], [address] WBC (Bld) [#/Vol] 5.7 10*3/uL Normal 4.4-11.0 [facility] Comment on above: Performed By: #### L 500.4050, L501.9520, L100.0100 #### [facility] [address] [place], [address] Carbon dioxide, total [Moles /volume] in Central venous bloodOrdered By: Vamshi Rodriges on 07-12-2025 CO2 [Moles/Vol] 17.8 mmol/L Low 21.0-32.0 [facility] Chloride assayOrdered By: Clayton Rodriges on 07-12-2025 Chloride [Moles/Vol] 111 mmol/L High 98-108 [facility] Comprehensive Metabolic Prof ilon 07-12-2025 Albumin [Mass/Vol] 3.8 g/dL Normal 3.4-4.8 [facility] Comment on above: Performed By: #### L 500.4050, L501.9520, L100.0100 #### [facility] [address] [place], [address] Albumin/Globulin [Mass ratio] 1.5 {ratio} Normal 0.9-2.4 [facility] Comment on above: Performed By: #### L 500.4050, L501.9520, L100.0100 #### [facility] [address] [place], [address] ALK PHOS 63 U/L Normal 35-104 [facility] Comment on above: Performed By: #### L 500.4050, L501.9520, L100.0100 #### [facility] [address] [place], [address] ALT [Catalytic activity/Vol] 11 U/L Normal <=34 [facility] Comment on above: Performed By: #### L 500.4050, L501.9520, L100.0100 #### [facility] [address] [place], [address] AST [Catalytic activity/Vol] 13 U/L Normal <=31 [facility] Comment on above: Performed By: #### L 500.4050, L501.9520, L100.0100 #### [facility] [address] [place], [address] Bilirubin [Mass/Vol] 0.32 mg/dL Normal 0.00-1.30 [facility] Comment on above: Performed By: #### L 500.4050, L501.9520, L100.0100 #### [facility] [address] [place], [address] BUN/CRE 16.1 RATIO Normal 10-20 [facility] Comment on above: Performed By: #### L 500.4050, L501.9520, L100.0100 #### [facility] [address] [place], [address] Calcium [Mass/Vol] 8.9 mg/dL Normal 7.6-11.0 [facility] Comment on above: Performed By: #### L 500.4050, L501.9520, L100.0100 #### [facility] [address] [place], [address] Chloride [Moles/Vol] 111 mmol/L High 98-108 [facility] Comment on above: Performed By: #### L 500.4050, L501.9520, L100.0100 #### [facility] [address] [place], [address] CO2 [Moles/Vol] 17.8 mmol/L Low 21.0-32.0 [facility] Comment on above: Performed By: #### L 500.4050, L501.9520, L100.0100 #### [facility] [address] [place], [address] Creatinine [Mass/Vol] 0.92 mg/dL Normal 0.70-1.20 [facility] Comment on above: Performed By: #### L 500.4050, L501.9520, L100.0100 #### [facility] [address] [place], [address] GAP 9 Normal 5-15 [facility] Comment on above: Performed By: #### L 500.4050, L501.9520, L100.0100 #### [facility] [address] [place], [address] GFR/1.73 sq M.predicted among non-blacks MDRD (S/P/Bld) [Vol rate/Area] 63 mL/min/{1.73_m2} Normal >60 [facility] Comment on above: Result Comment: mL/m in/1.73m2 CKD-EPI Creatinine Equation (2020) Performed By: #### L 500.4050, L501.9520, L100.0100 #### [facility] [address] [place], [address] Globulin (S) [Mass/Vol] 2.5 g/dL Normal 2.2-4.2 [facility] Comment on above: Performed By: #### L 500.4050, L501.9520, L100.0100 #### [facility] [address] [place], [address] Glucose [Mass/Vol] 88 mg/dL Normal 70-99 [facility] Comment on above: Performed By: #### L 500.4050, L501.9520, L100.0100 #### [facility] [address] [place], [address] Potassium [Moles/Vol] 3.7 mmol/L Normal 3.3-5.1 [facility] Comment on above: Performed By: #### L 500.4050, L501.9520, L100.0100 #### [facility] [address] [place], [address] Sodium [Moles/Vol] 138 mmol/L Normal 133-145 [facility] Comment on above: Performed By: #### L 500.4050, L501.9520, L100.0100 #### [facility] [address] [place], [address] T PROT 6.3 g/dL Normal 5.9-8.4 [facility] Comment on above: Performed By: #### L 500.4050, L501.9520, L100.0100 #### [facility] [address] [place], [address] Urea nitrogen [Mass/Vol] 15 mg/dL Normal 4-19 [facility] Comment on above: Performed By: #### L 500.4050, L501.9520, L100.0100 #### [facility] [address] [place], [address] Eosinophil percentageOrdered By: Vamshi Rodriges on 07-12-2025 Eosinophils/100 WBC (Bld) 3.0 % 0-5 [facility] Erythrocyte distribution wid th ratioOrdered By: Vamshi Rodriges on 07-12-2025 Erythrocyte distribution width (RBC) [Ratio] 14.2 % 11.6-14.6 [facility] Erythrocyte distribution wid th standard deviationOrdered By: Vamshi Rodriges on 07-12-2025 Erythrocyte distribution width (RBC) [Ratio] 50.1 fl High 35.1-43.9 [facility] Glomerular filtration rate ( GFR) estimation/1.73 sq m using serum, plasma, or whole bOrdered By: Vamshi Rodriges on 07-12-2025 GFR/1.73 sq M.predicted among non-blacks MDRD (S/P/Bld) [Vol rate/Area] 63 mL/min/{1.73_m2} >60 [facility] Comment on above: mL/min/1.73m2 CKD-EP I Creatinine Equation (2020) Hematocrit Auto (Bld) [Volum e fraction]Ordered By: Vamshi Rodriges on 07-12-2025 Hematocrit (Bld) [Volume fraction] 35.3 % Low 37-47 [facility] Hemoglobin measurementOrdere d By: Vamshi Rodriges on 07-12-2025 Hemoglobin (Bld) [Mass/Vol] 12.2 g/dL 12.0-15.0 [facility] Immature granulocytes/100 WB C Auto (Bld)Ordered By: Vamshi Rodriges on 07-12-2025 Immature granulocytes/100 WBC (Bld) 0.500 % 0.0-0.9 [facility] Comment on above: IG% - Immature Granu locytes (promyelocytes, myelocytes and metamyelocytes) > 1% indicates that a LEFT SHIFT is Present. Laboratory - Chemistry and C hemistry - challengeOrdered By: Vamshi Rodriges on 07-12-2025 AST [Catalytic activity/Vol] 13 U/L <32 [facility] MCV (mean corpuscular volume ) determinationOrdered By: Vamshi Rodriges on 07-12-2025 MCV (RBC) [Entitic vol] 96.4 fL 81-99 [facility] Mean corpuscular hemoglobin (MCH) determinationOrdered By: Vamshi Rodriges on 07-12-2025 MCH (RBC) [Entitic mass] 33.3 pg High 27.0-32.0 [facility] Mean corpuscular hemoglobin concentration (MCHC) determinationOrdered By: Vamshi Rodriges on 07-12-2025 MCHC (RBC) [Mass/Vol] 34.6 g/dL 32-36 [facility] Mean platelet volume determi nationOrdered By: Vamshi Rodriges on 07-12-2025 Platelet mean volume (Bld) [Entitic vol] 9.3 fL 6.2-12.0 [facility] Monocyte percentageOrdered B y: Vamshi Rodriges on 07-12-2025 Monocytes/100 WBC (Bld) 9.5 % 0-10 [facility] Neutrophil percentageOrdered By: Vamshi Rodriges on 07-12-2025 Neutrophils/100 WBC (Bld) 59.5 % 47-70 [facility] Nucleated red blood cell per centageOrdered By: Vamshi Rodriges on 07-12-2025 Nucleated RBC/100 WBC (Bld) [Ratio] 0 % 0-5 [facility] Platelet countOrdered By: Clayton ttkarina Rodriges on 07-12-2025 Platelets (Bld) [#/Vol] 235 10*3/uL 150-450 [facility] Potassium measurement (mass/ volume)Ordered By: Vamshi Rodriges on 07-12-2025 Potassium (Unsp spec) [Mass/Vol] 3.7 mmol/L 3.3-5.1 [facility] RBC Auto (Bld) [#/Vol]Ordere d By: Vamshi Rodriges on 07-12-2025 RBC (Bld) [#/Vol] 3.66 10*6/uL Low 4.2-5.4 [facility] Serum creatinine measurement (mass/volume)Ordered By: Vamshi Rodriges on 07-12-2025 Creatinine [Mass/Vol] 0.92 mg/dL 0.70-1.20 [facility] Serum globulin measurementOr dered By: Vamshi Rodriges on 07-12-2025 Globulin (S) [Mass/Vol] 2.5 g/dL 2.2-4.2 [facility] Serum glucose measurement (m ass/volume)Ordered By: Vamshi Rodriges on 07-12-2025 Glucose [Mass/Vol] 88 mg/dL 70-99 [facility] Serum or plasma alanine donald otransferase (ALT) measurementOrdered By: Vamshi Rodriges on 07-12-2025 ALT [Catalytic activity/Vol] 11 U/L <35 [facility] Serum or plasma albumin cam urement (mass/volume)Ordered By: Vamshi Rodriges on 07-12-2025 Albumin [Mass/Vol] 3.8 g/dL 3.4-4.8 [facility] Serum or plasma albumin/glob ulin mass ratioOrdered By: Vamshi Rodriges on 07-12-2025 Albumin/Globulin [Mass ratio] 1.5 {ratio} 0.9-2.4 [facility] Serum or plasma alkaline patsy sphatase measurementOrdered By: Vamshi Rodriges on 07-12-2025 ALP [Catalytic activity/Vol] 63 U/L 35-104 [facility] Serum or plasma calcium cam urement (mass/volume)Ordered By: Vamshi Rodriges on 07-12-2025 Calcium [Mass/Vol] 8.9 mg/dL 7.6-11.0 [facility] Serum or plasma urea nitroge n measurement (mass/volume)Ordered By: Vamshi Rodriges on 07-12-2025 Urea nitrogen [Mass/Vol] 15 mg/dL 4-19 [facility] Sodium levelOrdered By: John Rodriges on 07-12-2025 Sodium [Moles/Vol] 138 mmol/L 133-145 [facility] TSH DL <= 0.005 mIU/L QnOrde red By: Vamshi Rodriges on 07-12-2025 TSH Qn 2.070 uIU/mL 0.300-4.200 [facility] Thyroid Stim Hormone (TSH)on 07-12-2025 TSH 2.070 uIU/mL Normal 0.300-4.200 [facility] Comment on above: Performed By: #### L 500.4050, L501.9520, L100.0100 #### [facility] [address] [place] [address]. [place], [place], [address] Total proteinOrdered By: Nixon Rodriges on 07-12-2025 Protein [Mass/Vol] 6.3 g/dL 5.9-8.4 [facility] White blood cell (WBC) count Ordered By: Vamshi Rodriges on 07-12-2025 WBC (Bld) [#/Vol] 5.7 10*3/uL 4.4-11.0 [facility] Internal Medicine Office Vis abbie 07-02-2025 Internal Medicine Office Visit [facility] [address] [place] [address] [place] [address] OFFICE VISIT Date of Service: 07/02/25 MR#: [id number] Acct: [id number] Name: DARA QUESADA Rep #: [id number] : 1945 Provider: BINDU Hernandez Age/Sex: 80/F Location[place] [facility] Status: Signed Intake Vital Signs 03/23/25 16:15 07/02/25 15:21 Height 5 ft 6 in 5 ft 6 in Weight: 166 lb 4 oz 162 lb BMI 26.8 26.1 BP 118/78 104/64 Blood Pressure Location Rt brachial Rt brachial Position Sitting Sitting Respiration 16 16 Pulse 91 85 Pulse Source Monitor Monitor Temp 96.7 F L 97.3 F L Temp Source Temporal Temporal Pulse Oximetry (%) 95 96 Oxygen Delivery Method room air room air Intake Visit Reasons: Dizziness, possible flutters/med side effects Chief Complaint: DIZZINESS, POSSIBLE FLUTTERS/MED SE Is patient in pain?: No Allergies aspirin Allergy (Severe, Verified 07/02/25 15:05) Stomach Pain atorvastatin (From Lipitor) Allergy (Severe, Verified 07/02/25 15:05) Joint Pain chlorpheniramine (From Isoclor) Allergy (Severe, Verified 07/02/25 15:05) Heart Races codeine Allergy (Severe, Verified 07/02/25 15:05) Heart Races esomeprazole (From Nexium) Allergy (Severe, Verified 07/02/25 15:05) Joint Pain guaifenesin (From Isoclor) Allergy (Severe, Verified 07/02/25 15:05) Heart Races ibuprofen (From Motrin) Allergy (Severe, Verified 07/02/25 15:05) Heart Races morphine Allergy (Severe, Verified 07/02/25 15:05) Rash naproxen (From Naprosyn) Allergy (Severe, Verified 07/02/25 15:05) Stomach Pain propoxyphene (From Darvon) Allergy (Severe, Verified 07/02/25 15:05) Other pseudoephedrine (From Isoclor) Allergy (Severe, Verified 07/02/25 15:05) Heart Races sulindac (From Clinoril) Allergy (Severe, Verified 07/02/25 15:05) Rash Penicillins Allergy (Intermediate, Verified 07/02/25 15:05) Rash Sulfa (Sulfonamide Antibiotics) Allergy (Intermediate, Verified 07/02/25 15:05) Rash cephalexin (From Keflex) Adverse Reaction (Severe, Verified 07/02/25 15:05) Other prednisone Adverse Reaction (Severe, Verified 07/02/25 15:05) stomach pain Medications ???Medication ???Instructions ???Recorded ???Confirmed ???Type multivitamin (Multiple Vitamins 1 tab PO QAM 01/21/18 07/02/25 His tory tablet) cholecalciferol (vitamin D3) 125 125 mcg PO DAILY 06/29/24 07/02/25 History mcg (5,000 unit) capsule aflibercept 2 mg/0.05 mL 2 mg intravitreal Q6W 09/18/2403/21 History intravitreal solution for injection (Eylea) citalopram 20 mg tablet 20 mg PO DAILY #90 tabs 03/23/25 0 07/02/25 Rx celecoxib 200 mg capsule 200 mg PO DAILY #30 caps 05/19/25 07/02/25 Rx VALACYCLOVIR PO BID 07/02/25 History brimonidine 0.2 % eye drops 1 drp ophthalmic (eye) TID 5 07/02/25 History dorzolamide-timolol (PF) 2 %-0.5 % 1 drp ophthalmic (eye) BID 07/0207/02/25 History eye drops in a dropperette prednisolone acetate 1 % eye 2 drp ophthalmic (eye) .EVERY HOUR 07/02/25 07/02/25 History drops,suspension valacyclovir 1 gram tablet 1,000 mg PO BID 07/02/25 07/02/25 History Have you fallen in the past year?: [...] participate in: none HPI HPI Chief Complaint: DIZZINESS, POSSIBLE FLUTTERS/MED SE Details: DARA QUESADA, is a 80 F who presents to the office today for some generalized symptoms. She states that she states that she hasn't felt great for the past 6 weeks. She states that she just hasn't felt like herself. She states that she started to feel this way after she was having the eye complaints. She states that she just feels like tired. She states that she has had some tingling in the finger tips. This is not constant and has not had a pattern. She has been checking her BP at home. She states that it has not been as low as it is today. She typically runs pretty much right around 120s systolically She has been drinking a lot of wate (more content not included)... Normal [facility] Internal Medicine Office Visit [facility] [address] [place] [address] [place] [address] OFFICE VISIT Date of Service: 07/02/25 MR#: [id number] Acct: [id number] Name: DARA QUESADA Rep #: [id number] : 1945 Provider: BINDU Hernandez Age/Sex: 80/F Location: [facility] [place] Status: Signed Intake Vital Signs 03/23/25 16:15 07/02/25 15:21 Height 5 ft 6 in 5 ft 6 in Weight: 162 lb BMI 26.1 BP 104/64 Blood Pressure Location Rt brachial Position Sitting Respiration 16 Pulse 85 Pulse Source Monitor Temp 97.3 F L Temp Source Temporal Pulse Oximetry (%) 96 Oxygen Delivery Method room air Intake Visit Reasons: Dizziness, possible flutters/med side effects Chief Complaint: DIZZINESS, POSSIBLE FLUTTERS/MED SE Allergies aspirin Allergy (Severe, Verified 07/02/25 15:05) Stomach Pain atorvastatin (From Lipitor) Allergy (Severe, Verified 07/02/25 15:05) Joint Pain chlorpheniramine (From Isoclor) Allergy (Severe, Verified 07/02/25 15:05) Heart Races codeine Allergy (Severe, Verified 07/02/25 15:05) Heart Races esomeprazole (From Nexium) Allergy (Severe, Verified 07/02/25 15:05) Joint Pain guaifenesin (From Isoclor) Allergy (Severe, Verified 07/02/25 15:05) Heart Races ibuprofen (From Motrin) Allergy (Severe, Verified 07/02/25 15:05) Heart Races morphine Allergy (Severe, Verified 07/02/25 15:05) Rash naproxen (From Naprosyn) Allergy (Severe, Verified 07/02/25 15:05) Stomach Pain propoxyphene (From Darvon) Allergy (Severe, Verified 07/02/25 15:05) Other pseudoephedrine (From Isoclor) Allergy (Severe, Verified 07/02/25 15:05) Heart Races sulindac (From Clinoril) Allergy (Severe, Verified 07/02/25 15:05) Rash Penicillins Allergy (Intermediate, Verified 07/02/25 15:05) Rash Sulfa (Sulfonamide Antibiotics) Allergy (Intermediate, Verified 07/02/25 15:05) Rash cephalexin (From Keflex) Adverse Reaction (Severe, Verified 07/02/25 15:05) Other prednisone Adverse Reaction (Severe, Verified 07/02/25 15:05) stomach pain Medications ???Medication ???Instructions ???Recorded ???Confirmed ???Type multivitamin (Multiple Vitamins 1 tab PO QAM 01/21/18 07/02/25 His tory tablet) cholecalciferol (vitamin D3) 125 125 mcg PO DAILY 06/29/24 07/02/25 History mcg (5,000 unit) capsule aflibercept 2 mg/0.05 mL 2 mg intravitreal Q6W 09/18/2403/21 History intravitreal solution for injection (Eylea) citalopram 20 mg tablet 20 mg PO DAILY #90 tabs 03/23/25 0 07/02/25 Rx celecoxib 200 mg capsule 200 mg PO DAILY #30 caps 05/19/25 07/02/25 Rx VALACYCLOVIR PO BID 07/02/25 History brimonidine 0.2 % eye drops 1 drp ophthalmic (eye) TID 2 5 07/02/25 History dorzolamide-timolol (PF) 2 %-0.5 % 1 drp ophthalmic (eye) BID 07/0207/02/25 History eye drops in a dropperette prednisolone acetate 1 % eye 2 drp ophthalmic (eye) .EVERY HOUR 07/02/25 07/02/25 History drops,suspension valacyclovir 1 gram tablet 1,000 mg PO BID 07/02/25 07/02/25 History Have you fallen in the past year?: [...] participate in: none HPI HPI Chief Complaint: DIZZINESS, POSSIBLE FLUTTERS/MED SE Details: DARA QUESADA, is a 80 F who presents to the office today for Coding Level of Care Code No Charge Assessment and Plan Assessment and Plan Orders: Orders CBC W/Diff, Automated 07/02/25 M54.50 - Low back pain, unspecified Comprehensive Metabolic Profil 07/02/25 M19.90 - Unspecified osteoarthritis, unspecified site Thyroid Stim Hormone (TSH) 07/02/25 R53.83 - Other fatigue Cardiac Holter Monitor, 48 Hrs 07/02/25 R00.2 - Palpitations Nuclear Stress Test - Treadmil 07/02/25 R00.2 - Palpitations, R53.83 - Other fatigue Clinical Quality Measures Falls Risk Screening/Assistive Devices Have you fallen in the past year?: No 07/06/25 1256 Date Vamshi RUANO (more content not included)... Normal [facility] Misc LCon 06-01-2025 Order Number [id number] [facility] Comment on above: Order Comment: SEND TO [facility] [id number] bloodroom temp Performed By: #### [id number] ####[address] [place], [place] [address] Test Name HLA-A29 [facility] Comment on above: Order Comment: SEND TO [facility] [id number] bloodroom temp Performed By: #### [id number] ####[facility] [place], [place] [address] MRI ORBIT W/ + W/O CONTRASTo n 05-31-2025 MRI ORBIT W/ + W/O CONTRAST ORIGINAL HISTORY: Right uveitis COMPARISON: No TECHNIQUE: 1. Axial and sagittal T1-weighted images. 2. Axial T2-weighted images. 3. Axial FLAIR images. 4. Axial diffusion-weighted images with ADC map. 5. Axial T2-weighted images with thin cuts through the orbits. 6. Coronal T2-weighted images of the orbits with fat saturation. 7. Coronal T1-weighted images of the orbits. 8. Axial and coronal T1-weighted images of the orbits with fat saturation following uncomplicated administration of intravenous gadolinium contrast. 9. Axial, coronal and sagittal T1-weighted images following uncomplicated administration of intravenous gadolinium contrast. FINDINGS: The study is mildly degraded by motion. The ventricles and sulci are normal in size and configuration. There are no abnormal intra or extra-axial fluid collections. There are a few scattered punctate T2 hyperintensities in the cerebral white matter. There is sellar remodeling and there is an empty sella. Gandara-white matter differentiation is maintained. There is no abnormal restriction of diffusion. There is no abnormal enhancement of the brain or its coverings. There is cataract surgery on the right. The globes are normal in caliber and symmetric. The optic nerves and nerve sheaths are suboptimally visualized but appear within normal limits and symmetric. The extraocular muscles are normal in course and caliber. The intra and extraconal fat is unremarkable in appearance. IMPRESSION: Right cataract surgery, otherwise unremarkable examination of the orbits. Mild volume loss. Mild sellar remodeling and empty sella, at least suggestive of intracranial hypertension. Interpreted by: Nino Sanchez MD Preliminary Report By: Nino Sanchez MD Electronically signed By Nino Sanchez MD Dictated Date: 05/31/2025 12:53:58 PM Prelim Date: 05/31/2025 12:57:13 PM Sign Date: 05/31/2025 12:57:13 PM Ordering Provider: TOBI JARA Normal [facility] LCon 05-31-2025 [facility] Test Result COMMENT Normal [facility] Comment on above: Order Comment: SEND TO [facility] [id number] bloodroom temp Result Comment: Test Ordered: [id number] HLA-A29 Uveitis HLA-A Comment 2Q A*24:02:01G HLA-A Comment 2Q A*33:01:01G This specimen is NEGATIVE for the HLA-A*29 allele. 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 The absence of HLA A*29 alone is not sufficient to rule out a diagnosis of Birdshot Chorioretinopathy even though greater than 95% of patients diagnosed with BSCR carry the human leukocyte antigen (HLA) A*29 allele of the major histocompatibility complex (MHC). Many individuals with HLA A*29 do not have the disease and some patients with the disease do not have HLA A*29. References: 1. Loren RB, Taylor KK, Pardeep S, Green WR, Verónica AE. Birdshot retinochoroidopathy associated with HLA-A29 antigen and immune responsiveness to retinal S-antigen. [employer]. 1982. 94(2):147-158. 2. Janna RD, Paul R, Marisa M, Dakota EF, Meredith DW, Hillary PJ, Govind RF, Arden NA, Rony GN. Human leukocyte antigen A29 subtypes associated with birdshot choroidopathy. [employer]. 2004. 138(4):631-634 HLA allele interpretation for all loci based on IMGT/HLA database version 3.58.0 This test was developed and its performance characteristics determined by [facility]. It has not been cleared or approved by the Food and Drug Administration. The FDA has determined that such clearance or approval is not necessary. HLA Lab CLIA ID Number [id number] HISTOCOMPATIBILITY SECTION DIRECTOR: Lorena Ross, PhD, F([facility]) HLA Methodology Comment 2Q HLA results were obtained using "Next Generation Sequencing" (NGS). Supplemental procedures based on sequence based typing (SBT) and/or sequence specific oligonucleotide probes (SSOP) may be used as needed to obtain the required resolution. If you have questions, please call HLA customer service at or email at [email or web address]. Performed At: [facility] [id number] Justin Fair PhD Ph:[phone] Performed At: 2Q [address] [id number] Zev Sykes PhD Ph:[phone] Performed By: #### 9 [address] ####Angelica [place] [place] [address] QUANTTBon 05-27-2025 QFT Criteria Comment Normal [facility] Comment on above: Result Comment: QuantiFERON-TB Gold Plus is a qualitative indirect test for M tuberculosis infection (including disease) and is intended for use in conjunction with risk assessment, radiography, and other medical and diagnostic evaluations. The QuantiFERON-TB Gold Plus result is determined by subtracting the Nil value from either TB antigen (Ag) value. The Mitogen tube serves as a control for the test. Performed By: #### A DIFF, 973643, CRP, ANEU, 982207, ESR, GFR, 468149, 477267, BMP, CBC ####Angelica [address] [place] [address]#### VARIS, FTA ####Angelica [address] [place] [address] QFT Mitogen Value >10.00 Normal [facility] Comment on above: Performed By: #### A DIFF, 355702, CRP, ANEU, 090097, ESR, GFR, 222995, 707384, BMP, CBC ####[place] [address]#### VARIS, FTA ####[place] [address] QFT Nil Value 0.04 IU/mL Normal [facility] Comment on above: Performed By: #### A DIFF, 354961, CRP, ANEU, 084699, ESR, GFR, 062504, 518697, BMP, CBC ####[place] [address]#### VARIS, FTA ####[place] [address] QFT TB1 Ag Value 0.05 IU/mL Normal [facility] Comment on above: Performed By: #### A DIFF, 560717, CRP, ANEU, 635714, ESR, GFR, 130576, 364491, BMP, CBC ####[place] [address]#### VARIS, FTA ####[place] [address] QFT TB2 Ag Value 0.03 IU/mL Normal [facility] Comment on above: Performed By: #### A DIFF, 885336, CRP, ANEU, 269837, ESR, GFR, 878185, 983158, BMP, CBC ####[place] [address]#### VARIS, FTA ####[place] [address] QFT-TB Gold Plus Clt Inc Negative Normal Negative [facility] Comment on above: Result Comment: No r esponse to M tuberculosis antigens detected. Infection with M tuberculosis is unlikely, but high risk individuals should be considered for additional testing (ATS/IDSA/CDC Clinical Practice Guidelines, 2017). The reference range is an Antigen minus Nil result of <0.35 IU/mL. The specimen received for QuantiFERON testing was incubated by the ordering institution. Specific procedures outlined in our Directory of Services and in the package insert for the QuantiFERON Gold (In Tube) test must be followed to enable for proper stimulation of cells for the production of interferon gamma. Chemiluminescence immunoassay methodology Performed At: [facility] [id number] [place], [place] [id number] Justin Fair PhD Ph:[phone] Performed By: #### A DIFF, 812013, CRP, ANEU, 634085, ESR, GFR, 938939, 358050, BMP, CBC ####[place] [address]#### VARIS, FTA ####[place] [address] FTAon 05-26-2025 FTA-ABS Non-Reactive Normal Non-Reactiv e [facility] Comment on above: Performed By: #### A DIFF, 414992, CRP, ANEU, 865879, ESR, GFR, 360220, 004581, BMP, CBC ####[place] [address]#### VARIS, FTA ####[place] [address] VARISon 05-26-[address] Positive Normal [facility] Comment on above: Result Comment: INTE RPRETATION OF VARICELLA IMMUNE STATUS IgG BY EIA: Negative: No detectable VZV IgG antibody. Positive: VZV IgG antibody Detected. If clinically indicated, order Varicella IgM to rule out recent infection. Equivocal: Equivocal for antibodies to VZV. Suggest repeat testing in 10-14 days. Performed By: #### A DIFF, 805394, CRP, ANEU, 097602, ESR, GFR, 391048, 893054, BMP, CBC ####[place] [address]#### VARIS, FTA ####[place] [address] ACEon 05-25-2025 PEDRITO 62 U/L Normal 14- [facility] Comment on above: Result Comment: Perf ormed At: [facility] [address] [place], [place] [id number] Justin Fair PhD Ph:[phone] Performed By: #### A DIFF, 461426, CRP, ANEU, 880112, ESR, GFR, 384873, 112507, BMP, CBC ####[facility] [place], [place] [address]#### VARIS, FTA ####[facility] [place] [address] CVVS21ib 05-25-2025 HSV 1 IgG Type Spec Non-Reactive Normal Non Reactive [facility] Comment on above: Result Comment: Pl ease note reference interval change HSV-1 IgG testing performed using the Ave Elecsys HSV-1 IgG assay. Performed By: #### A DIFF, 542609, CRP, ANEU, 074644, ESR, GFR, 484892, 274276, BMP, CBC #### [place] [address] [place] [address] #### VARIS, FTA #### [place] [address] HSV 2 IgG Type Spec Non-Reactive Normal Non Reactive [facility] Comment on above: Result Comment: Pl ease note reference interval change Current guidelines and recommendations do not recommend routine screening for HSV-2 in asymptomatic individuals, including those that are . The detection of HSV-2 IgG antibodies in a single sample indicates previous exposure to HSV-2 but does not give information as to the site of HSV infection or the timing of exposure. The predictive value of positive and negative results depends on the population's prevalence and the pretest likelihood of HSV-2. HSV-2 IgG testing performed using the Ave [employer] HSV-2 IgG assay. Performed At: [address] [id number] Justin Fair PhD Ph:[phone] Performed By: #### A DIFF, 175970, CRP, ANEU, 084498, ESR, GFR, 055239, 514500, BMP, CBC #### [place] [address] [place] [address] #### VARIS, FTA #### [facility] [address] [place] [address] LMERLYon 05-25-2025 Lyme Total Antibody DYLAN Negative Normal Negative [facility] Comment on above: Result Comment: Lyme antibodies not detected. Reflex testing is not indicated. No laboratory evidence of infection with B. burgdorferi (Lyme disease). Negative results may occur in patients recently infected (less than or equal to 14 days) with B. burgdorferi. If recent infection is suspected, repeat testing on a new sample collected in 7 to 14 days is recommended. Performed At: [facility] [id number] Justin Fair PhD Ph:[phone] Performed By: #### A DIFF, 206406, CRP, ANEU, 851853, ESR, GFR, 081570, 924409, BMP, CBC ####[place] [address]#### VARIS, FTA ####[address] [address] .Auto Diffon 05-24-2025 Basophil, Absolute 0.0 10 3/mcL Normal 0.0-0.3 [facility] Comment on above: Performed By: #### A DIFF, 506371, CRP, ANEU, 517925, ESR, GFR, 633162, 564417, BMP, CBC #### [place] [address] #### VARIS, FTA #### [address] [address] Basophils/100 WBC (Bld) 0.9 % Normal 0.0-2.5 [facility] Comment on above: Performed By: #### A DIFF, 681922, CRP, ANEU, 215280, ESR, GFR, 307948, 469798, BMP, CBC #### [place] [address] #### VARIS, FTA #### [place] [address] Eosinophil, Absolute 0.2 10 3/mcL Normal 0.0-0.7 [facility] Comment on above: Performed By: #### A DIFF, 277856, CRP, ANEU, 905151, ESR, GFR, 703784, 172703, BMP, CBC #### [place] [address] #### VARIS, FTA #### [address] [address] Eosinophils/100 WBC (Bld) 3.9 % Normal 0.0-6.0 [facility] Comment on above: Performed By: #### A DIFF, 803219, CRP, ANEU, 900297, ESR, GFR, 133327, 784244, BMP, CBC #### [address] [address] #### VARIS, FTA #### [address] [address] Lymphocyte, Absolute 2.2 10 3/mcL Normal 0.9-4.3 [facility] Comment on above: Performed By: #### A DIFF, 549683, CRP, ANEU, 956811, ESR, GFR, 539649, 170234, BMP, CBC #### [address] [address] #### VARIS, FTA #### [address] [address] Lymphocytes/100 WBC (Bld) 41.9 % High 20.0-40.0 [facility] Comment on above: Performed By: #### A DIFF, 327388, CRP, ANEU, 872421, ESR, GFR, 301596, 334660, BMP, CBC #### [address] [address] #### VARIS, FTA #### [address] [address] Monocyte, Absolute 0.4 10 3/mcL Normal 0.1-1.4 [facility] Comment on above: Performed By: #### A DIFF, 593394, CRP, ANEU, 995083, ESR, GFR, 305895, 536310, BMP, CBC #### [place] [address] #### VARIS, FTA #### [address] [address] Monocytes/100 WBC (Bld) 8.5 % Normal 2.0-13.0 [facility] Comment on above: Performed By: #### A DIFF, 674743, CRP, ANEU, 342704, ESR, GFR, 141886, 836188, BMP, CBC #### [address] [address] #### VARIS, FTA #### [address] [address] Neutrophils/100 WBC (Bld) 44.8 % Low 50.0-75.0 [facility] Comment on above: Performed By: #### A DIFF, 523962, CRP, ANEU, 133718, ESR, GFR, 950874, 200996, BMP, CBC #### [address] [address] #### VARIS, FTA #### [address] [address] .GFRon 05-24-2025 Estimated Glomerular Filtration Rate 57 ml/min/1.73sqm Normal [facility] Comment on above: Result Comment: Stages of Chronic Kidney Disease (CKD) Stage Description eGFR(ml/min/1.73 sq.m.) CKD 1 Normal kidney function or >=90 normal kindney function with possible kidney damage (ex. Proteinuria) CKD 2 Kidney damage with mild loss 60-89 of kidney function CKD 3a Mild to moderate loss of kidney 45-59 function CKD 3b Moderate to severe loss of 30-44 of kindey function CKD 4 Severe loss of kidney function 15-29 CKD 5 Kidney failure <15 Note: (go live 2024) the eGFR calculation was updated to the 2020 CKD-EPI creatinine equation without a race factor to calculate the eGFR results. Performed By: #### A DIFF, 637620, CRP, ANEU, 586849, ESR, GFR, 058105, 452807, BMP, CBC #### [address] [address] #### VARIS, FTA #### [address] [address] .NEUABSon 05-24-2025 Neutrophil, Absolute 2.3 10 3/mcL Normal 2.3-8.1 [facility] Comment on above: Performed By: #### A DIFF, 588650, CRP, ANEU, 657605, ESR, GFR, 782403, 112838, BMP, CBC #### [address] [address] #### VARIS, FTA #### [address] [address] BMPon 05-24-2025 BUN/Creatinine Ratio 18 ratio Normal 7-27 [facility] Comment on above: Performed By: #### A DIFF, 699670, CRP, ANEU, 987122, ESR, GFR, 910652, 287597, BMP, CBC #### [address] [address] #### VARIS, FTA #### [address] [address] Calcium [Mass/Vol] 8.7 mg/dL Normal 8.4-10.2 [facility] Comment on above: Performed By: #### A DIFF, 561082, CRP, ANEU, 698799, ESR, GFR, 690085, 584121, BMP, CBC #### [address] [address] #### VARIS, FTA #### [address] [address] Chloride [Moles/Vol] 106 mmol/L Normal 98-107 [facility] Comment on above: Performed By: #### A DIFF, 491343, CRP, ANEU, 976433, ESR, GFR, 425802, 846485, BMP, CBC #### [address] [address] #### VARIS, FTA #### [address] [address] CO2 [Moles/Vol] 23 mmol/L Normal 23-31 [facility] Comment on above: Performed By: #### A DIFF, 498519, CRP, ANEU, 279074, ESR, GFR, 833170, 159097, BMP, CBC #### [place] [address] #### VARIS, FTA #### [address] [address] Creatinine [Mass/Vol] 1.01 mg/dL High 0.51-0.95 [facility] Comment on above: Performed By: #### A DIFF, 442356, CRP, ANEU, 511634, ESR, GFR, 520894, 129875, BMP, CBC #### [address] [address] #### VARIS, FTA #### [address] [address] Electrolyte Balance 10.0 mEq/L Normal 4.0-15.0 [facility] Comment on above: Performed By: #### A DIFF, 305384, CRP, ANEU, 039319, ESR, GFR, 448882, 568400, BMP, CBC #### [address] [address] #### VARIS, FTA #### [place] [address] Glucose [Mass/Vol] 100 mg/dL Normal 83-110 [facility] Comment on above: Performed By: #### A DIFF, 183722, CRP, ANEU, 060658, ESR, GFR, 793056, 502039, BMP, CBC #### [address] [address] #### VARIS, FTA #### [address] [address] Potassium [Moles/Vol] 3.6 mmol/L Normal 3.5-5.1 [facility] Comment on above: Performed By: #### A DIFF, 965959, CRP, ANEU, 752097, ESR, GFR, 954151, 471551, BMP, CBC #### [place] [address] #### VARIS, FTA #### [address] [address] Sodium [Moles/Vol] 139 mmol/L Normal 136-145 [facility] Comment on above: Performed By: #### A DIFF, 051879, CRP, ANEU, 236097, ESR, GFR, 829768, 395106, BMP, CBC #### [address] [address] #### VARIS, FTA #### [address] [address] Urea nitrogen [Mass/Vol] 18 mg/dL Normal 7-18 [facility] Comment on above: Performed By: #### A DIFF, 445211, CRP, ANEU, 800148, ESR, GFR, 915882, 367134, BMP, CBC #### [place] [address] #### VARIS, FTA #### [place] [address] CBCon 05-24-2025 Erythrocyte distribution width (RBC) [Ratio] 13.0 % Normal 11.5-15.5 [facility] Comment on above: Performed By: #### A DIFF, 400529, CRP, ANEU, 109640, ESR, GFR, 204250, 148481, BMP, CBC #### [place] [address] #### VARIS, FTA #### [place] [address] Hematocrit (Bld) [Volume fraction] 39.7 % Normal 34.0-46.0 [facility] Comment on above: Performed By: #### A DIFF, 798979, CRP, ANEU, 351083, ESR, GFR, 639577, 743973, BMP, CBC #### [address] [address] #### VARIS, FTA #### [place] [address] Hgb 13.2 G/dL Normal 12.0-16.0 [facility] Comment on above: Performed By: #### A DIFF, 618614, CRP, ANEU, 779138, ESR, GFR, 876527, 688915, BMP, CBC #### [place] [address] #### VARIS, FTA #### [place] [address] MCH (RBC) [Entitic mass] 32.5 pg Normal 27.0-33.0 [facility] Comment on above: Performed By: #### A DIFF, 190739, CRP, ANEU, 759011, ESR, GFR, 859443, 472932, BMP, CBC #### [place] [address] #### VARIS, FTA #### [place] [address] MCHC 33.2 G/dL Normal 32.0-36.0 [facility] Comment on above: Performed By: #### A DIFF, 919776, CRP, ANEU, 326334, ESR, GFR, 585387, 062800, BMP, CBC #### [place] [address] #### VARIS, FTA #### [place] [address] MCV (RBC) [Entitic vol] 97.9 fL Normal 80.0-99.0 [facility] Comment on above: Performed By: #### A DIFF, 166872, CRP, ANEU, 546008, ESR, GFR, 586429, 269953, BMP, CBC #### [place] [address] #### VARIS, FTA #### [place] [address] Platelet 261 10 3/mcL Normal 150-450 [facility] Comment on above: Performed By: #### A DIFF, 436324, CRP, ANEU, 501014, ESR, GFR, 111670, 136684, BMP, CBC #### [place] [address] #### VARIS, FTA #### [place] [address] Platelet mean volume (Bld) [Entitic vol] 8.1 fL Normal 6.6-10.5 [facility] Comment on above: Performed By: #### A DIFF, 427179, CRP, ANEU, 332975, ESR, GFR, 457604, 544216, BMP, CBC #### [place] [address] #### VARIS, FTA #### [place] [address] RBC 4.06 10 6/mcL Low 4.10-5.30 [facility] Comment on above: Performed By: #### A DIFF, 224541, CRP, ANEU, 820318, ESR, GFR, 478397, 735518, BMP, CBC #### [place] [address] #### VARIS, FTA #### [place] [address] WBC 5.2 10 3/mcL Normal 4.5-10.8 [facility] Comment on above: Performed By: #### A DIFF, 291870, CRP, ANEU, 402503, ESR, GFR, 593787, 004319, BMP, CBC #### [place] [address] #### VARIS, FTA #### [place] [address] CRPon 05-24-2025 C-Reactive Protein 0.2 mg/dL Normal 0.0-0.3 [facility] Comment on above: Performed By: #### A DIFF, 298213, CRP, ANEU, 203315, ESR, GFR, 440853, 487279, BMP, CBC #### [place] [address] #### VARIS, FTA #### [place] [address] ESRon 05-24-2025 Erythrocyte Sed Rate 1 mm/hr Normal 0-30 [facility] Comment on above: Performed By: #### A DIFF, 826363, CRP, ANEU, 442759, ESR, GFR, 960831, 829813, BMP, CBC #### [place] [address] #### VARIS, FTA #### [place] [address] LABORATORYOrdered By: SYSTEM SYSTEM on 05-24-2025 Basophils (Bld) [#/Vol] 0.0 103/mcL Normal 0.0 - 0.3 10^3/mcL AO Workflow SS Basophils/100 WBC (Bld) 0.9 % Normal 0.0 - 2.5 % AO Workflow SS Calcium [Mass/Vol] 8.7 mg/dL Normal 8.4 - 10. 2 mg/dL AO ADM SS Chloride [Moles/Vol] 106 mmol/L Normal 98 - 10 7 mmol/L AO ADM SS CO2 [Moles/Vol] 23 mmol/L Normal 23 - 31 mmol/L AO ADM SS Creatinine [Mass/Vol] 1.01 mg/dL High 0.51 - 0.95 mg/dL AO ADM SS CRP [Mass/Vol] 0.2 mg/dL Normal 0.0 - 0.3 mg/dL AO ADM SS Electrolyte Balance 10.0 mEq/L Normal 4.0 - 15 .0 mEq/L AO ADM SS Eosinophil, Absolute 0.2 103/mcL Normal 0.0 - 0 .7 10^3/mcL AO Workflow SS Eosinophils/100 WBC (Bld) 3.9 % Normal 0.0 - 6.0 % AO Workflow SS Erythrocyte distribution width (RBC) [Ratio] 13.0 % Normal 11.5 - 15.5 % AO Workflow SS Estimated Glomerular Filtration Rate 57 ml/min/1.73sqm Invalid Interpretation Code AO Chemistry S Comment on above: Interpretive Data: Stages of Chronic Kidney Disease (CKD) Stage Description eGFR(ml/min/1.73 sq.m.) CKD 1 Normal kidney function or >=90 normal kindney function with possible kidney damage (ex. Proteinuria) CKD 2 Kidney damage with mild loss 60-89 of kidney function CKD 3a Mild to moderate loss of kidney 45-59 function CKD 3b Moderate to severe loss of 30-44 of kindey function CKD 4 Severe loss of kidney function 15-29 CKD 5 Kidney failure <15 Note: (go live 2024) the eGFR calculation was updated to the 2020 CKD-EPI creatinine equation without a race factor to calculate the eGFR results. Glucose [Mass/Vol] 100 mg/dL Normal 83 - 110 mg/dL AO ADM SS Hematocrit (Bld) [Volume fraction] 39.7 % Normal 34.0 - 46.0 % AO Workflow SS Hemoglobin (Bld) [Mass/Vol] 13.2 G/dL Normal 12.0 - 16.0 G/dL AO Workflow SS Lymphocytes (Bld) [#/Vol] 2.2 103/mcL Normal 0.9 - 4.3 10^3/mcL AO Workflow SS Lymphocytes/100 WBC (Bld) 41.9 % High 20.0 - 40.0 % AO Workflow SS MCH (RBC) [Entitic mass] 32.5 pg Normal 27.0 - 33.0 pg AO Workflow SS MCHC 33.2 G/dL Normal 32.0 - 36.0 G/dL AO Workflow SS MCV (RBC) [Entitic vol] 97.9 fL Normal 80.0 - 99.0 fL AO Workflow SS Monocytes (Bld) [#/Vol] 0.4 103/mcL Normal 0.1 - 1.4 10^3/mcL AO Workflow SS Monocytes/100 WBC (Bld) 8.5 % Normal 2.0 - 13.0 % AO Workflow SS Neutrophils (Bld) [#/Vol] 2.3 103/mcL Normal 2.3 - 8.1 10^3/mcL AO Workflow SS Neutrophils/100 WBC (Bld) 44.8 % Low 50.0 - 75.0 % AO Workflow SS Platelet mean volume (Bld) [Entitic vol] 8.1 fL Normal 6.6 - 10.5 fL AO Workflow SS Platelets (Bld) [#/Vol] 261 103/mcL Normal 150 - 450 10^3/mcL AO Workflow SS Potassium [Moles/Vol] 3.6 mmol/L Normal 3.5 - 5.1 mmol/L AO ADM SS RBC (Bld) [#/Vol] 4.06 106/mcL Low 4.10 - 5.3 0 10^6/mcL AO Workflow SS Sodium [Moles/Vol] 139 mmol/L Normal 136 - 145 mmol/L AO ADM SS Urea nitrogen [Mass/Vol] 18 mg/dL Normal 7 - 18 mg/dL AO ADM SS Urea nitrogen/Creatinine [Mass ratio] 18 ratio Normal 7 - 27 ratio AO ADM SS WBC (Bld) [#/Vol] 5.2 103/mcL Normal 4.5 - 10.8 10^3/mcL AO Workflow SS LABORATORYOrdered By: Laureenmadiha bud Cordova on 05-24-2025 ESR Photometric method (Bld) [Velocity] 1 mm/hr Normal 0 - 30 mm/hr AO Man Heme SS XR CHEST 2 VIEWSon XR CHEST 2 VIEWS ORIGINAL EXAMINATION: TWO XRAY VIEWS OF THE CHEST TECHNIQUE: CHEST PA and LATERAL COMPARISON: Chest x-ray 10/10/2017 HISTORY: ORDERING SYSTEM PROVIDED HISTORY: Reason for Exam: Panuveitis right eye FINDINGS: The heart is not enlarged. The mediastinal silhouette is unremarkable. No consolidation. No vascular congestion. No pleural effusion. No pneumothorax. No aggressive osseous lesions. Surgical clips in the right upper quadrant. IMPRESSION: No acute radiographic finding. I have personally reviewed the images of this examination and agree with the resident's findings and interpretation. Interpreted by: Hardik Brown MD Preliminary Report By: Hunter Houston Electronically signed By Hardik Brown MD Dictated Date: 05/24/2025 1:23:47 PM Prelim Date: 05/24/2025 4:08:37 PM Sign Date: 05/24/2025 4:08:37 PM Ordering Provider: TOBI Cooper [facility] Bone density reportOrdered B y: Andrew Gee on 04-22-2025 Study report Skeletal system DXA [facility] Imaging Services [address] [place] [id number] Dexa Bone Density Study MR#: [id number] Acct: [id number] Name: DARA QUESADA Rep #: [id number] : 1945 F 80 From: Ashutosh Gee MD PCP: Dr. Keyonna Gonzalez DO Status: RE G CLI Study:Dexa Bone Density Study Date of Exam: 04/21/25 Exam# [id number] Ordering Dr: Do teresa Gonzalez DO PROCEDURE: DEXA BONE DENSITY STUDY 04/21/2025 REASON FOR EXAM: OSTEOPOROSIS F, age 80 y/o . Postmenopausal. TECHNIQUE: DEXA BONE DENSITY STUDY COMPARISON: Prior study dated January 08, 2023. FINDINGS: BMD and T-SCORES Lumbar spine: 0.822 g/cm2, T-score -1.8 Levels: L1 through L4 Change from prior: Improvement of 6.7%. Left femoral neck: 0.657 g/cm2, T-score -1.7 Femoral neck comparison data not recommended for monitoring change. Left total hip: 0.790 g/cm2, T-score -1.2 Change from prior: Loss of 1.8%. Right femoral neck: 0.649 g/cm2, T-score -1.8 Femoral neck comparison data not recommended for monitoring change. Right total hip: 0.763 g/cm2, T-score -1.5 Change from prior: Loss of 5.1%. The World Health Organization has defined the following categories based on bonedensity: Normal bone density: T-score equal to or greater than -1.0 Osteopenia: T-score between -1.0 and -2.5 Osteoporosis: T-score equal to or less than -2.5 The patient does meet the pharmacological treatment recommendations for prevention of osteoporosis. BD/Dexa Bone Density Study IMPRESSION: OSTEOPENIA. Recommend follow-up as clinically warranted. Reading Location: [id number] CC: Dr. Keyonna Gonzalez DO ~ Respiratory Care Assistant: Signed [facility] Dexa Bone Density Studyon Dexa Bone Density Study [facility] Imaging Services [address] [place] [id number] Dexa Bone Density Study MR#: [id number] Acct: [id number] Name: DARA QUESADA Rep #: [id number] : 1945 F 80 From: Andrew khan MD PCP: Dr. Keyonna Gonzalez DO Status: REG CLI Study: Dexa Bone Density Study Date of Exam: 04/21/25 Exam# [id number] Ordering Dr: Keyonna Gonzalez DO PROCEDURE: DEXA BONE DENSITY STUDY 04/21/2025 REASON FOR EXAM: OSTEOPOROSIS F, age 80 y/o . Postmenopausal. TECHNIQUE: DEXA BONE DENSITY STUDY COMPARISON: Prior study dated January 08, 2023. FINDINGS: BMD and T-SCORES Lumbar spine: 0.822 g/cm2, T-score -1.8 Levels: L1 through L4 Change from prior: Improvement of 6.7%. Left femoral neck: 0.657 g/cm2, T-score -1.7 Femoral neck comparison data not recommended for monitoring change. Left total hip: 0.790 g/cm2, T-score -1.2 Change from prior: Loss of 1.8%. Right femoral neck: 0.649 g/cm2, T-score -1.8 Femoral neck comparison data not recommended for monitoring change. Right total hip: 0.763 g/cm2, T-score -1.5 Change from prior: Loss of 5.1%. The World Health Organization has defined the following categories based on bone density: Normal bone density: T-score equal to or greater than -1.0 Osteopenia: T-score between -1.0 and -2.5 Osteoporosis: T-score equal to or less than -2.5 The patient does meet the pharmacological treatment recommendations for prevention of osteoporosis. BD/Dexa Bone Density Study IMPRESSION: OSTEOPENIA. Recommend follow-up as clinically warranted. Reading Location: [id number] CC: Dr. Keyonna Gonzalez DO Respiratory Care Assistant: Signed Normal [facility] Breast imaging reportOrdered By: Brooke Farmer on 04-13-2025 Study report [facility] Imaging Services [address] [place] [address] [id number] SCRN MAMM (CAD)W/TAYLER BILAT MR#: [id number] Acct: [id number] Name: DARA QUESADA Rep #: [id number] : 1945 F 80 From: Steven Blum MD PCP: Dr. Keyonna Gonzalez DO Status: RE G CLI Study:SCRN MAMM (CAD)W/TAYLER BILAT Date of Exa m: 04/13/25 Exam# [id number] Ordering Dr: Do teresa Gonzalez DO EXAM: [...] be mailed to the patient. Reading Location: [id number] CC: Dr. Keyonna Gonzalez DO ~ Respiratory Care Assistant: Signed [facility] SCRN MAMM (CAD)W/TAYLER BILATo n 04-13-2025 SCRN MAMM (CAD)W/TAYLER BILAT [facility] Imaging Services [address] [place] [id number] SCRN MAMM (CAD)W/TAYLER BILAT MR#: [id number] Acct: [id number] Name: DARA QUESADA Rep #: [id number] : 1945 F 80 From: Brooke Steele i, MD PCP: Dr. Keyonna Gonzalez DO Status: [facility] CLI Study: SCRN MAMM (CAD)W/TAYLER BILAT Date of Exam: 03/28 05/21 Exam# [id number] Ordering Dr: Keyonna Gonzalez DO EXAM: SCRN [...] be mailed to the patient. Reading Location: [id number] CC: Dr. Keyonna Gonzalez DO Respiratory Care Assistant: Signed Normal [facility] Internal Medicine Office Vis iton 03-23-2025 Internal Medicine Office Visit [facility] [address] [place], [place] [address] OFFICE VISIT Date of Service: 03/23/25 MR#: [id number] Acct: [id number] Name: DARA QUESADA Rep #: [id number] : 1945 Provider: Dr. Keyonna gamboa DO Age/Sex: 80/F Location[place] [facility] [place] Status: Signed Intake Vital Signs 09/18/24 16:04 [...] Intake Visit Reasons: fu Chief Complaint: fu Bb Shot Packer Required: No Accompanied by: Self Is patient [...] sore throat (more content not included)... Normal [facility] Urgent Care Visit Reporton 1 11-18-2023 Urgent Care Visit Report [facility] [address], [address] [place] [address] OFFICE VISIT Date of Service: 09/18/24 MR#: [id number] Acct: [id number] Name: DARA QUESADA Rep #: [id number] : 1945 Provider: BINDU Antonio Age/Sex: 79/F Location: [facility] [place] Status: Signed Intake Vital Signs 12/03/23 09:53 [...] EAR PAIN , HEADACHE Chief Complaint: Vertigo/headache Bb Shot Packer Required: No Is patient in pain?: Yes [...] vertigo at that time to an infection. [facility] Medical History (Updated 09/18/24 @ 17:18 [...] worst headache (more content not included)... Normal [facility] Absolute lymphocyte countOrd ered By: Keyonna Carlos on 12-03-2023 Lymphocytes Auto (Unsp spec) [#/Vol] 2.04 10*3/uL 0.83-4.51 [facility] Automated lymphocyte count a s percentage of total leukocytesOrdered By: Keyonna Gonzalez on 12-03-2023 Lymphocytes/100 WBC Auto (Unsp spec) 36.8 % 19-41 [facility] Basophil percentageOrdered B y: Keyonna Gonzalez on 12-03-2023 Basophils/100 WBC (Bld) 0.9 % 0-1 [facility] Bilirubin [Mass/Vol] 0.60 mg/dL 0.20-1.00 [facility] Comment on above: For patients on eltr ombopag therapy, use of Dimension [place] TBIL is not recommended. Chloride [Moles/Vol] 105 mmol/L 98-107 [facility] Eosinophils/100 WBC (Bld) 2.5 % 0-5 [facility] Glucose [Mass/Vol] 99 mg/dL 74-106 [facility] Hemoglobin (Bld) [Mass/Vol] 12.7 g/dL 12.0-15.0 [facility] Monocytes/100 WBC (Bld) 13.4 % 0-10 [facility] Neutrophils (Bld) [#/Vol] 2.5 10*3/uL 2.0-7.7 [facility] Neutrophils/100 WBC (Bld) 45.9 % 47-70 [facility] Potassium [Moles/Vol] 3.9 mmol/L 3.5-5.1 [facility] Protein [Mass/Vol] 6.7 g/dL 6.4-8.2 [facility] Sodium [Moles/Vol] 135 mmol/L 136-145 [facility] WBC (Bld) [#/Vol] 5.5 10*3/uL 4.4-11.0 [facility] Determination of erythrocyte mean corpuscular volume (MCV)Ordered By: Keyonna Gonzalez on 12-03-2023 MCV (RBC) [Entitic vol] 96.0 fL 81-99 [facility] Erythrocyte distribution wid th ratioOrdered By: Keyonna Gonzalez on 12-03-2023 Erythrocyte distribution width (RBC) [Ratio] 12.5 % 11.6-14.6 [facility] Erythrocyte distribution wid th standard deviationOrdered By: Keyonnaarturo Gonzalez on 12-03-2023 Erythrocyte distribution width (RBC) [Entitic vol] 44.4 fL 35.1-43.9 [facility] Hematocrit Auto (Bld) [Volum e fraction]Ordered By: Keyonna Gonzalez on 12-03-2023 Hematocrit (Bld) [Volume fraction] 38.9 % 37-47 [facility] Immature granulocytes/100 WB C Auto (Bld)Ordered By: Keyonna Gonzalez on 12-03-2023 Immature granulocytes/100 WBC (Bld) 0.500 % 0.0-0.9 [facility] Comment on above: IG% - Immature Granu locytes (promyelocytes, myelocytes and metamyelocytes) > 1% indicates that a LEFT SHIFT is Present. Laboratory - Chemistry and C hemistry - challengeOrdered By: Keyonna Gonzalez on 12-03-2023 Albumin/Globulin [Mass ratio] 1.1 {ratio} 0.9-2.4 [facility] ALP [Catalytic activity/Vol] 63 U/L 45-117 [facility] ALT [Catalytic activity/Vol] 21 U/L 13-56 [facility] CO2 [Moles/Vol] 28.0 mmol/L 21.0-32.0 [facility] Globulin (S) [Mass/Vol] 3.2 g/dL 2.2-4.2 [facility] Urea nitrogen/Creatinine [Mass ratio] 20.3 mg/mg 10-20 [facility] Laboratory - Hematology and Cell countsOrdered By: Keyonna Gonzalez on 12-03-2023 MCH (RBC) [Entitic mass] 31.4 pg 27.0-32.0 [facility] MCHC (RBC) [Mass/Vol] 32.6 g/dL 32-36 [facility] Nucleated RBC/100 WBC (Bld) [Ratio] 0 % 0-5 [facility] Platelet mean volume (Bld) [Entitic vol] 10.3 fL 6.2-12.0 [facility] Platelets (Bld) [#/Vol] 256 10*3/uL 150-450 [facility] No Panel InformationOrdered By: Keyonna Gonzalez on 12-03-2023 Estimated GFR (MDRD) Amer 85 mL/min >60 [facility] Comment on above: GFR Calc Estimated GFR (MDRD) Non-Af Amer 70 mL/min >60 [facility] Comment on above: Non- GFR Calc RBC Auto (Bld) [#/Vol]Ordere d By: Keyonna Gonzalez on 12-03-2023 RBC (Bld) [#/Vol] 4.05 10*6/uL 4.2-5.4 [facility] Serum or plasma calcium cam urement (mass/volume)Ordered By: Keyonna Gonzalez on 12-03-2023 Calcium [Mass/Vol] 9.3 mg/dL 8.5-10.1 [facility] Serum or plasma creatinine m easurement (mass/volume)Ordered By: Keyonna Gonzalez on 12-03-2023 Creatinine [Mass/Vol] 0.84 mg/dL 0.55-1.02 [facility] Comment on above: The validity of the calculated GFR & GFRAA in patients over 70 years has not been determined. Clinical correlation is essential. Serum or plasma urea nitroge n measurement (mass/volume)Ordered By: Keyonna Gonzalez on 12-03-2023 Urea nitrogen [Mass/Vol] 17 mg/dL 7-18 [facility] Thin prep Papanicolaou smear with manual screeningOrdered By: Keyonna Gonzalez on 12-03-2023 Thin prep Papanicolaou smear with manual screening 3.5 g/dL 3.2-5.0 [facility] Thin prep Papanicolaou smear with manual screening 14 U/L 15-37 [facility] Thin prep Papanicolaou smear with manual screening 2 5-15 [facility] Absolute lymphocyte countOrd ered By: Dr. Gonzalez on 11-28-2022 Lymphocytes Auto (Unsp spec) [#/Vol] 2.23 10*3/uL 0.83-4.51 [facility] Basophil percentageOrdered B y: Dr. Gonzalez on 11-28-2022 Basophils/100 WBC (Bld) 0.9 % 0-1 [facility] Bilirubin [Mass/Vol] 0.60 mg/dL 0.20-1.00 [facility] Comment on above: For patients on eltr ombopag therapy, use of Dimension [place] TBIL is not recommended. Chloride [Moles/Vol] 107 mmol/L 98-107 [facility] Cholesterol [Mass/Vol] 221 mg/dL <200 [facility] Comment on above: <200 mg/dL Desirable 200-240 mg/dL Borderline >240 mg/dL High Risk Eosinophils/100 WBC (Bld) 2.3 % 0-5 [facility] Glucose [Mass/Vol] 99 mg/dL 74-106 [facility] Neutrophils (Bld) [#/Vol] 2.7 10*3/uL 2.0-7.7 [facility] Neutrophils/100 WBC (Bld) 47.9 % 47-70 [facility] Potassium [Moles/Vol] 3.9 mmol/L 3.5-5.1 [facility] Protein [Mass/Vol] 6.7 g/dL 6.4-8.2 [facility] Sodium [Moles/Vol] 142 mmol/L 136-145 [facility] Triglyceride [Mass/Vol] 170 mg/dL <199 [facility] Comment on above: The drugs N-Acetylcy steine and Metamizole may falsely depress this assay.Serum Triglycerides Reference Interval Normal <150 mg/dL Borderline high 150 - 199 mg/dL High 200 - 499 mg/dL Very High > or = 500 mg/dL WBC (Bld) [#/Vol] 5.6 10*3/uL 4.4-11.0 [facility] Blood erythrocytes count (nu mber/volume)Ordered By: Dr. Gonzalez on 11-28-2022 RBC (Bld) [#/Vol] 4.05 10*6/uL 4.2-5.4 [facility] Blood hemoglobin measurement (mass/volume)Ordered By: Dr. Gonzalez on 11-28-2022 Hemoglobin (Bld) [Mass/Vol] 13.2 g/dL 12.0-15.0 [facility] Blood lymphocytes/100 leukoc ytesOrdered By: Dr. Gonzalez on 11-28-2022 Lymphocytes/100 WBC (Bld) 39.9 % 19-41 [facility] Blood monocytes/100 leukocyt esOrdered By: Dr. Gonzalez on 11-28-2022 Monocytes/100 WBC (Bld) 8.6 % 0-10 [facility] Blood platelet mean volumeOr dered By: Dr. Gonzalez on 11-28-2022 Platelet mean volume (Bld) [Entitic vol] 9.6 fL 6.2-12.0 [facility] Determination of erythrocyte mean corpuscular volume (MCV)Ordered By: Dr. Gonzalez on 11-28-2022 MCV (RBC) [Entitic vol] 97.3 fL 81-99 [facility] Hematocrit Auto (Bld) [Volum e fraction]Ordered By: Dr. Gonzalez on 11-28-2022 Hematocrit (Bld) [Volume fraction] 39.4 % 37-47 [facility] Laboratory - Chemistry and C hemistry - challengeOrdered By: Dr. Gonzalez on 11-28-2022 ALP [Catalytic activity/Vol] 68 U/L 45-117 [facility] ALT [Catalytic activity/Vol] 15 U/L 13-56 [facility] CO2 [Moles/Vol] 27.0 mmol/L 21.0-32.0 [facility] Globulin (S) [Mass/Vol] 3.2 g/dL 2.2-4.2 [facility] Urea nitrogen/Creatinine [Mass ratio] 15.1 mg/mg 10-20 [facility] Laboratory - Hematology and Cell countsOrdered By: Dr. oGnzalez on 11-28-2022 Erythrocyte distribution width (RBC) [Entitic vol] 44.0 fL 35.1-43.9 [facility] Erythrocyte distribution width (RBC) [Ratio] 12.3 % 11.6-14.6 [facility] Immature granulocytes/100 WBC (Bld) 0.400 % 0.0-0.9 [facility] Comment on above: IG% - Immature Granu locytes (promyelocytes, myelocytes and metamyelocytes) > 1% indicates that a LEFT SHIFT is Present. MCH (RBC) [Entitic mass] 32.6 pg 27.0-32.0 [facility] Nucleated RBC/100 WBC (Bld) [Ratio] 0 % 0-5 [facility] MCHC Auto (RBC) [Mass/Vol]Or dered By: Dr. Gonzalez on 11-28-2022 MCHC (RBC) [Mass/Vol] 33.5 g/dL 32-36 [facility] No Panel InformationOrdered By: Dr. Gonzalez on 11-28-2022 Estimated GFR (MDRD) Amer 75 mL/min >60 [facility] Comment on above: GFR Calc Estimated GFR (MDRD) Non-Af Amer 62 mL/min >60 [facility] Comment on above: Non- GFR Calc Platelets bldOrdered By: Dr. Gonzalez on 11-28-2022 Platelets (Bld) [#/Vol] 274 10*3/uL 150-450 [facility] Serum or plasma albumin cam urement (mass/volume)Ordered By: Dr. Gonzalez on 11-28-2022 Albumin [Mass/Vol] 3.5 g/dL 3.2-5.0 [facility] Serum or plasma albumin/glob ulin mass ratioOrdered By: Dr. Gonzalez on 11-28-2022 Albumin/Globulin [Mass ratio] 1.1 {ratio} 0.9-2.4 [facility] Serum or plasma calcium cam urement (mass/volume)Ordered By: Dr. Gonzalez on 11-28-2022 Calcium [Mass/Vol] 9.1 mg/dL 8.5-10.1 [facility] Serum or plasma cholesterol in HDL measurement (mass/volume)Ordered By: Dr. Gonzalez on 11-28-2022 Cholesterol in HDL [Mass/Vol] 60 mg/dL >40 [facility] Comment on above: The drugs N-Acetylcy steine and Metamizole may falsely depress this assay. Reference Range HDL <40 mg/dL Low HDL Cholesterol HDL >or= 60 mg/dL High HDL Cholesterol Serum or plasma cholesterol in VLDL measurement (mass/volume)Ordered By: Dr. Gonzalez on 11-28-2022 Cholesterol in VLDL [Mass/Vol] 34 mg/dL 5-40 [facility] Serum or plasma creatinine m easurement (mass/volume)Ordered By: Dr. Gonzalez on 11-28-2022 Creatinine [Mass/Vol] 0.93 mg/dL 0.55-1.02 [facility] Comment on above: The validity of the calculated GFR & GFRAA in patients over 70 years has not been determined. Clinical correlation is essential. Serum or plasma low density lipoprotein (LDL) cholesterol measurement (mass/volume)Ordered By: Dr. Gonzalez on 11-28-2022 Cholesterol in LDL [Mass/Vol] 127 mg/dL 0-130 [facility] Serum or plasma urea nitroge n measurement (mass/volume)Ordered By: Dr. Gonzalez on 11-28-2022 Urea nitrogen [Mass/Vol] 14 mg/dL 7-18 [facility] Thin prep Papanicolaou smear with manual screeningOrdered By: Dr. Gonzalez on 11-28-2022 Thin prep Papanicolaou smear with manual screening 15 U/L 15-37 [facility] Thin prep Papanicolaou smear with manual screening 8 5-15 [facility] Basophil percentageOrdered B y: Araceli Boucher on 10-08-2022 Basophil percentage < 0.9 mg/dL 0.55-1.02 [facility] No Panel InformationOrdered By: Araceli Boucher on 10-08-2022 Bedside Estimated GFR (eGFR) > 60.0000 mL/min >60 [facility] BD BONE DENSITY DEXA AXIAL S KELETONon 10-09-2019 BD BONE DENSITY DEXA AXIAL SKELETON ORIGINAL BONE DENSITOMETRY 10/09/2019 10:40 AM CLINICAL STATEMENT: SCREENING 74 years Female. COMPARISON: None T Score Left Femoral Neck: -1.4 BMD (g/cm2) Left Femoral Neck: 0.697 T Score Left Hip: -1.4 BM D (g/cm2) Left Hip: 0.773 T Score Lumbar [...] Date: 10/09/2019 12:35:39 PM Ordering Provider:Phoebe Cooper [facility] ([place] MA MAMMOGRAM SCREENING BILAT ERAL W/TOMOon 10-09-2019 MA MAMMOGRAM SCREENING BILATERAL W/TAYLER ORIGINAL FROM: [facility] [address], [place] [address] PROCEDURE FOR: DARA QUESADA [address] [place] [address] Home: PID#: [id number] Exam#: [id number] : 1945 Age: 74 TO: PHOEBE CEBALLOS MD [address] [place], [place] [address] #[id number] BILATERAL DIGITAL SCREENING MAMMOGRAM 3D/2D WITH CAD WITH MEDIOLATERAL OBLIQUE CRANIOCAUDAL: 10/09/2019 Comparison is made to exams dated: 10/03/2016 mammogram and 05/13/2014 mammogram - [facility]. The tissue of both breasts is heterogeneously dense. Current study was also evaluated with a Computer Aided Detection (CAD) system. No significant masses, calcifications, or other findings are seen in either breast. There has been no significant interval change. IMPRESSION: NEGATIVE There is no mammographic evidence of malignancy. A 1 year screening mammogram is recommended.( 0) Carlos Arthur M.D., [facility]. 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 Keyonna Gonzalez DO Work Phone: [facility] 07-20-2025 14:52-0400 Body mass index (BMI) [Ratio] 27.1 kg/m2 Dr. Keyonna Gonzalez DO Work Phone: [facility] 07-20-2025 14:52-0400 Body temperature 97.9 [degF] Dr. Keyonna Gonzalez DO Work Phone: [facility] 07-20-2025 14:52-0400 Body weight 76.[address] Keyonna Gonzalez DO Work Phone: [facility] 07-20-2025 14:52-0400 Diastolic blood pressure 78 mm[Hg] Dr. Keyonna Gonzalez DO Work Phone: [facility] 07-20-2025 14:52-0400 Heart rate 91 /min Dr. Keyonna Gonzalez DO Work Phone: [facility] 07-20-2025 14:52-0400 SaO2% (BldA) [Mass fraction] 96 % Dr. Keyonna Gonzalez DO Work Phone: [facility] 07-20-2025 14:52-0400 Systolic blood pressure 118 mm[Hg] Dr. Keyonna Gonzalez DO Work Phone: [facility] 07-02-2025 15:21-0400 Body height 167.[address] Keyonna Gonzalez DO Work Phone: [facility] 07-02-2025 15:21-0400 Body mass index (BMI) [Ratio] 26.1 kg/m2 Dr. Keyonna oGnzalez DO Work Phone: [facility] 07-02-2025 15:21-0400 Body temperature 97.3 [degF] Dr. Keyonna Gonzalez DO Work Phone: [facility] 07-02-2025 15:21-0400 Body weight 73.[address] Keyonna Gonzalez DO Work Phone: [facility] 07-02-2025 15:21-0400 Diastolic blood pressure 64 mm[Hg] Dr. Keyonna Gonzalez DO Work Phone: [facility] 07-02-2025 15:21-0400 Heart rate 85 /min Dr. Keyonna Gonzalez DO Work Phone: [facility] 07-02-2025 15:21-0400 Respiratory rate 16 /min Dr. Keyonna Gonzalez DO Work Phone: [facility] 07-02-2025 15:21-0400 SaO2% (BldA) [Mass fraction] 96 % Dr. Keyonna Gonzalez DO Work Phone: [facility] 07-02-2025 15:21-0400 Systolic blood pressure 104 mm[Hg] Dr. Keyonna Gonzalez DO Work Phone: [facility] 03-23-2025 16:15-0400 Body height 167.[address] Keyonna Gonzalez DO Work Phone: [facility] 03-23-2025 16:15-0400 Body mass index (BMI) [Ratio] 26.8 kg/m2 Dr. Keyonna Gonzalez DO Work Phone: [facility] 03-23-2025 16:15-0400 Body temperature 96.7 [degF] Dr. Keyonna Gonzalez DO Work Phone: [facility] 03-23-2025 16:15-0400 Body weight 75.[address] Keyonna Gonzalez DO Work Phone: [facility] 03-23-2025 16:15-0400 Diastolic blood pressure 78 mm[Hg] Dr. Keyonna Gonzalez DO Work Phone: [facility] 03-23-2025 16:15-0400 Heart rate 91 /min Dr. Keyonna Gonzalez DO Work Phone: [facility] 03-23-2025 16:15-0400 Respiratory rate 16 /min Dr. Keyonna Gonzalez DO Work Phone: [facility] 03-23-2025 16:15-0400 SaO2% (BldA) [Mass fraction] 95 % Dr. Keyonna Gonzalez DO Work Phone: [facility] 03-23-2025 16:15-0400 Systolic blood pressure 118 mm[Hg] Dr. Keyonna Gonzalez DO Work Phone: [facility] 12-03-2023 09:53-0500 Body height 166.[address] Keyonna Gonzalez Work Phone: [facility] 12-03-2023 09:53-0500 Body mass index (BMI) [Ratio] 28.5 kg/m2 Dr. Keyonna Gonzalez Work Phone: [facility] 12-03-2023 09:53-0500 Body temperature 97.9 [degF] Dr. Keyonna Gonzalez Work Phone: [facility] 12-03-2023 09:53-0500 Body weight 78.[address] Keyonna Gonzalez Work Phone: [facility] 12-03-2023 09:53-0500 Diastolic blood pressure 82 mm[Hg] Dr. Keyonna Gonzalez Work Phone: [facility] 12-03-2023 09:53-0500 Heart rate 83 /min Dr. Keyonna Gonzalez Work Phone: [facility] 12-03-2023 09:53-0500 Respiratory rate 16 /min Dr. Keyonna Gonzalez Work Phone: [facility] 12-03-2023 09:53-0500 SaO2% (BldA) [Mass fraction] 98 % Dr. Keyonna Gonzalez Work Phone: [facility] 12-03-2023 09:53-0500 Systolic blood pressure 128 mm[Hg] Dr. Keyonna Gonzalez Work Phone: [facility] 09-27-2023 14:22-0500 Body mass index (BMI) [Ratio] 27.6 kg/m2 Dr. Keyonna Gonzalez Work Phone: [facility] 09-27-2023 14:22-0500 Body temperature 98.6 [degF] Dr. Keyonna Gonzalez Work Phone: [facility] 09-27-2023 14:22-0500 Body weight 76.[address] Keyonna Gonzalez Work Phone: [facility] 09-27-2023 14:22-0500 Diastolic blood pressure 83 mm[Hg] Dr. Keyonna Gonzalez Work Phone: [facility] 09-27-2023 14:22-0500 Heart rate 79 /min Dr. Keyonna Gonzalez Work Phone: [facility] 09-27-2023 14:22-0500 Respiratory rate 16 /min Dr. Keyonna Gonzalez Work Phone: [facility] 09-27-2023 14:22-0500 SaO2% (BldA) [Mass fraction] 94 % Dr. Keyonna Gonzalez Work Phone: [facility] 09-27-2023 14:22-0500 Systolic blood pressure 139 mm[Hg] Dr. Keyonna Gonzalez Work Phone: [facility] 11-28-2022 13:26-0500 Body height 167.[address] Keyonna Gonzalez Work Phone: [facility] 11-28-2022 13:26-0500 Body mass index (BMI) [Ratio] 28 kg/m2 Dr. Keyonna Gonzalez Work Phone: [facility] 11-28-2022 13:26-0500 Body temperature 96.3 [degF] Dr. Keyonna Gonzalez Work Phone: [facility] 11-28-2022 13:26-0500 Body weight 78.[address] Keyonna Gonzalez Work Phone: [facility] 11-28-2022 13:26-0500 Diastolic blood pressure 70 mm[Hg] Dr. Keyonna Gonzalez Work Phone: [facility] 11-28-2022 13:26-0500 Heart rate 86 /min Dr. Keyonna Gonzalez Work Phone: [facility] 11-28-2022 13:26-0500 Respiratory rate 16 /min Dr. Keyonna Gonzalez Work Phone: [facility] 11-28-2022 13:26-0500 SaO2% (BldA) [Mass fraction] 95 % Dr. Keyonna Gonzalez Work Phone: [facility] 11-28-2022 13:26-0500 Systolic blood pressure 110 mm[Hg] Dr. Keyonna Gonzalez Work Phone: [facility] 09-26-2022 12:57-0500 Body height 167.[address] Keyonna Gonzalez Work Phone: [facility] Work Phone: 09-26-2022 12:57-0500 Body mass index (BMI) [Ratio] 28 kg/m2 Dr. Keyonna Gonzalez Work Phone: [facility] 09-26-2022 12:57-0500 Body temperature 96.7 [degF] Dr. Keyonna Gonzalez Work Phone: [facility] 09-26-2022 12:57-0500 Body weight 78.[address] Keyonna Gonzalez Work Phone: [facility] 09-26-2022 12:57-0500 Diastolic blood pressure 92 mm[Hg] Dr. Keyonna Gonzalez Work Phone: [facility] 09-26-2022 12:57-0500 Heart rate 74 /min Dr. Keyonna Gonzalez Work Phone: [facility] 09-26-2022 12:57-0500 Inhaled oxygen flow rate 97 L/min Dr. Keyonna Gonzalez Work Phone: [facility] 09-26-2022 12:57-0500 Respiratory rate 18 /min Dr. Keyonna Gonzalez Work Phone: [facility] 09-26-2022 12:57-0500 SaO2% (BldA) [Mass fraction] 97 % Dr. Keyonna Gonzalez Work Phone: [facility] 09-26-2022 12:57-0500 Systolic blood pressure 134 mm[Hg] Dr. Keyonna Gonzalez Work Phone: [facility] Encounters Encounter Date Encounter Type Care Provider Facility Start: 08-13-2025 ambulatory Keyonna Gonzalez Facilit y:[facility] Start: 07-21-2025 Non-patient / Non-visit Dr. Franky Delgado MD -[facility] Work Phone: Start: 07-21-2025 End: 07-21-[address] Keyonna Gonzalez DO Work Phone: -Pulmonary Services/Neurology Start: 07-21-2025 End: 07-21-2025 Patient encounter procedure Vamshi RUANO -Pulmonary Services/Neurology Work Phone: Start: 07-20-2025 End: 07-20-[address] Keyonna Bajwa DO -[facility] Work Phone: Start: 07-20-2025 End: 07-21-[address] Keyonna Gonzalez DO Work Phone: -[facility] Start: 07-12-2025 End: 07-12-[address] Keyonna Gonzalez DO Work Phone: -[facility] Start: 07-12-2025 End: 07-12-2025 Patient encounter procedure Vamshi RUANO -[facility] Start: 07-12-2025 End: 07-12-2025 ambulatory Vamshi Rodriges Facility:[facility] Start: 07-02-2025 End: 07-02-2025 Patient encounter procedure Vamshi RUANO -[facility] Work Phone: Start: 07-02-2025 End: 07-02-[address] Keyonan Gonzalez DO Work Phone: -[facility] Start: 05-31-2025 End: 05-31-2025 ambulatory TOBI JARA MD Facility:[facility] Start: 05-31-2025 End: 05-31-2025 Patient encounter procedure TOBI JARA MD [facility] Start: 05-24-2025 End: 05-24-2025 ambulatory KEYONNA GONZALEZ Facility:[facility] Start: 05-24-2025 End: 05-24-2025 Patient encounter procedure TOBI JARA MD [facility] Start: 04-21-2025 End: 04-21-[address] Keyonna Gonzalez DO Work Phone: -Outpatient Bone Densitometry Start: 04-21-2025 End: 04-21-[address] Keyonna Bajwa DO -[facility] Work Phone: Start: 04-21-2025 End: 04-21-2025 ambulatory Keyonna Gonzalez Facility:[facility] Start: 04-13-2025 End: 04-13-[address] Keyonna Gonzalez DO Work Phone: [facility] Work Phone: Start: 04-13-2025 End: 04-13-[address] Keyonna Bajwa DO -[facility]patient [facility] Work Phone: Start: 04-13-2025 End: 04-13-2025 ambulatory Keyonna Gonzalez Facility:[facility] Start: 03-23-2025 End: 03-23-[address] Keyonna Bajaw DO -[facility] Work Phone: Start: 03-23-2025 End: 03-23-[address] Keyonna Gonzalez DO Work Phone: [facility] Work Phone: Start: 09-18-2024 End: 09-18-2024 ambulatory Keyonna Gonzalez [facility] Start: 01-14-2024 End: 01-14-[address] Keyonna Gonzalez Work Phone: [facility] Work Phone: Start: 01-14-2024 End: 01-14-[address] Keyonna Gonzalez Work Phone: [facility]-Outpatient [facility] Imaging Work Phone: Start: 12-03-2023 End: 12-03-[address] Keyonna Gonzalez Work Phone: [facility] Work Phone: Start: 09-27-2023 End: 09-27-[address] Keyonna Gonzalez Work Phone: [facility] Work Phone: Start: 11-28-2022 End: 11-28-[address] Keyonna Gonzalez Work Phone: [facility] Work Phone: Start: 11-28-2022 End: 11-28-[address] Keyonna Gonzalez Work Phone: [facility] Start: 10-08-2022 End: 10-08-[address] Keyonna Gonzalez Work Phone: [facility] Work Phone: Start: 10-08-2022 End: 10-08-[address] Keyonna Gonzalez Work Phone: [facility] Start: 09-26-2022 End: 09-26-[address] Keyonna Gonzalez Work Phone: [facility] Internal [facility] Start: 03-01-2022 End: 04-03-[address] JULIANNE MCKENZIE DO [facility] Procedures Date Procedure Procedure Detail Performing Clinician Start: 04-21-2025 Dual energy X-ray absorptiometry Dr. Keyonna Gonzalez DO Work Phone: Start: 04-13-2025 Screening mammography Kilo Gonzalez DO Work Phone: Start: 01-14-2024 Screening mammography Kilo Gonzalez Work Phone: Start: 10-08-[address] Kasia Gonzalez Work Phone: Start: 10-08-2022 CT of head without contrast Dr. Keyonna Gonzalez Work Phone: Plan of Treatment Date Care Activity Detail Author Start: 04-21-2025 DXA Bone [Mass/Area] Bone density [facility] Start: 09-26-2022 Patient referral [facility] Work Phone: Ambulatory ECG [facility] CBC W Auto Different ial panel - Blood [facility] CBC W Auto Different ial panel - Blood [facility] Comprehensive metabo lic 1999 panel - Serum or Plasma [facility] Comprehensive metabo lic 2000 panel - Serum or Plasma [facility] DXA Bone [Mass/Area] Bone density [facility] DXA Bone [Mass/Area] Bone density [facility] MG Breast - bilateral Screening [facility] MG Breast - bilateral Screening [facility] Patient referral [facility] Work Phone: Radionuclide imaging of perfusion of myocardium under exercise stress [facility] Thyroid stimulating hormone measurement [facility] Immunizations Immunization Date Immunization Notes Care Provider Fa cility 11-21-2022 Covid (Moderna) Dr. Keyonna Gonzalez Work Phone: [facility] 09-26-2022 influenza, injectabl e, quadrivalent, preservative free Dr. Keyonna Gonzalez Work Phone: [facility] 09-26-2022 influenza, seasonal, injectable Dr. Keyonna Gonzalez Work Phone: [facility] 09-04-2021 Covid (Moderna) Dr. Keyonna Gonzalez Work Phone: [facility] 09-04-2021 influenza, injectabl e, quadrivalent, preservative free Dr. Keyonna Gonzalez Work Phone: [facility] 09-04-2021 influenza, seasonal, injectable Dr. Keyonna Gonzalez Work Phone: [facility] 02-21-2021 Covid (Moderna) Dr. Keyonna Gonzalez Work Phone: [facility] 01-24-2021 Covid (Modern) Dr. Keyonna Gonzalez Work Phone: [facility] 09-01-2020 influenza, injectabl e, quadrivalent, preservative free Dr. Keyonna Gonzalez Work Phone: [facility] 09-01-2020 influenza, seasonal, injectable Dr. Keyonna Gonazlez Work Phone: [facility] 09-21-2019 influenza, injectabl e, quadrivalent, preservative free Dr. Keyonna Gonzalez Work Phone: [facility] 09-21-2019 influenza, seasonal, injectable Dr. Keyonna Gonzalez Work Phone: [facility] 09-21-2019 pneumococcal polysaccharide vaccine, [address] Keyonna Gonzalez Work Phone: [facility] 08-29-2018 influenza, injectabl e, quadrivalent, preservative free Dr. Keyonna Gonzalez Work Phone: [facility] 08-29-2018 influenza, seasonal, injectable Dr. Keyonna Gonzalez Work Phone: [facility] 08-29-2018 pneumococcal conjuga te vaccine, [address] Keyonna Gonzalez Work Phone: [facility] Payers Date Payer Category Payer Private Health Insurance [id number] 2024 Private Health Insurance [facility] [id number] 2024 Self-pay [id number] 1945 Unknown [id number] 1945 Unknown [id number] Medicare [id number] Unknown [facility] [id number] Unknown [id number] Unknown [id number] Unknown [id number] Unknown [id number] Unknown [id number] Unknown [id number] Unknown [id number] Unknown [id number] Unknown [id number] Social History Date Type Detail Facility Tobacco smoking status No Smoking Status Entered [facility] Start: 1945 Sex Assigned At Female [facility] Start: 09-26-2022 End: 12-03-2023 Tobacco smoking status MEIS Unknown if ever smoked [facility] Start: 12-28-2020 None [facility] Start: 12-28-2020 Spouse/ Signif icant Other [facility] Start: 12-03-2023 Tobacco smoking status NHIS Ex-smoker (finding) [facility] Tobacco smoking status [facility] Start: 12-18-2018 Sex Female (finding) [facility] Sex Female [facility] Functional Status Date Assessment Result Facility [...] warmth, redness or signs if infection present. [facility] Clinical Notes 03-23-2025 to 07-20-2025 Note Date & Type Note Facility 07-20-2025 Progress note [facility] 07-20-2025 Progress note Note Date/Time July 20, 2025 3:21pm [facility] [address] [place] [address] OFFICE VISIT Date of Service: 07/20/25 MR#: [id number] Acct: [id number] Name: DARA QUESADA Rep #: [id number] : 1945 Provider: Dr. Del Gonzalez DO Age/Sex: 80/F Location: [facility] Status: Signed Intake Vital Signs 03/23/25 16:15 07/02/25 15:21 07/20/25 14:52 Height 5 ft 6 in 5 ft 6 in 5 ft 6 in Weight: 168 lb 8 oz BMI 27.1 BP 118/78 Blood Pressure Location Rt brachial Position Sitting Pulse 91 Pulse Source Monitor Temp 97.9 F Temp Source Temporal Pulse Oximetry (%) 96 Oxygen Delivery Method room air Intake Visit Reasons: FINGER GOING NUMB Chief Complaint: finger going numb Bb Shot Packer Required: No Accompanied by: Self Is patient in pain?: No Allergies aspirin Allergy (Severe, Verified 07/20/25 14:38) Stomach Pain atorvastatin (From Lipitor) Allergy (Severe, Verified 07/20/25 14:38) Joint Pain chlorpheniramine (From Isoclor) Allergy (Severe, Verified 07/20/25 14:38) Heart Races codeine Allergy (Severe, Verified 07/20/25 14:38) Heart Races esomeprazole (From Nexium) Allergy (Severe, Verified 07/20/25 14:38) Joint Pain guaifenesin (From Isoclor) Allergy (Severe, Verified 07/20/25 14:38) Heart Races ibuprofen (From Motrin) Allergy (Severe, Verified 07/20/25 14:38) Heart Races morphine Allergy (Severe, Verified 07/20/25 14:38) Rash naproxen (From Naprosyn) Allergy (Severe, Verified 07/20/25 14:38) Stomach Pain propoxyphene (From Darvon) Allergy (Severe, Verified 07/20/25 14:38) Other pseudoephedrine (From Isoclor) Allergy (Severe, Verified 07/20/25 14:38) Heart Races sulindac (From Clinoril) Allergy (Severe, Verified 07/20/25 14:38) Rash Penicillins Allergy (Intermediate, Verified 07/20/25 14:38) Rash Sulfa (Sulfonamide Antibiotics) Allergy (Intermediate, Verified 07/20/25 14:38) Rash cephalexin (From Keflex) Adverse Reaction (Severe, Verified 07/20/25 14:38) Other prednisone Adverse Reaction (Severe, Verified 07/20/25 14:38) stomach pain Medications ?Medication ?Instructions ?Recorded ?Confirmed ?Type multivitamin (Multiple Vitamins 1 tab PO QAM 01/21/18 07/20/25 History tablet) aflibercept 2 mg/0.05 mL 2 mg intravitreal Q6W 07/20/25 History intravitreal solution for injection (Eylea) citalopram 20 mg tablet 20 mg PO DAILY #90 tabs 02/2607/20/25 Rx celecoxib 200 mg capsule 200 mg PO QDAY 07/20/2506/29 History Have you fallen in the past year?: No Nurse's Note: patient c/o fluttering in chest, SOB, EKG was normal blood work done will be getting heart monitor to wear PFSH Medical History Macular degeneration Situational depression [...] participate in: none HPI HPI Chief Complaint: finger going numb Details: DARA QUESADA, is a 80 F who presents to the office today for palpitations and fluttering in the chest. Since she has stopped the medicine she was taking for her high eye pressure her nausea and hand and finger numbness have gone. What she is left with is this fluttery sensation in chest it comes and goes. She says she has had that since her 20s but usually was only in the spring and the fall and nobody was really able to give a name to it. ROS Const Constitutional: No body ache, excessive sweating, fatigue, fever(s), frequent falls, headache(s), snoring, weakness, weight change, sleep problems or change in appetite Eyes Eyes: No blurry vision, change in vision, eye pain or Light sensitivity ENT ENT: No abnormal hearing, ear or mastoid pain, tinnitus, nasal congestion, headache(s), neck pain or sore throat Resp Respiratory: No cough, shortness of breath, snoring or wheezing Cardio Cardiology: No chest pain at rest, chest pain with exertion, excessive sweating,shortness of breath, dyspnea on exertion, lightheadedness, orthopnea or palpitations Gastro GI: No abdominal pain, change in bowel habits, constipation, cramping, diarrhea,nausea/dyspepsia or vomiting Genitourinary-Female: No burning urination, painful urination, urinary incontinence, urinary frequency, blood in urine, abnormal periods or pelvic pain Musc Musculoskeletal: No abnormal gait, joint pain, back pain, limited range of motion, neck pain, numbness, stiffness, tingling or Arthritis Skin Skin: No dry skin, redness, lesions, itchy eyes, rash or wounds Neuro Neurology: No abnormal gait, abnormal hearing, abnormal speech, dizziness, weakness, frequent falls, headache(s), memory loss, numbness or tingling Psych Psychiatric: No anxiety, No change in appetite, No depression, No memory loss and No Thoughts of harming yourself/Others Endo Endocrine: No cold intolerance, excessive sweating, fatigue, flushing, heat intolerance, increased thirst/drinking, increased hunger or weight change Aller/Imm Allergy/Immunologic: No itchy eyes, seasonal allergy symptoms, hives or wheezing Jacques/Lymp Hematologic/Lymphatic: No easy bleeding, easy bruising or enlarged lymph nodes Exam Const General: cooperative and healthy appearing Nutritional Appearance: average body habitus HENMT Head: normal to inspection Ears: hearing grossly normal bilaterally Neck Neck: normal visual inspection and full ROM Thyroid: thyroid normal Chest Chest palpation & inspection: normal inspection of the chest Resp Effort & Inspection: normal respiratory effort Auscultation: Bilateral: Clear to Auscultation Cardio Rate: regular rate Rhythm: regular rhythm Heart Sounds: no murmurs Coding Level of Care Code Off vis,est,level 3 Diagnoses Mitral valve prolapse I34.1 Assessment and Plan Assessment and Plan (1) Mitral valve prolapse: Status: Chronic Plan: Patient's symptoms seem to be that of a mitral valve prolapse. She is uncertainas if she has ever had an echocardiogram so I will go ahead and order 1. I do not hear a murmur but that is not unusual in prolapse syndrome. She does have aHolter monitor scheduled for tomorrow and I think that is a good idea because atthis time she is asymptomatic and has no arrhythmia but that certainly is a possibility. As I mentioned before the bulk of her symptoms have disappeared since she stopped taking the valacyclovir and the other medication for her elevated eye pressure. Orders: Orders Echo Complete W/ Contrast Today I34.1 - Nonrheumatic mitral (valve) prolapse Clinical Quality Measures Falls Risk Screening/Assistive Devices Have you fallen in the past year?: No 07/20/25 1548 <Electronically signed by Keyonna randolph DO> Date _ Keyonna Gonzalez DO Cosigner Signature: Date (if applicable) CC: ~ [facility] Work Phone: 1(407) 600-628009-05-2025 Evaluation note* Diagnosis Onset Date Resolution Status Admit Date Fatigue acute July 02, 2025 2:50pm Palpitations acute June 2:50pm Paresthesia of hand, bilateral acute July 02, 025 2:50pm Mitral valve prolapse chronic Sep ber 2024 2:18pm [facility] Work Phone: 1(164) 426-500908-04-2025 Note* Exam Date Time Procedure Performing Provider Status 05/31/25 12:40 PM MRI Orbit w/ + w/o Contrast JOSSE SANCHEZ MD; Auth (Verified) [id number] ORIGINAL HISTORY: Right uveitis COMPARISON: No TECHNIQUE: 1. Axial and sagittal T1-weighted images. 2. Axial T2-weighted images. 3. Axial FLAIR images. 4. Axial diffusion-weighted images with ADC map. 5. Axial T2-weighted images with thin cuts through the orbits. 6. Coronal T2-weighted images of the orbits with fat saturation. 7. Coronal T1-weighted images of the orbits. 8. Axial and coronal T1-weighted images of the orbits with fat saturation following uncomplicated administration of intravenous gadolinium contrast. 9. Axial, coronal and sagittal T1-weighted images following uncomplicated administration of intravenous gadolinium contrast. FINDINGS: The study is mildly degraded by motion. The ventricles and sulci are normal in size and configuration. There are no abnormal intra or extra-axial fluid collections. There are a few scattered punctate T2 hyperintensities in the cerebral white matter. There is sellar remodeling and there is an empty sella. Gandara-white matter differentiation is maintained. There is no abnormal restriction of diffusion. There is no abnormal enhancement of the brain or its coverings. There is cataract surgery on the right. The globes are normal in caliber and symmetric. The optic nerves and nerve sheaths are suboptimally visualized but appear within normal limits and symmetric. The extraocular muscles are normal in course and caliber. The intra and extraconal fat is unremarkable in appearance. IMPRESSION: Right cataract surgery, otherwise unremarkable examination of the orbits. Mild volume loss. Mild sellar remodeling and empty sella, at least suggestive of intracranial hypertension. Interpreted by: Nino Sanchez MD Preliminary Report By: Nino Sanchez MD Electronically signed By Nino Sanchez MD Dictated Date: 05/31/2025 12:53:58 PM Prelim Date: 05/31/2025 12:57:13 PM Sign Date: 05/31/2025 12:57:13 PM Ordering Provider: [facility]07-28-2025 Note* Exam Date Time Procedure Performing Provider Status 05/24/25 10:58 AM XR Chest 2 Views HARDIK BROWN MD; Auth (Verified) [id number] ORIGINAL EXAMINATION: TWO XRAY VIEWS OF THE CHEST TECHNIQUE: CHEST PA and LATERAL COMPARISON: Chest x-ray 10/10/2017 HISTORY: ORDERING SYSTEM PROVIDED HISTORY: Reason for Exam: Panuveitis right eye FINDINGS: The heart is not enlarged. The mediastinal silhouette is unremarkable. No consolidation. No vascular congestion. No pleural effusion. No pneumothorax. No aggressive osseous lesions. Surgical clips in the right upper quadrant. IMPRESSION: No acute radiographic finding. I have personally reviewed the images of this examination and agree with the resident's findings and interpretation. Interpreted by: Hardik Brown MD Preliminary Report By: Hunter Houston Electronically signed By Hardik Brown MD Dictated Date: 05/24/2025 1:23:47 PM Prelim Date: 05/24/2025 4:08:37 PM Sign Date: 05/24/2025 4:08:37 PM Ordering Provider: TOBI JARA [facility]05-27-2025 Evaluation note* Diagnosis Onset Date Resolution Status Admit Date Macular degeneration of both eyes [place] March 23, 2025 4:05pm Reflux gastritis acute February 4:05pm Arthritis chronic March 23, 2025 4:05pm Hyperlipemia chronic March 23 4:05pm Osteopenia chronic March 23, 2025 4:05pm [facility] Work Phone: [phone]) 128-370105-27-2025 Evaluation note* Diagnosis Onset Date Resolution Status Admit Date Macular degeneration of both eyes acute March 23, 2025 4 :05pm Reflux gastritis acute February 4:05pm Arthritis chronic March 23, 2025 4:05pm Hyperlipemia chronic March 23 4:05pm Osteopenia chronic March 23, 2025 4:05pm Fatigue acute July 02, 2025 2:50pm Palpitations acute June 2:50pm [facility] Work Phone: Evaluation + Plan note No data available for this section [facility] Evaluation + Plan note Future Appointments Appointment Date:05/31/2025 11:45:00 AM Scheduled Provider: Location:[facility] Appointment Type:MRI Brain w/ + w/o Contrast Diagnostic Tests Pending * Angiotensin-Converting Enzyme 05/24/25 * Fluorescent Treponemal Antibody-Absorption 05/24/25 * QFT-TB Plus (Client Incubated) 05/24/25 * Lyme Disease Serology w/Reflex 05/24/25 * Miscellaneous LC Test 05/24/25 * HSV 1 and 2 Ab, IgG 05/24/25 * Varicella Zoster Antibody 05/24/25 Future Scheduled Tests Radiology* MRI Brain w/ + w/o Contrast 05/31/25 [facility] Evaluation note* Diagnosis Onset Date Resolution Status Change in mole noneactive Influenza vaccine administered noneactive Headache noneactive Fall noneactive [facility] Work Phone: Evaluation note* Diagnosis Onset Date Resolution Status Change in mole noneactive Influenza vaccine administered noneactive Headache noneactive Fall noneactive Physical exam, annual acute Situational depression acute Osteopenia chronic [facility] Work Phone: Evaluation note* Diagnosis Onset Date Resolution Status Acute bronchitis acute Physical exam, annual acute Situational depression acute Arthritis chronic [facility] Work Phone: Evaluation note* Diagnosis Onset Date Resolution Status Admit Date Arthritis chronic March 23, 2025 4:05pm Hyperlipemia chronic March 23 4:05pm Osteopenia chronic March 23, 2025 4:05pm [facility] Work Phone: Hospital Discharge instructions No data available for this section [facility] Progress note No data available for this section [facility] Reason for referral (narrative)No reason for referral [facility] Work Phone: Summary Purpose Family History No [...] Yes December 28, 2020 11:50pm Power of Crm Functional Analyst Yes December 28 11:50pm Advance Directive Response Recorded Date/ Time Living Will Yes December 29, 2020 12:50am Power of Crm Functional Analyst Yes December 29 12:50am Chief Complaint and [...] Situational depression Arthritis Chief Complaint Admit Date March 23, 2025 4:05p m Reason for Visit Admit Date Arthritis March 23, 2025 4:05p m Hyperlipemia March 23, 2025 4:05p m Osteopenia March 23, 2025 4:05p m Chief Complaint Admit Date March 23, 2025 4:05p m SCREENING OSTEO April 13, 2025 12:5 7pm Reason for Visit Admit Date Macular degeneration of both eyes March 232024 4:05pm Reflux gastritis March 23, 2025 4:05p m Arthritis March 23, 2025 4:05p m Hyperlipemia March 23, 2025 4:05p m Osteopenia March 23, 2025 4:05p m Chief Complaint Admit Date March 23, 2025 4:05p m SCREENING OSTEO April 13, 2025 12:5 7pm SCREENING OSTEO April 21, 2025 9:46 am Chief Complaint Admit Date March 23, 2025 4:05p m SCREENING OSTEO April 13, 2025 12:5 7pm SCREENING OSTEO April 21, 2025 9:46 am Dizziness, possible flutters/med side ef fects July 02, 2025 2:50pm Reason for Visit Admit Date Macular degeneration of both eyes March 232024 4:05pm Reflux gastritis March 23, 2025 4:05p m Arthritis March 23, 2025 4:05p m Hyperlipemia March 23, 2025 4:05p m Osteopenia March 23, 2025 4:05p m Fatigue July 02, 2025 2:50pm Palpitations July 02, 2025 2:50pm Chief Complaint Admit Date SCREENING OSTEO April 13, 2025 12:5 7pm SCREENING OSTEO April 21, 2025 9:46 am Dizziness, possible flutters/med side ef fects July 02, 2025 2:50pm FINGER GOING NUMB July 20, 2025 2:18pm PALPITATIONS July 21, 2025 11:47am Reason for Visit Admit Date Fatigue July 02, 2025 2:50pm Palpitations July 02, 2025 2:50pm Paresthesia of hand, bilateral July 02, 2025 2:50pm Mitral valve prolapse July 20 2:18pm Chief Complaint Admit Date SCREENING OSTEO April 13, 2025 12:5 7pm SCREENING OSTEO April 21, 2025 9:46 am Dizziness, possible flutters/med side ef fects July 02, 2025 2:50pm FINGER GOING NUMB July 20, 2025 2:18pm PALPITATIONS July 21, 2025 11:47am PALPITATIONS July 21, 2025 11:58am Additional Source Comments INFORMATION SOURCE (unrecogn ized section and content) DATE CREATED AUTHOR 10/13/2019 [facility] ([place]) DATE CREATED AUTHOR AUTHOR'S ORGANIZ ATION 06/04/2025 [facility] DATE CREATED AUTHOR AUTHOR'S ORGANIZ ATION 08/03/2025 [facility] Care Team (unrecognized sect ion and content) Team Status: Active Member Role Status Dates Dr. Keyonna Gonzalez DO Family Provider Active Dr. Keyonna Gonzalez DO Primary Care Provider Active Team Status: Inactive Member Role Status Dates Dr. Keyonna Gonzalez DO Primary Care Provider, Referr ing Provider Active BINDU Dao Attending Provider Active Team Status: Inactive Member Role Status Dates Dr. Keyonna Gonzalez DO Primary Care Pr ovider, Attending Provider, Referring Provider Active Team Status: Inactive Member Role Status Dates Dr. Keyonna Gonzalez DO Primary Care Provider Active BINDU Dao Attending Provider, Referring Pro vider Active Team Status: Inactive Member Role Status Dates Dr. Keyonna Gonzalez DO Primary Care Provider, Referr ing Provider [...] April 13, 2025 End: April 13, 2025 Team Status: Active Member Role/Relationship Status Dates Dr. Keyonna Gonzalez DO Primary Care Provider Active Team Status: Inactive Member Role/Relationship Status Dates Dr. Keyonna Gonzalez DO Primary Care Provider Active Start: March 23, 2025 End: March 23, 2025 Dr. Keyonna Gonzalez DO Attending Provider Active Start: March 23, 2025 End: March 23, 2025 Dr. Keyonna Gonzalez DO Referring Provider Active Start: March 23, 2025 End: March 23, 2025 Team Status: Inactive Member Role/Relationship Status Dates Dr. Keyonna Gonzalez DO Primary Care Provider Active Start: April 13, 2025 End: April 13, 2025 Dr. Keyonna Gonzalez DO Attending Provider Active Start: April 13, 2025 End: April 13, 2025 Dr. Keyonna Gonzalez DO Referring Provider Active Start: April 13, 2025 End: April 13, 2025 Team Status: Inactive Member Role/Relationship Status Dates Dr. Keyonna Gonzalez DO Primary Care Provider Active Start: April 21, 2025 End: April 21, 2025 Dr. Keyonna Gonzalez DO Attending Provider Active Start: April 21, 2025 End: April 21, 2025 Dr. Keyonna Gonzalez DO Referring Provider Active Start: April 21, 2025 End: April 21, 2025 Team Status: Inactive Member Role/Relationship Status Dates Dr. Keyonna Gonzalez DO Primary Care Provider Active Start: July 02, 2025 End: July 02, 2025 Dr. Keyonna Gonzalez DO Referring Provider Active Start: July 02, 2025 End: July 02, 2025 Vamshi RUANO PA Attending Provider Active St art: July 02, 2025 End: July 02, 2025 Team Status: Active Member Role/Relationship Status Dates Dr. Keyonna Gonzalez DO Primary care physician Active Team Status: Inactive Member Role/Relationship Status Dates Dr. Keyonna Gonzalez DO Primary care physician Active Start: April 13, 2025 End: April 13, 2025 Dr. Keyonna Gonzalez DO Attending physician Active Start: April 13, 2025 End: April 13, 2025 Dr. Keyonna Gonzalez DO Referring Provider Active Start: April 13, 2025 End: April 13, 2025 Team Status: Inactive Member Role/Relationship Status Dates Dr. Keyonna Gonzalez DO Primary care physician Active Start: April 21, 2025 End: April 21, 2025 Dr. Keyonna Gonzalez DO Attending physician Active Start: April 21, 2025 End: April 21, 2025 Dr. Keyonna Gonzalez DO Referring Provider Active Start: April 21, 2025 End: April 21, 2025 Team Status: Inactive Member Role/Relationship Status Dates Dr. Keyonna Gonzalez DO Primary care physician Active Start: July 02, 2025 End: July 02, 2025 Dr. Keyonna Gonzalez DO Referring Provider Active Start: July 02, 2025 End: July 02, 2025 BINDU Ramos Attending physician Active S tart: July 02, 2025 End: July 02, 2025 Team Status: Inactive Member Role/Relationship Status Dates Dr. Keyonna Gonzalez DO Primary care physician Active Start: July 12, 2025 End: July 12, 2025 BINDU Ramos Attending physician Active S tart: July 12, 2025 End: July 12, 2025 BINDU Ramos Referring Provider Active St art: July 12, 2025 End: July 12, 2025 Team Status: Inactive Member Role/Relationship Status Dates Dr. Keyonna Gonzalez DO Primary care physician Active Start: July 20, 2025 End: July 20, 2025 Dr. Keyonna Gonzalez DO Attending physician Active Start: July 20, 2025 End: July 20, 2025 Dr. Keyonna Gonzalez DO Referring Provider Active Start: July 20, 2025 End: July 20, 2025 Team Status: Active Member Role/Relationship Status Dates Dr. Keyonna Gonzalez DO Primary care physician Active Start: July 21, 2025 BINDU Ramos Attending physician Active S tart: July 21, 2025 BINDU Ramos Referring Provider Active St art: July 21, 2025 Team Status: Inactive Member Role/Relationship Status Dates Dr. Keyonna Gonzalez , Primary care physician Active Start: July 21, 2025 End: July 21, 2025 BINDU Ramos Attending physician Active S tart: July 21, 2025 End: July 21, 2025 BINDU Ramos Referring Provider Active St art: July 21, 2025 End: July 21, 2025 Team Status: Active Member Role/Relationship Status Dates Dr. Keyonna Gonzalez , Primary care physician Active Start: July 21, 2025 Dr. Franky Delgado MD Attending physician Active Start: July 21, 2025 BINDU Ramos Referring Provider Active St art: July 21, 2025 Goals (unrecognized section and content) Goals [...] BE BASED ON THE PRIMARY CLINICAL RECORDS. [facility] [employer] [facility]. provides no warranty or guarantee of the accuracy or completeness of information in this document.
== END | disposition home or self-care (01) ==
LOC: CVS 12:53
PROVIDERS: PCP Family Medicine; Referring Provider Family Medicine; Visit Provider Family Medicine
DX: I34.1 Nonrheumatic mitral (valve) prolapse (principal)
CPT/HCPCS: 93306